=== PATIENT | female | born 1970 | race African-American/Black ===

== ENCOUNTER 2018-12-10 17:32 | Inpatient (IN) | payer BC, OTHER, SELFPAY ==
[2018-12-10] MEDS ORDERED: niCARdipine 20MG In NaCl 20 MG/200 ML BAG ONE ×2 (17:48→19:35)
[2018-12-10] MEDS ORDERED: Ondansetron PF 4 MG/2 ML Vial ONE (17:48)
[2018-12-10] MEDS ORDERED: Tranexamic Acid 1,000 MG/10 ML VIAL ONE (17:48)
[2018-12-10 17:53] LABS: #Basophils 0.1 thou/uL (0.0-0.2); #Eosinphils 0.2 thou/uL (0.0-0.7); #Lymphocytes 3.3 thou/uL (1.20-3.40); #Monocytes 1.1 thou/uL (0.11-0.59); #Neutrophils 5.7 thou/uL (1.40-6.50); %Basophils 0.7 % (0.0-1.0); %Eosinophils 1.5 % (0.0-10.0); %Lymphocytes 31.9 % (21.0-51.0); %Monocytes 10.5 % (0.0-10.0); %Neutrophils 55.4 % (42.0-75.0); Hemoglobin 12.9 g/dL (12.0-16.0); Mean Corpuscular Hemoglobin 28.5 pg (27.0-31.0); Mean Corpuscular Volume 89.1 fL (78.0-98.0); Mean Platelet Volume 9.6 fL (7.4-10.4); Platelet Count 318 thou/uL (130-400); RBC Distribution Width 14.3 % (11.5-14.5); Red Blood Cell (RBC) Count 4.52 mill/uL (4.20-5.40); White Blood Cell (WBC) Count 10.3 thou/uL (4.8-10.8)
[2018-12-10 17:57] LABS: PTT 33.5 SEC (22.9-36.1); Prothrombin Time 13.6 SEC (12.0-14.7)
[2018-12-10 18:28] LABS: ALT (SGPT) 12 U/L (8-55); AST (SGOT) 15 U/L (5-34); Alkaline Phosphatase 88 U/L (40-150); Anion Gap 15 mmol/L (10-20); BUN (Urea Nitrogen) 10 mg/dL (7.0-18.7); Bilirubin, Total 0.2 mg/dL (0.2-1.2); CK (CPK) 130 U/L (29-168); Calc. Creatinine Clearance 0 mL/min (70-130); Calcium 9.3 mg/dL (7.8-10.44); Chloride 106 mmol/L (98-107); Estimated GFR-MDRD 54; Globulin 3.8 g/dL (2.4-3.5); Glucose 95 mg/dL (70-105); Protein, Total 7.8 g/dL (6.0-8.3); Sodium 139 mmol/L (136-145)
[2018-12-10] MEDS ORDERED: Ondansetron PF 4 MG/2 ML Vial IVP PRN (18:28)
[2018-12-10] MEDS ORDERED: niCARdipine HCl 25 MG in Sodium Chloride 0.9% 250 ML 240 ML IVPB PRN (18:28)
[2018-12-10 18:31] LABS: Carbon Dioxide 21 mmol/L (22-29)
[2018-12-10] MEDS ORDERED: Morphine 4 MG/ML VIAL SLOW IVP PRN (18:32)
--- NOTE | 2018-12-10 18:58 | CT ---
CT HEAD NONCONTRAST: History: Fall. Dizziness. Altered mental status. FINDINGS: Centered at the left thalamus and basal ganglia is a large irregular shaped hyperdense fluid collecti on measuring up to 4.0 cm width x 2.0 cm depth. A small amount of hyperdense fluid extends into the s ulci about the left temporal lobe and frontal lobe. Small amount of hyperdense material within the di ffusely effaced lateral ventricles. There is diffuse effacement of the cerebral sulci. Minimal rightw sophia shift of the septum pellucidum. IMPRESSION: 1. Large intraaxial acute hematoma centered at the left thalamus with small amount of intraventricula r extension and small amount of subarachnoid component. 2. Severe cerebral edema. Findings were called to Dr. Walters in the Emergency Department at 1741 hours. Code CR. POS: DACIA
[2018-12-10 19:01] LABS: Bilirubin Negative (Negative); Blood, Urine Negative (Negative); Clarity CLEAR (Clear); Glucose, Urine (Dipstick) Negative (Negative); Leukocyte Negative (Negative); Nitrite Negative (Negative); Protein, Urine (Dipstick) 30 mg/dL (Neg-Trace); Specific Gravity, Urine 1.007 (1.002-1.036); Urobilinogen 0.2 mg/dL (0.2-1.0); pH, Urine 7.5 (5.0-9.0)
[2018-12-10 19:03] LABS: Bacteria/HPF None Seen HPF (None Seen); Hyaline Casts/LPF 0-3 HYALINE CAST LPF (0-3 Hyaline); RBC/HPF None Seen HPF (0-3); Squamous Epithelial 0-3 HPF (0-3); WBC/HPF 0-3 HPF (0-3)
--- NOTE | 2018-12-10 19:51 | RAD ---
RADIOGRAPH CHEST 1 VIEW: Date: 12/10/18 Time: 6:23 p.m. HISTORY: 48-year-old female with altered mental status. COMPARISON: None available. FINDINGS: Diffuse bilateral mixed interstitial-alveolar densities, probably representing pulmonary edema. Cardi omegaly. No pneumothorax identified. IMPRESSION: Cardiomegaly and diffuse infiltrates that probably represent pulmonary edema, suggestive of congestiv e heart failure. ARGENIS [] POS: JIN
[2018-12-10] MEDS ORDERED: Lorazepam 2 MG/ML VIAL ONE (20:59)
[2018-12-10] MEDS ORDERED: Midazolam HCl 2 mg/2 ml Vial ONE (20:59)
[2018-12-10] MEDS ORDERED: Propofol 1,000 MG/100 ML VIAL IV ONE (21:04)
[2018-12-10] MEDS: Sodium Chloride 0.9% 1,000 ML IV SCH (21:10)
[2018-12-10] MEDS ORDERED: CCU Electrolyte Replacement 1 EACH FS ONE (21:33)
[2018-12-10] MEDS ORDERED: Ventilator Sedation Protocol 1 EACH FS ONE (21:33)
[2018-12-10] MEDS ORDERED: Fentanyl BOLUS 250 ML IVPB PRN (21:37)
[2018-12-10] MEDS ORDERED: fentaNYL Citrate/PF 2,000 MCG in Sodium Chloride 0.9% 60 ML IV SCH (21:37)
[2018-12-10] MEDS ORDERED: Potassium Phosphate 12 MMOL in Sodium Chloride 0.9% 250 ML 250 ML IV PRN (21:37)
[2018-12-10] MEDS ORDERED: DISCONTINUE PREVIOUS NARCOTIC PAIN MEDICATIONS AND BENZODIAZEPINES FS SCH (21:37)
[2018-12-10] MEDS ORDERED: Lorazepam 2 MG/ML VIAL SLOW IVP PRN (21:37)
[2018-12-10] MEDS ORDERED: Potassium Phosphate 9 MMOL in Sodium Chloride 0.9% 100 ML IVPB PRN (21:37)
[2018-12-10] MEDS ORDERED: Propofol BOLUS 1,000 MG/100 ML VIAL IV PRN (21:37)
[2018-12-10] MEDS ORDERED: CCU ELECTROLYTE REPLACEMENT PROTOCOL FS PRN (21:37)
[2018-12-10] MEDS ORDERED: Potassium Chloride 40 MEQ in Sodium Chloride 0.9% 250 ML 250 ML IVPB PRN (21:37)
[2018-12-10] MEDS ORDERED: Potassium Chloride 40 MEQ in Premix Bag 1 BAG IVPB PRN (21:37)
[2018-12-10] MEDS ORDERED: Magnesium 2 GM/NS 0.9% 100 ML 2 GM in Premix Bag 1 BAG IVPB PRN (21:37)
[2018-12-10] MEDS ORDERED: Potassium Phosphate 15 MMOL in Sodium Chloride 0.9% 250 ML 250 ML IV PRN (21:37)
[2018-12-10] MEDS ORDERED: Magnesium Oxide 400 MG TAB PO PRN ×2 (21:37)
[2018-12-10] MEDS: niCARdipine HCl 50 MG in Sodium Chloride 0.9% 250 ML 230 ML IVPB PRN (21:39)
[2018-12-10 21:55] LABS: Actual Bicarbonate (HCO3a) 26.6 mEq/L (22-28); Base Excess (BEa) 2.8 mEq/L (-2.0 to +3.0); CO2 Tension 38.3 mmHg (35.0-45.0); Calcium, Ionized 1.12 mmol/L (1.12-1.30); Hemoglobin (Hb) 13.2 g/dL (12.0-16.0); O2 Tension (PaO2) 76.5 mmHg (80.0-100.0); Potassium - ABG Lab 3.01 mmol/L (3.70-5.30); pH, Arterial 7.46 (7.35-7.45)
[2018-12-10] MEDS ORDERED: Potassium Chloride 40 MEQ in Sodium Chloride 0.9% 500 ML IVPB ONE (22:00)
[2018-12-10] MEDS: Labetalol HCl 100 MG/20 ML VIAL SLOW IVP PRN (22:11)
[2018-12-10] MEDS: Famotidine/PF 20 mg/2ml Vial SLOW IVP SCH (22:12)
[2018-12-10 22:40] LABS: ALV-art Gradient 160.825 (0-20); Puncture Site LRA
--- NOTE | 2018-12-10 22:49 | OP ---
DATE OF PROCEDURE: 12/10/2018 PROCEDURE: Fiberoptic bronchoscopy with endotracheal intubation. PREOPERATIVE DIAGNOSIS: Impending respiratory failure after thalamic bleed. POSTOPERATIVE DIAGNOSIS: Successful intubation. ANESTHESIA: Given 2 mg of Versed IV. DESCRIPTION OF PROCEDURE: This was done on an emergent basis because for airway control. Bite block was placed in the patient's mouth. She was given 2 mg of Versed IV for induction. Bronchoscope was placed through the bite block. Vocal cords identified and the scope was passed through the vocal cords. A 7.5 endotracheal tube was passed over the scope into the airway and the endotracheal tube was secured at 22 cm of the lip with the tube approximately 4 cm above the vijay. The patient was then placed on mechanical ventilation. Job ID: [id number]
[2018-12-10 23:06] LABS: Pregnancy Test - Urine (BHCG) Negative (Negative); Pregu Control Background? CLEAR/WHITE (CLR/WHITE); Pregu Control Bar Appear? YES (CONTROL BAR); Specific Gravity 1.009 (1.002-1.036)
--- NOTE | 2018-12-10 23:18 | CON ---
DATE OF CONSULTATION: 12/10/2018 PULMONARY CRITICAL CARE CONSULTATION CONSULTING PROVIDER: Francine Emanuel PA-C from the Neurosurgical Service. The following encompassed 45 minutes of critical care time and is not inclusive of the time spent performing bronchoscopic endotracheal intubation. HISTORY OF PRESENT ILLNESS: At the time of this dictation, history and physical was not on the chart, so I am relying on what is written in the emergency room report. She is a 48-year-old black female, who was brought to the ER by her after they were shopping and she was complaining of dizziness and right lower extremity weakness. Apparently, she became obtunded in the ER. GCS was listed as 8. I was called by the nursing staff in the ICU, because of concern of the patient's airway. I have not heard about the patient prior to her arrival in the CCU. Upon my arrival, the patient was clearly in respiratory distress. Unable to handle her secretions and necessitated emergent endotracheal intubation. PAST MEDICAL HISTORY: 1. Hypertension. 2. Hyperlipidemia. PAST SURGICAL HISTORY: Cholecystectomy. PSYCHIATRIC HISTORY: Not known. SOCIAL HISTORY: Apparently does not smoke. Does not use drugs. Does not consume alcohol. ALLERGIES: NONE. MEDICATIONS: Prior to admission, aspirin 81 mg daily is listed. REVIEW OF SYSTEMS: Unobtainable. FAMILY MEDICAL HISTORY: Unknown. PHYSICAL EXAMINATION: VITAL SIGNS: Heart rate 97, blood pressure 177/92, O2 saturation 94%, respiratory rate 21. GENERAL: This is a middle-aged female, who is obtunded before intubated. HEENT: She would further open her eyelids, but she had dysconjugate gaze. She was unable to move her right arm or right leg. She did spontaneously move her left arm and had slight movement of her left leg. HEENT examination is remarkable for enlarged tongue. NECK: No adenopathy or JVD. LUNGS: Clear without wheezing or rhonchi. CARDIOVASCULAR: S1 and S2 regular. ABDOMEN: Soft, obese, nontender. EXTREMITIES: No clubbing, cyanosis, or edema. LABORATORY DATA: Sodium 139, potassium 3, chloride 106, CO2 of 21, BUN 10, creatinine 1.0, glucose 95, albumin 4.0. Urinalysis shows some proteinuria. INR 1.0, PTT 33.5, white blood cell count 10.3, hematocrit 40.3, and platelet count 318. Her CT of the brain shows a left thalamic area bleed with small amount of intraventricular extension and small subarachnoid component. She had severe cerebral edema present. Her chest x-ray shows cardiomegaly, no effusion or infiltrate that is obvious. ASSESSMENT: 1. Large thalamic bleed. 2. Cerebral edema. 3. Impending respiratory failure, secondary to airway compromise. 4. Hypokalemia. PLAN: 1. The patient needed emergent endotracheal intubation. See separate operative report. Intubation was obtained on the first try bronchoscopically with 7.5 endotracheal tube and position was confirmed by the bronchoscope. 2. Hypertension, controlled with Cardene. 3. Need to touch base with Neurosurgery concerning management of cerebral edema. 4. Mechanical ventilatory support. 5. Replace potassium. Job ID: [id number]
--- NOTE | 2018-12-10 23:28 | CT ---
CT HEAD NONCONTRAST: 12/10/18 HISTORY: Intracranial hemorrhage. Worsening mental state. COMPARISON: Earlier exam on the same date. FINDINGS: Large left basal ganglia hematoma has increased in size up to 5.1 x 2.1 cm diameters on the axial adi ges. There is now continuity with an increasing amount of intraventricular hemorrhage. Temporal horns are slightly dilated. Left temporofrontal subarachnoid hemorrhage has increased slightly. Diffuse ef facement of the cerebral sulci remains. IMPRESSION: Significant worsening of intraparenchymal hematoma and subarachnoid hemorrhage with interventricular extension and developing hydrocephalus. Findings were called to Francine Reesndez at 2317 hours. Code CR POS: [email or web address]
[2018-12-10] MEDS ORDERED: manNITOL 20% 500 ML IVPB SCH (23:45)
[2018-12-10] MEDS: hydrALAZINE 20 MG/ML VIAL SLOW IVP PRN (23:59)
[2018-12-11] MEDS ORDERED: Dextrose 5% in Water 1,000 ML IV PRN ×2 (00:38→08:39)
[2018-12-11] MEDS ORDERED: Dextrose 50% Abboject 50 ML SYRINGE SLOW IVP PRN ×2 (00:38→08:39)
[2018-12-11] MEDS ORDERED: HumaLOG 300 UNITS/3 ML VIAL SC PRN ×2 (00:38)
--- NOTE | 2018-12-11 00:42 | PDOC.PN ---
- Subjective Encounter Start Date: 12/11/18 Encounter Start Time: 00:40 Subjective: Pt seen & examined in CCU.Chart reviewed in detail.discussed w RN -: admitted to NS for ICH.R sided weakness BASTING MARKER. -: Ct shows Left sided ICH w intraventricular extension & edema Repeat CT shows worsening edema and extension of hemorrhage IM team consulted for medical management and BP management Pt was intubated earlier for airway protection.Currently sedated. - Objective MAR Reviewed: Yes Vital Signs & Weight: Vital Signs (12 hours) Pulse Resp Pulse Ox 12/10/18 23:59 93 12/10/18 23:34 93 19 99 12/10/18 22:11 96 Weight Weight 245 lb 9.519 oz Most Recent Monitor Data Heart Rate from ECG 92 NIBP 177/92 NIBP BP-Mean 120 Respiration from ECG 17 SpO2 100 Result Diagrams: 12/10/18 17:40 12/10/18 18:00 Additional Labs: Accuchecks 12/10/18 17:38 POC Glucose 108 Laboratory Tests 12/10/18 12/10/18 17:40 22:34 Troponin I Less than 0.010 Urine Test Negative Phys Exam - Physical Examination Constitutional: NAD sedated.R side w some twitching ,o/w immobile HEENT: moist MMs, sclera anicteric, oral pharynx no lesions ETT.Pinpoint pupils w/o reaction to light Neck: no nodes, no JVD, supple, full ROM Respiratory: no wheezing, no rales, no rhonchi, clear to auscultation bilateral Cardiovascular: RRR, no significant murmur Gastrointestinal: soft, non-tender, no distention, positive bowel sounds Musculoskeletal: no edema, pulses present limited d/t sedation.pupils non reactive.R hemiparesis Deviation from normal: sedated Skin: no rash Dx/Plan (1) ICH (intracerebral hemorrhage) Code(s): I61.9 - NONTRAUMATIC INTRACEREBRAL HEMORRHAGE, UNSPECIFIED Status: Acute Qualifiers: Intracerebral hemorrhage etiology: nontraumatic Laterality: left Comment: elainaley hypertensive (2) Hypertensive emergency Code(s): I16.1 - HYPERTENSIVE EMERGENCY Status: Acute (3) Hyperglycemia Code(s): R73.9 - HYPERGLYCEMIA, UNSPECIFIED Status: Acute (4) Hypokalemia Code(s): E87.6 - HYPOKALEMIA Status: Acute - Plan DVT proph w/SCDs Cont Nicardipine drip. add PRN labetalol & Prn hydralazine -: Started on Mannitol per NS w frequent Osmolality check -: may need Antiepileptics for seizure prophylaxis -: replace and recheck Potassium.CCU electrolyte protocol. -: Target SBP<140. * .Vent support. * am labs * IM team will follow. * Poor prognosis given the severity and now extension of hemorrhage on repeat CT. * family notified by PCCM team. not here anymore per NS[facility] staff Review of Systems - Review of Systems Other: can not be obtained due to intubated and sedated state - Medications/Allergies Allergies/Adverse Reactions: Allergies Allergy/AdvReac Type Severity Reaction Status Date / Time No Known Drug Allergies Allergy Verified 12/10/18 22:13 Medications: Current Medications Albuterol/Ipratropium (Duoneb) 3 ml NEB [id number] SASCHA Last Admin: 12/10/18 23:34 Dose: 3 ml Dextrose/Water (Dextrose 50%) 25 gm SLOW IVP PRN PRN PRN Reason: Hypoglycemia Famotidine (Pepcid) 20 mg SLOW IVP Q12HR SASCHA Last Admin: 12/10/18 22:12 Dose: 20 mg Glucagon (Glucagon) 1 mg IM PRN PRN PRN Reason: Hypoglycemia Hydralazine HCl (Apresoline) 10 mg SLOW IVP Q4H PRN PRN Reason: SBP>160 Last Admin: 12/10/18 23:59 Dose: 10 mg Acetaminophen 650 mg/ Device 65 mls @ 260 mls/hr IVPB Q6H PRN PRN Reason: Pain Stop: 12/11/18 18:33 Sodium Chloride (Normal Saline 0.9%) 1,000 mls @ 80 mls/hr IV .[id number] SASCHA Last Admin: 12/10/18 21:10 Dose: 1,000 mls Nicardipine HCl 50 mg/ Sodium (Chloride) 250 mls @ 0 mls/hr IVPB INF PRN; Protocol PRN Reason: SBP > 150 or DBP > 90 Last Admin: 12/10/18 21:39 Dose: 250 mls Fentanyl Citrate 2,000 mcg/ (Sodium Chloride) 100 mls @ 0 mls/hr IV INF SASCHA; Protocol Stop: 01/09/19 21:37 Fentanyl Citrate (Fentanyl Bolus) 250 mls @ 0 mls/hr IVPB PRN PRN PRN Reason: Breakthrough pain/agitation Stop: 01/09/19 21:37 Potassium Chloride 40 meq/ (Sodium Chloride) 270 mls @ 135 mls/hr IVPB ASDIR PRN PRN Reason: FOR SERUM K+ 2.5 - 3.5 Potassium Chloride 40 meq/ (Device) 100 mls @ 50 mls/hr IVPB ASDIR PRN PRN Reason: FOR SERUM K+ 2.5 - 3.5 Magnesium Sulfate 1 gm/ Sodium (Chloride) 102 mls @ 102 mls/hr IV PRN PRN PRN Reason: MAG LEVEL 1.4 - 2.0 Magnesium Sulfate 2 gm/ Device 100 mls @ 100 mls/hr IVPB ASDIR PRN PRN Reason: MAGNESIUM < 1.4 Potassium Phosphate 9 mmol/ (Sodium Chloride) 103 mls @ 25.75 mls/hr IVPB ASDIR PRN PRN Reason: Phosphate 1.0-1.8 Potassium Phosphate 12 mmol/ (Sodium Chloride) 254 mls @ 63.5 mls/hr IV ASDIR PRN PRN Reason: Serum phosphate 0.5-0.9 Potassium Phosphate 15 mmol/ (Sodium Chloride) 255 mls @ 63.75 mls/hr IV ASDIR PRN PRN Reason: Serum Phos < 0.5 Potassium Chloride 40 meq/ (Sodium Chloride) 520 mls @ 130 mls/hr IVPB NOW ONE Stop: 12/11/18 01:59 Last Admin: 12/10/18 22:07 Dose: 520 mls Mannitol (Mannitol 20%) 500 mls @ 500 mls/hr IVPB NOW SASCHA Stop: 12/11/18 01:45 Last Admin: 12/11/18 00:13 Dose: 500 mls Dextrose/Water (D5w) 1,000 mls @ 0 mls/hr IV .Q0M PRN PRN Reason: Hypoglycemia Insulin Human Lispro (Humalog) 0 units SC .MODERATE SLIDING SC PRN PRN Reason: Moderate Correctional Scale Insulin Human Lispro (Humalog) 0 units SC .BEDTIME SLIDING SC PRN PRN Reason: Bedtime Correctional Scale Labetalol HCl (Normodyne) 10 mg SLOW IVP Q4H PRN PRN Reason: SBP Greater Than 180 Last Admin: 12/10/18 22:11 Dose: 10 mg Lorazepam (Ativan) 2 mg SLOW IVP Q1H PRN PRN Reason: Breakthrough agitation Stop: 01/09/19 21:37 Magnesium Oxide (Magnesium Oxide) 400 mg PO BIDPRN PRN PRN Reason: FOR SERUM MAG 1.4 - 2.0 Magnesium Oxide (Magnesium Oxide) 800 mg PO PRN PRN PRN Reason: FOR SERUM MAG < 1.4 Mannitol (Mannitol) 25 gm IV Q6HR SASCHA Miscellaneous Medication (Phos-Nak) 1 pkt PO TIDPRN PRN PRN Reason: FOR PHOS LEVEL 1.0 - 1.8 Miscellaneous Medication (Phos-Nak) 2 pkt PO TIDPRN PRN PRN Reason: FOR PHOS LEVEL 0.5 - 1.0 Morphine Sulfate (Morphine) 2 mg SLOW IVP Q1H PRN PRN Reason: BREAKTHROUGH PAIN/Agitation Stop: 01/09/19 21:37 Discontinue Previous Narcotic Pain Medications And Benzodiazepines 1 each FS .ONE SASCHA Stop: 01/09/19 21:37 Ccu Electrolyte (Replacement Protocol) 0 each FS PRN PRN PRN Reason: FOR ELECTROLYTE REPLACEMENT Ondansetron HCl (Zofran) 4 mg IVP BIDPRN PRN PRN Reason: Nausea/Vomiting Potassium Chloride (K-Dur) 40 meq PO ASDIR PRN PRN Reason: FOR SERUM K+ 2.5 - 3.5 Potassium Chloride (Klor-Con) 40 meq PER TUBE ASDIR PRN PRN Reason: FOR SERUM K+ 2.5-3.5 Propofol (Diprivan) 1,000 mg IV INF PRN; Protocol PRN Reason: TO ACHIEVE GOAL RASS Stop: 01/09/19 21:37 Propofol (Diprivan Bolus) 20 mg IV Q5MIN PRN PRN Reason: BREAKTHROUGH AGITATION Stop: 01/09/19 21:37 Sodium Chloride (Flush - Normal Saline) 10 ml IVF PRN PRN PRN Reason: Saline Flush
--- NOTE | 2018-12-11 01:00 | HP ---
ATTENDING PHYSICIAN: Juan M Mcguire MD HISTORY OF PRESENT ILLNESS: The patient is a 48-year-old female with a past medical history of hypertension, noncompliant on her medication per her , who presented to the emergency department per POV following sudden onset of dizziness and right-sided weakness while shopping at the grocery store. This began around 1700. She had worsens by the time she arrived to the emergency department and was only following some commands with significant right-sided weakness, altered mental status, and moaning. CT head was done on arrival, which was notable for a large left basal ganglia and thalamic intracranial hemorrhage with some intraventricular extension. The patient was also significantly hypertensive on arrival. Blood pressure on arrival was 263/131. Cardene drip was started shortly after that time. Neurosurgery was consulted for further management of acute intracranial hemorrhage. I presented to the emergency department to evaluate the patient. She has a GCS of 12. Her eyes are open spontaneously. She is moaning and she will follow some commands with the left upper extremity. Her blood pressure was beginning to improve with most recent of 204/127. Unfortunately, the history is limited because of the patient's current condition and the is a very poor historian. PAST MEDICAL HISTORY: He reports the patient is hypertensive, but he is unsure if she is taking her medication. He believes she is likely noncompliant. He does report she has been known to take an 81 mg aspirin occasionally. PAST SURGICAL HISTORY: Cholecystectomy. SOCIAL HISTORY: She is , lives at home with her . She does not smoke, drink, or use any drugs. REVIEW OF SYSTEMS: Unobtainable. ALLERGIES: SHE HAS NO KNOWN DRUG ALLERGIES. PHYSICAL EXAMINATION: VITAL SIGNS: BP is 204/127, respiration rate is 32, the patient is 96% on 2 L nasal cannula. Her heart rate is 88 and her temperature is 91.1. CONSTITUTIONAL: The patient has a GCS of 12. She does open her eyes spontaneously. She is moaning. She is following commands with the left upper extremity. HEENT: Head is normocephalic and atraumatic. Eyes, PERRLA. Extraocular movements intact. ENT; oral mucosa is pink and moist. NECK: No evidence of tenderness to palpation. RESPIRATORY: She has symmetric chest expansion. She is breathing comfortably. No evidence of dyspnea or difficulty with her airway at this time. CARDIOVASCULAR: Regular rate and rhythm. EXTREMITIES: Cushing and warm with symmetric pulses. She has right-sided paresis and neglect. NEUROLOGIC: GCS of 12. Opens eyes spontaneously. She is moaning. She is following commands with the left upper extremity. She has right-sided neglect, but does have brisk withdrawal throughout. ASSESSMENT: Acute intracranial hemorrhage of the left basal ganglia and thalamic region which is likely hypertensive in origin, hypertensive crisis. PLAN: This is an unfortunate female who is noncompliant on her hypertensive medications, who suffered acute onset right-sided weakness with a CT head which shows intracranial hemorrhage of the left basal ganglia and thalamic region. This appears to be likely hypertensive in origin. A Cardene drip has been initiated in the emergency department and we will continue with a systolic blood pressure goal of 140. All anticoagulants will be held at this time. Her lab work is notable for normal platelets and coags. She will be admitted to the CCU where she can be monitored closely with q.1 neuro checks. Head of bed should be elevated to 30 degrees. We will consult Critical Care considering her guarded airway status. We will also ask Medicine Service to assist with medical management. I have ordered repeat a.m. CT head for further evaluation. I have discussed this plan with Dr. Mcguire who is in agreement. Job ID: [id number] MTDD
[2018-12-11] MEDS: Propofol 1,000 MG/100 ML VIAL IV PRN ×3 (03:45→23:19)
[2018-12-11] MEDS: niCARdipine HCl 50 MG in Sodium Chloride 0.9% 250 ML 230 ML IVPB PRN ×5 (04:14→23:38)
[2018-12-11 06:05] LABS: #Monocytes 1.4 thou/uL (0.11-0.59); #Neutrophils 15.7 thou/uL (1.40-6.50); %Basophils 0.1 % (0.0-1.0); %Eosinophils 0.2 % (0.0-10.0); %Lymphocytes 5.6 % (21.0-51.0); %Monocytes 7.5 % (0.0-10.0); %Neutrophils 86.5 % (42.0-75.0); Hemoglobin 12.6 g/dL (12.0-16.0); Mean Corpuscular HGB CONC 31.6 g/dL (32.0-36.0); Mean Corpuscular Hemoglobin 28.3 pg (27.0-31.0); Mean Corpuscular Volume 89.7 fL (78.0-98.0); Mean Platelet Volume 9.5 fL (7.4-10.4); Platelet Count 340 thou/uL (130-400); RBC Distribution Width 14.3 % (11.5-14.5); Red Blood Cell (RBC) Count 4.44 mill/uL (4.20-5.40); White Blood Cell (WBC) Count 18.1 thou/uL (4.8-10.8)
[2018-12-11 06:24] LABS: Anion Gap 13 mmol/L (10-20); BUN (Urea Nitrogen) 10 mg/dL (7.0-18.7); Calc. Creatinine Clearance 104 mL/min (70-130); Calcium 8.4 mg/dL (7.8-10.44); Carbon Dioxide 19 mmol/L (22-29); Chloride 110 mmol/L (98-107); Estimated GFR-MDRD 59; Glucose 166 mg/dL (70-105); Potassium 3.5 mmol/L (3.5-5.1); Sodium 138 mmol/L (136-145)
[2018-12-11 06:25] LABS: Magnesium 1.8 mg/dL (1.6-2.6)
[2018-12-11] MEDS: Mannitol 12.5 GM/50 ML IV SCH ×3 (06:25→19:28)
[2018-12-11 06:27] LABS: Phosphorus Less than 1.0 mg/dL (2.3-4.7)
[2018-12-11 07:01] LABS: Actual Bicarbonate (HCO3a) 17.1 mEq/L (22-28); Base Excess (BEa) -5.8 mEq/L (-2.0 to +3.0); CO2 Tension 26.3 mmHg (35.0-45.0); Calcium, Ionized 1.16 mmol/L (1.12-1.30); Carboxyhemoglobin (COHb) 0.9 gm% (0.0-3.0); Hemoglobin (Hb) 11.7 g/dL (12.0-16.0); O2 Tension (PaO2) 96.2 mmHg (80.0-100.0); Potassium - ABG Lab 3.62 mmol/L (3.70-5.30); pH, Arterial 7.43 (7.35-7.45)
[2018-12-11 07:02] LABS: Puncture Site RRA
[2018-12-11 07:03] LABS: ALV-art Gradient 120.475 (0-20)
[2018-12-11] MEDS ORDERED: Potassium Chloride 40 MEQ in Sodium Chloride 0.9% 250 ML 250 ML IVPB SCH (07:15)
--- NOTE | 2018-12-11 08:08 | CT ---
CT OF THE BRAIN WITHOUT CONTRAST: INDICATION: Followup intraparenchymal hematoma. COMPARISON: Prior exam dated 12/10/2018 at 11:14 p.m. and 12/10/2018 at 5:40 p.m. FINDINGS: The intraparenchymal hemorrhage centered within the left basal ganglia is slightly increased in size measuring 4.9 x 2.5 cm where it previously measured 5.1 x 2.1 cm. This is slightly larger than on th e prior exam. Subarachnoid hemorrhage extending into the left temporal frontal region appears largel y stable. There is stable effacement of portions of the cerebral cortex of the left frontal parietal region as well as the left temporal region. The extent of the intraventricular hemorrhage is stable . Dilatation of the lateral ventricles is stable with the anterior horn measuring up to 5.7 mm where it previously measured 5.8 mm. No midline shift is evident. Basal cisterns remain patent. Mastoid air cells are clear. The skull and extracranial soft tissues are unremarkable. IMPRESSION: 1. Slight interval enlargement of the intraparenchymal hematoma centered within the left basal gangl ia with mild surrounding vasogenic edema. The extent of the adjacent subarachnoid hemorrhage in the left frontotemporal region and intraventricular hemorrhage is stable. Diffuse sulcal effacement of t he left cerebral cortex is stable. 2. No midline shift is evident. POS: JAZLYN
[2018-12-11] MEDS: Labetalol HCl 100 MG/20 ML VIAL SLOW IVP PRN ×3 (08:31→18:26)
[2018-12-11] MEDS: Famotidine/PF 20 mg/2ml Vial SLOW IVP SCH ×2 (09:16→20:06)
[2018-12-11] MEDS: Acetaminophen 650 MG in Premix Bag 1 BAG IVPB PRN ×2 (09:17→14:47)
[2018-12-11] MEDS: Sodium Chloride 0.9% 1,000 ML IV SCH ×2 (09:17→22:10)
--- NOTE | 2018-12-11 09:26 | PRG ---
DATE OF SERVICE: 12/11/2018 SUBJECTIVE: The patient was seen and examined. I agree with Francine Emanuel's evaluation on 12/10/2018. The patient is a 48-year-old woman with known poorly managed hypertension, who suddenly became poorly responsive and dizzy yesterday while shopping in a supermarket. She was brought to the emergency room and found to be in hypertensive crisis with a systolic blood pressure of 260. She had gradual deterioration in the ER with some diminished level of consciousness. She was admitted to the hospital and then deteriorated further upon arrival to the ICU with continued deteriorating level of consciousness to the point that she was intubated due to poor airway secretion management. She is currently off Diprivan for the past 10 minutes and to stimulus, does open her eyes, turn her head appropriately and is purposeful briskly with the left arm and left side. She has a dense right hemiparesis. Her head CT shows a left posterior thalamic hemorrhage with some extension into the brainstem and some extension into the ventricular system as well as the left hemisphere. There is modest mass effect. This worsened on the initial followup scan but was stable this morning. There is a subtle amount of hydrocephalus. IMPRESSION AND PLAN: The patient had a very serious thalamic hemorrhage which is undoubtedly hypertensive in origin. There is no direct surgical option for the intracranial hemorrhage. She had developed very mild hydrocephalus and mild mass effect, so we have been treating this with mannitol and she has been both clinically and radiographically stable. Currently, she is at high risk from this life-threatening hemorrhage and I would estimate high risk of continued deterioration. If she can survive the acute phase, she does have some prospects for meaningful recovery over time. I updated her and daughter. Job ID: [id number]
--- NOTE | 2018-12-11 10:04 | PRG ---
DATE OF SERVICE: 12/11/2018 TIME SPENT: This is 35 minutes of critical care time. SUBJECTIVE: The patient remains intubated on mechanical ventilation. There have been no acute changes in her neuro status overnight. She did receive some mannitol last night and this morning and repeat CT of the head showing increased bleeding in the thalamic region now extending into the ventricles. OBJECTIVE: VITAL SIGNS: Currently, her temperature is 98.8, pulse 105, blood pressure 151/66, O2 saturation 100%. A 24-hour intake was 1990, output 1929. HEENT: Her eyes are deviated downwardly and to the left. Pupils are 3 mm, it is same, but I cannot get a brisk pupillary reflex. NECK: No adenopathy. No JVD. LUNGS: Clear anteriorly. CARDIOVASCULAR: S1 and S2, regular. ABDOMEN: Soft, nontender. EXTREMITIES: No clubbing, cyanosis, or edema. NEUROLOGIC: She will withdraw with both her feet and her left arm, will not withdraw with her right arm, but does not grimace when pain is applied to the right arm. LABORATORY DATA: White blood cell count 18.1, hemoglobin 12.6, hematocrit 39.9, and platelet count 340. PH 7.43, pCO2 of 26, pO2 96 on SIMV rate 12, tidal volume 500, PEEP 5, pressure support 10, FiO2 of 35%. Sodium 138, potassium 3.5, chloride 110, CO2 of 19, BUN 10, creatinine 1.2, and glucose 166. ASSESSMENT: 1. Acute respiratory failure, requiring mechanical ventilation. The reason for the respiratory failure is airway compromise secondary to her thalamic bleed. 2. Status post hypertensive thalamic bleed. 3. Severe hypertension. 4. Hyperglycemia that is probably reactive. PLAN: 1. Insert OG tube. 2. Start tube feeds. 3. Adjust mechanical ventilation settings. 4. Further care per Neurosurgical Team. 5. Closely monitor the patient's electrolytes. Job ID: [id number]
[2018-12-11 10:08] LABS: Acetaminophen Less than 6.0 mcg/mL (10.0-30.0); Alcohol Less than 10 mg/dL (Less than 10); Salicylate Less than 8.0 mg/dL (15.0-30.0)
[2018-12-11] MEDS ORDERED: Metoprolol Tartrate 25 MG TAB PER TUBE SCH (11:15)
--- NOTE | 2018-12-11 13:34 | RAD ---
RADIOGRAPH CHEST 1 VIEW: Date: 12/11/2018. Time: 4:50 a.m. HISTORY: A 48-year-old female in respiratory failure. COMPARISON: 12/10/2018, 6:23 p.m. FINDINGS: Endotracheal tube has been placed into the mid thoracic trachea. Cardiomegaly. Alveolar infiltrates in the perihilar region of right mid lung zone, and at the bilateral lung bases. No pneumothorax. IMPRESSION: 1. Status post intubation. 2. No other significant interval change. 3. No significant interval change in the bilateral infiltrates and cardiomegaly. ARGENIS [] POS: STELLA
--- NOTE | 2018-12-11 15:33 | PDOC.PN ---
- Subjective Encounter Start Date: 12/11/18 Encounter Start Time: 12:15 Subjective: on vent, mild sedation -: daughter at bedside -: was moving all her extremities except right Upper per staff - Objective MAR Reviewed: Yes Vital Signs & Weight: Vital Signs (12 hours) Temp Pulse Resp BP Pulse Ox 12/11/18 14:21 88 135/70 12/11/18 13:13 85 143/75 H 12/11/18 13:12 85 18 99 12/11/18 12:00 16 12/11/18 11:16 111 H 193/85 H 12/11/18 10:14 103 H 168/77 H 12/11/18 10:00 20 12/11/18 08:31 109 H 171/69 H 12/11/18 08:00 24 H 12/11/18 07:00 100.8 F H 12/11/18 06:13 121 H 151/66 H 12/11/18 06:11 108 H 24 H 99 12/11/18 06:00 29 H 12/11/18 04:00 98.8 F 27 H Weight Weight 246 lb 11.156 oz Most Recent Monitor Data Heart Rate from ECG 87 NIBP 155/82 NIBP BP-Mean 106 Respiration from ECG 5 SpO2 100 I&O: 12/10/18 12/11/18 12/12/18 06:59 06:59 06:59 Intake Total 1991.2 718 Output Total 1930 1610 Balance 61.2 -892 Result Diagrams: 12/11/18 05:25 12/11/18 05:53 Additional Labs: Accuchecks 12/11/18 12/10/18 09:12 17:38 POC Glucose 124 H 108 Phys Exam - Physical Examination HEENT: PERRLA, sclera anicteric Neck: no JVD, supple Respiratory: no wheezing, no rales Cardiovascular: RRR, no significant murmur Gastrointestinal: soft, no distention, positive bowel sounds Musculoskeletal: no edema, pulses present right hemiparesis Dx/Plan (1) ICH (intracerebral hemorrhage) Code(s): I61.9 - NONTRAUMATIC INTRACEREBRAL HEMORRHAGE, UNSPECIFIED Status: Acute Qualifiers: Intracerebral hemorrhage etiology: nontraumatic Laterality: left Comment: left thalamic with extension (2) Hypertensive emergency Code(s): I16.1 - HYPERTENSIVE EMERGENCY Status: Acute (3) Obesity Code(s): E66.9 - OBESITY, UNSPECIFIED Status: Chronic Qualifiers: Obesity classification: adult class 3 (BMI >= 40) Body mass index: BMI 40.0 -44.9 (4) Hyperglycemia Code(s): R73.9 - HYPERGLYCEMIA, UNSPECIFIED Status: Acute - Plan on cardene drip -: mannitor for cerebral edema, watch for overdiuresis -: weaning when encephalopathy clears -: nebs, ng feeding has been initiated -: will f/u * . Review of Systems - Medications/Allergies Allergies/Adverse Reactions: Allergies Allergy/AdvReac Type Severity Reaction Status Date / Time No Known Drug Allergies Allergy Verified 12/10/18 22:13 Medications: Current Medications Albuterol/Ipratropium (Duoneb) 3 ml NEB [id number] [facility] Last Admin: 12/11/18 13:12 Dose: 3 ml Dextrose/Water (Dextrose 50%) 25 gm SLOW IVP PRN PRN PRN Reason: Hypoglycemia Famotidine (Pepcid) 20 mg SLOW IVP Q12HR [facility] Last Admin: 12/11/18 09:16 Dose: 20 mg Glucagon (Glucagon) 1 mg IM PRN PRN PRN Reason: Hypoglycemia Hydralazine HCl (Apresoline) 10 mg SLOW IVP Q4H PRN PRN Reason: SBP>160 Last Admin: 12/10/18 23:59 Dose: 10 mg Acetaminophen 650 mg/ Device 65 mls @ 260 mls/hr IVPB Q6H PRN PRN Reason: Pain Stop: 12/11/18 18:33 Last Admin: 12/11/18 14:47 Dose: 65 mls Sodium Chloride (Normal Saline 0.9%) 1,000 mls @ 80 mls/hr IV .[id number] [facility] Last Admin: 12/11/18 09:17 Dose: 1,000 mls Nicardipine HCl 50 mg/ Sodium (Chloride) 250 mls @ 0 mls/hr IVPB INF PRN; Protocol PRN Reason: SBP > 150 or DBP > 90 Last Admin: 12/11/18 11:14 Dose: 250 mls Fentanyl Citrate 2,000 mcg/ (Sodium Chloride) 100 mls @ 0 mls/hr IV INF [facility]; Protocol Stop: 01/09/19 21:37 Fentanyl Citrate (Fentanyl Bolus) 250 mls @ 0 mls/hr IVPB PRN PRN PRN Reason: Breakthrough pain/agitation Stop: 01/09/19 21:37 Potassium Chloride 40 meq/ (Sodium Chloride) 270 mls @ 135 mls/hr IVPB ASDIR PRN PRN Reason: FOR SERUM K+ 2.5 - 3.5 Potassium Chloride 40 meq/ (Device) 100 mls @ 50 mls/hr IVPB ASDIR PRN PRN Reason: FOR SERUM K+ 2.5 - 3.5 Magnesium Sulfate 1 gm/ Sodium (Chloride) 102 mls @ 102 mls/hr IV PRN PRN PRN Reason: MAG LEVEL 1.4 - 2.0 Magnesium Sulfate 2 gm/ Device 100 mls @ 100 mls/hr IVPB ASDIR PRN PRN Reason: MAGNESIUM < 1.4 Potassium Phosphate 9 mmol/ (Sodium Chloride) 103 mls @ 25.75 mls/hr IVPB ASDIR PRN PRN Reason: Phosphate 1.0-1.8 Potassium Phosphate 12 mmol/ (Sodium Chloride) 254 mls @ 63.5 mls/hr IV ASDIR PRN PRN Reason: Serum phosphate 0.5-0.9 Potassium Phosphate 15 mmol/ (Sodium Chloride) 255 mls @ 63.75 mls/hr IV ASDIR PRN PRN Reason: Serum Phos < 0.5 Levetiracetam 500 mg/ Device 100 mls @ 200 mls/hr IVPB BID [facility] Last Admin: 12/11/18 01:08 Dose: 100 mls Dextrose/Water (D5w) 1,000 mls @ 0 mls/hr IV .Q0M PRN PRN Reason: Hypoglycemia Insulin Human Lispro (Humalog) 0 units SC .MODERATE SLIDING SC PRN PRN Reason: Moderate Correctional Scale Insulin Human Lispro (Humalog) 0 units SC .BEDTIME SLIDING SC PRN PRN Reason: Bedtime Correctional Scale Labetalol HCl (Normodyne) 10 mg SLOW IVP Q4H PRN PRN Reason: SBP Greater Than 180 Last Admin: 12/11/18 11:16 Dose: 10 mg Lorazepam (Ativan) 2 mg SLOW IVP Q1H PRN PRN Reason: Breakthrough agitation Stop: 01/09/19 21:37 Magnesium Oxide (Magnesium Oxide) 400 mg PO BIDPRN PRN PRN Reason: FOR SERUM MAG 1.4 - 2.0 Magnesium Oxide (Magnesium Oxide) 800 mg PO PRN PRN PRN Reason: FOR SERUM MAG < 1.4 Mannitol (Mannitol) 25 gm IV Q6HR [facility] Last Admin: 12/11/18 12:57 Dose: 25 gm Metoprolol Tartrate (Lopressor) 25 mg PER TUBE BID [facility] Miscellaneous Medication (Phos-Nak) 1 pkt PO TIDPRN PRN PRN Reason: FOR PHOS LEVEL 1.0 - 1.8 Miscellaneous Medication (Phos-Nak) 2 pkt PO TIDPRN PRN PRN Reason: FOR PHOS LEVEL 0.5 - 1.0 Last Admin: 12/11/18 13:54 Dose: 2 pkt Morphine Sulfate (Morphine) 2 mg SLOW IVP Q1H PRN PRN Reason: BREAKTHROUGH PAIN/Agitation Stop: 01/09/19 21:37 Discontinue Previous Narcotic Pain Medications And Benzodiazepines 1 each FS .ONE [facility] Stop: 01/09/19 21:37 Ccu Electrolyte (Replacement Protocol) 0 each FS PRN PRN PRN Reason: FOR ELECTROLYTE REPLACEMENT Ondansetron HCl (Zofran) 4 mg IVP BIDPRN PRN PRN Reason: Nausea/Vomiting Potassium Chloride (K-Dur) 40 meq PO ASDIR PRN PRN Reason: FOR SERUM K+ 2.5 - 3.5 Potassium Chloride (Klor-Con) 40 meq PER TUBE ASDIR PRN PRN Reason: FOR SERUM K+ 2.5-3.5 Propofol (Diprivan) 1,000 mg IV INF PRN; Protocol PRN Reason: TO ACHIEVE GOAL RASS Stop: 01/09/19 21:37 Last Admin: 12/11/18 13:48 Dose: 1,000 mg Propofol (Diprivan Bolus) 20 mg IV Q5MIN PRN PRN Reason: BREAKTHROUGH AGITATION Stop: 01/09/19 21:37 Sodium Chloride (Flush - Normal Saline) 10 ml IVF PRN PRN PRN Reason: Saline Flush
[2018-12-11 17:42] LABS: Potassium 3.3 mmol/L (3.5-5.1)
[2018-12-11 18:03] LABS: Amphetamine Not Detected (NotDetected); Barbiturates Screen Not Detected (NotDetected); Benzodiazepine Screen Not Detected (NotDetected); Cocaine Metabolite Screen Not Detected (NotDetected); Medtox Control Line Valid? VALID (VALID); Medtox Reader # READER 1; Methadone Not Detected (NotDetected); Methamphetamine Not Detected (NotDetected); Opiate Screen Not Detected (NotDetected); Oxycodone Screen Not Detected (NotDetected); Phencyclidine (PCP) Not Detected (NotDetected); THC/Cannabinoid Screen Not Detected (NotDetected); Tricyclic Screen Not Detected (NotDetected)
[2018-12-11] MEDS: Metoprolol Tartrate 25 MG TAB PER TUBE SCH (20:06)
[2018-12-12] MEDS: Mannitol 12.5 GM/50 ML IV SCH ×4 (00:13→20:07)
[2018-12-12] MEDS: Acetaminophen 1,000 MG in Premix Bag 1 BAG IVPB PRN ×4 (01:18→21:56)
[2018-12-12] MEDS: Labetalol HCl 100 MG/20 ML VIAL SLOW IVP PRN ×2 (01:35→12:51)
[2018-12-12] MEDS: niCARdipine HCl 50 MG in Sodium Chloride 0.9% 250 ML 230 ML IVPB PRN ×5 (03:45→19:38)
[2018-12-12 04:53] LABS: Anion Gap 15 mmol/L (10-20); BUN (Urea Nitrogen) 7 mg/dL (7.0-18.7); Calc. Creatinine Clearance 121 mL/min (70-130); Calcium 8.7 mg/dL (7.8-10.44); Carbon Dioxide 17 mmol/L (22-29); Chloride 114 mmol/L (98-107); Estimated GFR-MDRD 70; Glucose 159 mg/dL (70-105); Phosphorus 1.5 mg/dL (2.3-4.7); Potassium 3.4 mmol/L (3.5-5.1); Sodium 143 mmol/L (136-145)
[2018-12-12] MEDS: Propofol 1,000 MG/100 ML VIAL IV PRN (05:03)
[2018-12-12 05:10] LABS: Band 9 % (5-11); Hemoglobin 12.3 g/dL (12.0-16.0); Lymphocytes 4 % (21-51); MDiff Complete? YES; Mean Corpuscular HGB CONC 31.7 g/dL (32.0-36.0); Mean Corpuscular Hemoglobin 27.8 pg (27.0-31.0); Mean Corpuscular Volume 87.8 fL (78.0-98.0); Mean Platelet Volume 9.3 fL (7.4-10.4); Monocytes 3 % (0-10); Neutrophil 84 % (42-75); Platelet Count 363 thou/uL (130-400); Platelet Morphology Comment Appears Adequate; RBC Distribution Width 14.3 % (11.5-14.5); RBC Morphology Normal; Red Blood Cell (RBC) Count 4.43 mill/uL (4.20-5.40); White Blood Cell (WBC) Count 33.1 thou/uL (4.8-10.8)
[2018-12-12 07:15] LABS: Actual Bicarbonate (HCO3a) 19.9 mEq/L (22-28); Base Excess (BEa) -1.7 mEq/L (-2.0 to +3.0); Calcium, Ionized 1.14 mmol/L (1.12-1.30); Carboxyhemoglobin (COHb) 1.4 gm% (0.0-3.0); Hemoglobin (Hb) 12.8 g/dL (12.0-16.0); O2 Tension (PaO2) 63.9 mmHg (80.0-100.0); Potassium - ABG Lab 4.02 mmol/L (3.70-5.30); pH, Arterial 7.51 (7.35-7.45)
[2018-12-12 07:16] LABS: CO2 Tension 25.6 mmHg (35.0-45.0)
[2018-12-12 07:17] LABS: Puncture Site LRA
[2018-12-12] MEDS: Metoprolol Tartrate 25 MG TAB PER TUBE SCH ×2 (09:24→21:17)
[2018-12-12] MEDS: Famotidine/PF 20 mg/2ml Vial SLOW IVP SCH ×2 (09:24→21:17)
[2018-12-12] MEDS: Sodium Chloride 0.9% 1,000 ML IV SCH ×2 (09:25→21:14)
--- NOTE | 2018-12-12 09:54 | PRG ---
DATE OF SERVICE: 12/11/2018 PULMONARY CRITICAL CARE PROGRESS NOTE This is a 45 minutes of critical care time. SUBJECTIVE: The patient remains intubated on mechanical ventilation. OBJECTIVE: VITAL SIGNS: Her temperature is 100.2 with a T-max of 101.1, pulse 120, blood pressure 150/83. A 24-hour intake 6082, output 5475. HEENT: Pupils 2 mm, sluggishly reactive. Sclerae are anicteric. Oropharynx, ET tube placed. NECK: No JVD. LUNGS: Clear anteriorly. CARDIAC: S1 and S2. Slightly tachycardic. ABDOMEN: Soft and nontender. EXTREMITIES: She withdrawals with everything except her right arm. LABORATORY DATA: White blood cell count is gone up to 33.3 from 18.1, hematocrit 38.8, platelet count 363. A pH 7.51, pCO2 of 25, pO2 of 63, that is on SIMV rate 10, tidal volume 500, PEEP 5, pressure support 12, FiO2 of 26%. Sodium 143, potassium 3.4, chloride 114, CO2 of 17, BUN 7, creatinine 1.0, glucose 159. Osmolality 312. Chest x-ray hinted the possible right infiltrate. Echocardiogram showed a hyperdynamic ejection fraction with concentric left ventricular hypertrophy. ASSESSMENT: 1. 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 2. 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 3. Severe hypertension. 4. Hyperglycemia. PLAN: 1. The patient is not weanable at this time. 2. Obtain consent for central line. 3. Convert propofol over to Versed. 4. Culture. 5. Start empiric Zosyn. 6. Add back clonidine and start amlodipine, hope to wean off the nicardipine drip soon. 7. The patient likely facing the prospect of tracheostomy and feeding tube placement as her prognosis for recovery seems quite poor. Job ID: [id number]
--- NOTE | 2018-12-12 10:00 | RAD ---
RADIOGRAPH CHEST 1 VIEW: Date: 12/12/2018. Time: 4:40 a.m. HISTORY: A 48-year-old female in respiratory failure, on mechanical ventilation. COMPARISON: 12/11/2018, 4:50 a.m. FINDINGS: Endotracheal tube remains. Cardiomegaly is unchanged. Interval worsening of opacification, now with dense consolidation, throughout the right mid and lower lung zones. Relative sparing at the right a pex. Mild pulmonary densities at left base have slightly improved. Diffuse pulmonary venous engorge ment. No pneumothorax identified. IMPRESSION: 1. Interval worsening of aeration of the right lung, now with extensive airspace densities throughou t most of the right lung. 2. Cardiomegaly. 3. Interval improvement in aeration at the left base. ARGENIS [] POS: STELLA
[2018-12-12] MEDS ORDERED: Propofol 1,000 MG/100 ML VIAL IV ONE ×3 (10:12→20:56)
--- NOTE | 2018-12-12 10:43 | PRG ---
DATE OF SERVICE: 12/12/2018 The patient is seen and examined. I agree with Francine Emanuel's evaluation. The patient is generally clinically unchanged with respect to her neurologic exam within the confines of the sedation that she is receiving. She continues to receive scheduled mannitol and her most recent measured serum osmolality is 312. We will continue with the current course of action and recheck a CT scan tomorrow. If things are stable, I anticipate we will continue with the current plan of care for several days in the hopes of some improvement in mental status. If there is no improvement as the week progresses, we will need to consider timing of progression to tracheostomy and PEG. Job ID: [id number]
[2018-12-12] MEDS: Piperacillin/Tazobactam 3.375 GM in Sodium Chloride 0.9% 100 ML IVPB SCH ×2 (11:19→19:21)
--- NOTE | 2018-12-12 13:12 | PDOC.PN ---
- Subjective Encounter Start Date: 12/12/18 Encounter Start Time: 08:20 Subjective: is on vent, sedated -: she moved all extr except right UE per staff when she was off sedation this -: -am. - Objective MAR Reviewed: Yes Vital Signs & Weight: Vital Signs (12 hours) Pulse Resp BP Pulse Ox 12/12/18 12:00 41 H 12/12/18 11:00 112 H 155/90 H 12/12/18 10:00 36 H 12/12/18 08:00 35 H 99 12/12/18 06:34 134 H 164/83 H 12/12/18 06:32 123 H 36 H 97 12/12/18 06:00 35 H 12/12/18 04:00 33 H 12/12/18 02:00 34 H 12/12/18 01:35 118 H 166/91 H Weight Admit Weight 246 lb 11.156 oz Weight 249 lb 1.957 oz Most Recent Monitor Data Heart Rate from ECG 111 NIBP 166/70 NIBP BP-Mean 102 Respiration from ECG 15 SpO2 97 I&O: 12/11/18 12/12/18 12/13/18 06:59 06:59 06:59 Intake Total 1991.2 6082 210 Output Total 1930 5475 800 Balance 61.2 607 -590 Result Diagrams: 12/12/18 04:30 12/12/18 04:30 Additional Labs: Accuchecks 12/12/18 12/12/18 12/11/18 10:41 04:32 22:16 POC Glucose 163 H 141 H 139 H 12/11/18 17:27 POC Glucose 120 H Phys Exam - Physical Examination HEENT: PERRLA, sclera anicteric Neck: no JVD, supple Respiratory: no wheezing rhonchi+ Cardiovascular: RRR, no significant murmur Gastrointestinal: soft, non-tender, positive bowel sounds Musculoskeletal: pulses present, edema present right hemiparesis upper > lower Dx/Plan (1) ICH (intracerebral hemorrhage) Code(s): I61.9 - NONTRAUMATIC INTRACEREBRAL HEMORRHAGE, UNSPECIFIED Status: Acute Qualifiers: Intracerebral hemorrhage etiology: nontraumatic Laterality: left Comment: left thalamic with extension (2) Hypertensive emergency Code(s): I16.1 - HYPERTENSIVE EMERGENCY Status: Resolved (3) Obesity Code(s): E66.9 - OBESITY, UNSPECIFIED Status: Chronic Qualifiers: Obesity classification: adult class 3 (BMI >= 40) Body mass index: BMI 40.0 -44.9 (4) Hyperglycemia Code(s): R73.9 - HYPERGLYCEMIA, UNSPECIFIED Status: Acute - Plan urine and blood cs are obtained, zosyn -: repeat cbc in am, tmax of 100 last 24hrs -: is on mannitor under nsx guidance -: on clonidine, norvasc, lopressor -: is on cardene taper, prognosis guarded * . Review of Systems - Medications/Allergies Allergies/Adverse Reactions: Allergies Allergy/AdvReac Type Severity Reaction Status Date / Time No Known Drug Allergies Allergy Verified 12/10/18 22:13 Medications: Current Medications Albuterol/Ipratropium (Duoneb) 3 ml NEB [id number] [facility] Last Admin: 12/12/18 06:32 Dose: 3 ml Amlodipine Besylate (Norvasc) 10 mg PER TUBE DAILY [facility] Clonidine (Catapres) 0.2 mg PER TUBE TID [facility] Dextrose/Water (Dextrose 50%) 25 gm SLOW IVP PRN PRN PRN Reason: Hypoglycemia Famotidine (Pepcid) 20 mg SLOW IVP Q12HR [facility] Last Admin: 12/12/18 09:24 Dose: 20 mg Glucagon (Glucagon) 1 mg IM PRN PRN PRN Reason: Hypoglycemia Hydralazine HCl (Apresoline) 10 mg SLOW IVP Q4H PRN PRN Reason: SBP>160 Last Admin: 12/10/18 23:59 Dose: 10 mg Sodium Chloride (Normal Saline 0.9%) 1,000 mls @ 80 mls/hr IV .[id number] [facility] Last Admin: 12/12/18 09:25 Dose: 1,000 mls Nicardipine HCl 50 mg/ Sodium (Chloride) 250 mls @ 0 mls/hr IVPB INF PRN; Protocol PRN Reason: SBP > 150 or DBP > 90 Last Admin: 12/12/18 11:39 Dose: 250 mls Fentanyl Citrate 2,000 mcg/ (Sodium Chloride) 100 mls @ 0 mls/hr IV INF [facility]; Protocol Stop: 01/09/19 21:37 Fentanyl Citrate (Fentanyl Bolus) 250 mls @ 0 mls/hr IVPB PRN PRN PRN Reason: Breakthrough pain/agitation Stop: 01/09/19 21:37 Potassium Chloride 40 meq/ (Sodium Chloride) 270 mls @ 135 mls/hr IVPB ASDIR PRN PRN Reason: FOR SERUM K+ 2.5 - 3.5 Potassium Chloride 40 meq/ (Device) 100 mls @ 50 mls/hr IVPB ASDIR PRN PRN Reason: FOR SERUM K+ 2.5 - 3.5 Last Admin: 12/11/18 20:03 Dose: 100 mls Magnesium Sulfate 1 gm/ Sodium (Chloride) 102 mls @ 102 mls/hr IV PRN PRN PRN Reason: MAG LEVEL 1.4 - 2.0 Magnesium Sulfate 2 gm/ Device 100 mls @ 100 mls/hr IVPB ASDIR PRN PRN Reason: MAGNESIUM < 1.4 Potassium Phosphate 9 mmol/ (Sodium Chloride) 103 mls @ 25.75 mls/hr IVPB ASDIR PRN PRN Reason: Phosphate 1.0-1.8 Potassium Phosphate 12 mmol/ (Sodium Chloride) 254 mls @ 63.5 mls/hr IV ASDIR PRN PRN Reason: Serum phosphate 0.5-0.9 Potassium Phosphate 15 mmol/ (Sodium Chloride) 255 mls @ 63.75 mls/hr IV ASDIR PRN PRN Reason: Serum Phos < 0.5 Levetiracetam 500 mg/ Device 100 mls @ 200 mls/hr IVPB BID [facility] Last Admin: 12/12/18 09:25 Dose: 100 mls Dextrose/Water (D5w) 1,000 mls @ 0 mls/hr IV .Q0M PRN PRN Reason: Hypoglycemia Acetaminophen 1,000 mg/ Device 100 mls @ 400 mls/hr IVPB Q6HR PRN PRN Reason: Fever > 101 Stop: 12/13/18 00:41 Last Admin: 12/12/18 12:51 Dose: 100 mls Midazolam HCl (Versed) 100 mls @ 0 mls/hr IVPB INF [facility]; Protocol Last Admin: 12/12/18 11:34 Dose: 100 mls Piperacillin Sod/Tazobactam (Sod 3.375 gm/ Sodium Chloride) 100 mls @ 200 mls/ hr IVPB Q6HR [facility] Last Admin: 12/12/18 11:19 Dose: 100 mls Insulin Human Lispro (Humalog) 0 units SC .MODERATE SLIDING SC PRN PRN Reason: Moderate Correctional Scale Insulin Human Lispro (Humalog) 0 units SC .BEDTIME SLIDING SC PRN PRN Reason: Bedtime Correctional Scale Labetalol HCl (Normodyne) 10 mg SLOW IVP Q4H PRN PRN Reason: SBP Greater Than 180 Last Admin: 12/12/18 12:51 Dose: 10 mg Lorazepam (Ativan) 2 mg SLOW IVP Q1H PRN PRN Reason: Breakthrough agitation Stop: 01/09/19 21:37 Magnesium Oxide (Magnesium Oxide) 400 mg PO BIDPRN PRN PRN Reason: FOR SERUM MAG 1.4 - 2.0 Magnesium Oxide (Magnesium Oxide) 800 mg PO PRN PRN PRN Reason: FOR SERUM MAG < 1.4 Mannitol (Mannitol) 25 gm IV Q6HR [facility] Last Admin: 12/12/18 12:58 Dose: 25 gm Metoprolol Tartrate (Lopressor) 25 mg PER TUBE BID [facility] Last Admin: 12/12/18 09:24 Dose: 25 mg Miscellaneous Medication (Phos-Nak) 1 pkt PO TIDPRN PRN PRN Reason: FOR PHOS LEVEL 1.0 - 1.8 Last Admin: 12/12/18 05:03 Dose: 1 pkt Miscellaneous Medication (Phos-Nak) 2 pkt PO TIDPRN PRN PRN Reason: FOR PHOS LEVEL 0.5 - 1.0 Last Admin: 12/12/18 11:20 Dose: 2 pkt Morphine Sulfate (Morphine) 2 mg SLOW IVP Q1H PRN PRN Reason: BREAKTHROUGH PAIN/Agitation Stop: 01/09/19 21:37 Discontinue Previous Narcotic Pain Medications And Benzodiazepines 1 each FS .ONE [facility] Stop: 01/09/19 21:37 Ccu Electrolyte (Replacement Protocol) 0 each FS PRN PRN PRN Reason: FOR ELECTROLYTE REPLACEMENT Ondansetron HCl (Zofran) 4 mg IVP BIDPRN PRN PRN Reason: Nausea/Vomiting Potassium Chloride (K-Dur) 40 meq PO ASDIR PRN PRN Reason: FOR SERUM K+ 2.5 - 3.5 Potassium Chloride (Klor-Con) 40 meq PER TUBE ASDIR PRN PRN Reason: FOR SERUM K+ 2.5-3.5 Last Admin: 12/12/18 05:27 Dose: 40 meq Sodium Chloride (Flush - Normal Saline) 10 ml IVF PRN PRN PRN Reason: Saline Flush
[2018-12-12] MEDS: cloNIDine 0.2 MG TAB PER TUBE SCH ×2 (14:03→21:17)
[2018-12-12] MEDS ORDERED: Amlodipine 10 MG TAB PER TUBE SCH (15:15)
[2018-12-12] MEDS: Morphine 2 MG/ML SYRINGE SLOW IVP PRN (17:09)
[2018-12-12] MEDS ORDERED: Fentanyl 100 MCG/2 ML VIAL ONE (17:25)
[2018-12-12] MEDS ORDERED: Lidocaine 1% w/Epinephrine 1:100K 20 ML VIAL ONE (17:42)
--- NOTE | 2018-12-12 19:35 | CT ---
CT BRAIN NONCONTRAST: DATE: 12-12-18 TIME: 4:50 P.M. HISTORY: 48-year-old female for follow up of intracranial hemorrhage. COMPARISON: 12-11-18 at 4:34 a.m. FINDINGS: Large intraaxial hematoma centered in the left basal ganglia, extending superiorly to the left connolly radiata and centrum semiovale, and extending medially to involve the left thalamus, has not signific antly changed in size. The degree of left to right midline shift appears similar. Again noted are the intraventricular hematomas within the lateral ventricles and third ventricle. There is mild dilation of the temporal horns, frontal horns, and anterior portion of the third ventricle. There is mass effect and vasogenic edema caused by the intraparenchymal hematoma. The degree of vasog enic edema has increased slightly since the previous CT. The degree of effacement of the ambient cist angela and effacement of cerebral peduncles, appear somewhat worse. The amount of subarachnoid hemorrhag e in the left Sylvian fissure and adjacent sulci, is no worse. IMPRESSION: 1. Large acute intraaxial hematoma centered in the left basal ganglia. 2. The vasogenic edema is slightly worse and the mass effect upon the midbrain is slightly worse. 3. Intraventricular extension of the hemorrhage, mild to moderate obstructive hydrocephalus, and left sided subarachnoid spillage of the blood, have not greatly changed. ARGENIS Ferrell POS: PAYAM
[2018-12-12] MEDS ORDERED: CEFAZOLIN 1 GM VIAL SLOW IVP SCH (22:00)
--- NOTE | 2018-12-13 00:37 | OP ---
DATE OF PROCEDURE: 12/12/2018 ATTENDING PHYSICIAN: Juan M Mcguire MD PRE-PROCEDURE DIAGNOSIS: Intracranial hemorrhage, hydrocephalus. PROCEDURE PERFORMED: Right-sided EVD placement. DESCRIPTION OF PROCEDURE: Scottie's point was identified to the right frontal scalp. It was marked, prepped with ChloraPrep and draped in sterile fashion. At this point, a 15 blade knife was used to incise the scalp down to the periosteum, making a roughly 1 cm incision. A cranial twist drill was then used to create a elisabeth hole at Scottie's point in the frontal bone. The dura was cleared using blunt dissection and then an interventricular catheter was placed at the depth of 7 cm with slow egress of serosanguineous fluid from the catheter. This was then hooked up to the buckle drain. The incision was closed using an Ethilon suture. The drain was adhered to the scalp using a 2-0 silk suture. The drain setting was set at 10 cm of water. The patient tolerated the procedure well. We will initiate her on IV Ancef at 1 g q.8h. I met and discussed with the family postprocedure. Job ID: [id number]
[2018-12-13] MEDS: Mannitol 12.5 GM/50 ML IV SCH ×4 (00:45→18:45)
[2018-12-13] MEDS: Piperacillin/Tazobactam 3.375 GM in Sodium Chloride 0.9% 100 ML IVPB SCH ×4 (01:04→18:14)
[2018-12-13 05:27] LABS: Anion Gap 13 mmol/L (10-20); BUN (Urea Nitrogen) 11 mg/dL (7.0-18.7); Calc. Creatinine Clearance 115 mL/min (70-130); Calcium 8.6 mg/dL (7.8-10.44); Carbon Dioxide 19 mmol/L (22-29); Chloride 116 mmol/L (98-107); Estimated GFR-MDRD 65; Glucose 147 mg/dL (70-105); Potassium 3.4 mmol/L (3.5-5.1); Sodium 145 mmol/L (136-145)
[2018-12-13 05:28] LABS: Band 11 % (5-11); Eosinophils 1 % (0-10); Hemoglobin 11.4 g/dL (12.0-16.0); Lymphocytes 2 % (21-51); MDiff Complete? YES; Mean Corpuscular HGB CONC 32.4 g/dL (32.0-36.0); Mean Corpuscular Hemoglobin 28.8 pg (27.0-31.0); Mean Corpuscular Volume 88.9 fL (78.0-98.0); Mean Platelet Volume 9.4 fL (7.4-10.4); Monocytes 4 % (0-10); Neutrophil 82 % (42-75); Platelet Count 312 thou/uL (130-400); Platelet Morphology Comment Appears Adequate; RBC Distribution Width 14.4 % (11.5-14.5); Red Blood Cell (RBC) Count 3.95 mill/uL (4.20-5.40); White Blood Cell (WBC) Count 32.9 thou/uL (4.8-10.8)
[2018-12-13 05:29] LABS: Phosphorus 1.6 mg/dL (2.3-4.7)
[2018-12-13] MEDS: Labetalol HCl 100 MG/20 ML VIAL SLOW IVP PRN (05:40)
[2018-12-13 07:02] LABS: Actual Bicarbonate (HCO3a) 20.3 mEq/L (22-28); Base Excess (BEa) -1.5 mEq/L (-2.0 to +3.0); CO2 Tension 26.2 mmHg (35.0-45.0); Calcium, Ionized 1.17 mmol/L (1.12-1.30); Carboxyhemoglobin (COHb) 1.2 gm% (0.0-3.0); Hemoglobin (Hb) 12.3 g/dL (12.0-16.0); Potassium - ABG Lab 3.47 mmol/L (3.70-5.30); pH, Arterial 7.51 (7.35-7.45)
[2018-12-13 07:05] LABS: O2 Tension (PaO2) 55.8 mmHg (80.0-100.0)
[2018-12-13 07:06] LABS: Puncture Site RR
--- NOTE | 2018-12-13 08:20 | RAD ---
CHEST 1 VIEW: INDICATION: Intubation. COMPARISON: Prior exam dated 12/12/2018. FINDINGS: ET tube and gastric catheter are unchanged. Cardiomegaly and pulmonary vascular congestion persist. No pleural effusion or pneumothorax evident. IMPRESSION: Stable exam. POS: BH
[2018-12-13] MEDS ORDERED: Vecuronium 10 MG VIAL IVP PRN (08:41)
[2018-12-13] MEDS: niCARdipine HCl 50 MG in Sodium Chloride 0.9% 250 ML 230 ML IVPB PRN (08:49)
--- NOTE | 2018-12-13 08:58 | PRG ---
DATE OF SERVICE: 12/13/2018 TIME SPENT: 45 minutes critical care time. SUBJECTIVE: The patient remains intubated on mechanical ventilation. She did have a ventriculostomy placed last night by the neurosurgical team. OBJECTIVE: VITAL SIGNS: Temperature 102.4, pulse 122, blood pressure 164/106. A 24-hour intake 5595, output 3590. HEENT: Pupils 2 mm, not reactive. Sclerae anicteric. Oropharynx, ET tube in place. NECK: No JVD. LUNGS: Coarse breath sounds. CARDIAC: S1, S2. Tachycardic. ABDOMEN: Soft, nontender. EXTREMITIES: No edema. NEUROLOGICAL: She will withdraw her left arm, I cannot get it to withdraw anywhere else. She does have spontaneous respirations. LABORATORY DATA: White blood cell count 32.9, hematocrit 35.1, and platelet count 312. PH of 7.51, pCO2 of 26, pO2 of 55, this is on SIMV rate 10, tidal volume 500, PEEP 5, pressure support 10, FiO2 of 35%. Sodium 145, potassium 3.4, chloride 116, CO2 of 19, BUN 11, creatinine 1.1, glucose 147, phosphorous 1.6. Micro data shows no growth to date. ASSESSMENT: 1. Status post large thalamic bleed. 2. Respiratory failure, requiring mechanical ventilation. 3. Status post ventriculostomy placement. 4. 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 5. Malignant hypertension, currently requiring nicardipine. 6. Question of seizure, now on Keppra. PLAN: 1. Central line was placed in left IJ for IV access. 2. Electrolytes will be replaced. 3. Continue enteral tube feeds. 4. Deeper sedation. 5. The patient may require intermittent paralysis to facilitate compliance. Job ID: [id number]
--- NOTE | 2018-12-13 09:10 | OP ---
DATE OF PROCEDURE: 12/13/2018 PROCEDURE PERFORMED: Central line placement. PREOPERATIVE DIAGNOSIS: Poor IV access. POSTOPERATIVE DIAGNOSIS: Successful left internal jugular central line placement. ANESTHESIA: 1% lidocaine without epinephrine. DESCRIPTION OF PROCEDURE: Informed consent was obtained from the patient's daughter. She understood the risks involved including bleeding, infection next to lung puncture, and was agreeable to proceed. The patient was placed in the Trendelenburg position. The left IJ area was first visualized with ultrasound to confirm insertion site. The area was cleansed with chlorhexidine and draped sterilely. Using modified Seldinger technique, a triple-lumen catheter was placed in the left IJ vein. Reports flushed of venous blood. Postoperative x-ray is pending. Job ID: [id number]
[2018-12-13] MEDS ORDERED: Propofol 1,000 MG/100 ML VIAL IV ONE (09:18)
[2018-12-13] MEDS: Famotidine/PF 20 mg/2ml Vial SLOW IVP SCH ×2 (09:41→21:44)
[2018-12-13] MEDS: Amlodipine 10 MG TAB PER TUBE SCH (09:43)
[2018-12-13] MEDS: cloNIDine 0.2 MG TAB PER TUBE SCH ×3 (09:43→21:44)
[2018-12-13] MEDS: Metoprolol Tartrate 25 MG TAB PER TUBE SCH ×2 (09:44→21:44)
[2018-12-13] MEDS: Sodium Chloride 0.9% 1,000 ML IV SCH (09:44)
--- NOTE | 2018-12-13 10:22 | PRG ---
DATE OF SERVICE: 12/13/2018 SUBJECTIVE: Ms. Villarreal is stable overall. She has been tachypneic and agitated when off sedation and therefore significant sedation has been required. This obliviously limits her neuro exam. Yesterday, in response to some increase in tachypnea and some decreased responsiveness as well as what I perceived to be slightly increased ventricular size on followup CT scan, we placed a right frontal ventriculostomy. This is functional and draining CSF. An ICP has been measured in the range of 12. We will plan to continue the present care. Discussed with family. Prognosis remains guarded and her condition is critical. Job ID: [id number]
--- NOTE | 2018-12-13 10:25 | PRG ---
DATE OF SERVICE: 12/13/2018 SUBJECTIVE: This is a 48-year-old female, who on 12/10/2018 suffered acute hypertensive left thalamic intracranial hemorrhage with intraventricular extension. Yesterday evening, she developed increased tachypnea and was less responsive on her neurological exam. Repeat CT head was done, which was notable for slight increase in ventricular size consistent with hydrocephalus. Therefore, a right-sided EVD was placed at the bedside. Since placement of the EVD, her ICP has been around 10 to 12. She is having approximately 10 mL of serosanguineous CSF drainage per hour. She continues to have issues with elevated temperature, tachypnea, tachycardia, and elevated blood pressure. We are being assisted by the Pulmonary and medical team with the management of this. She is receiving antipyretics, sedation, as well as on a Cardene drip. Her most recent serum osmol was 310 and she continues to receive 25 g of mannitol q.6h. On her exam this morning, she is not opening her eyes. She is not following any commands, but she does withdrawal to noxious stimulation on the left. Pupils are equal, sluggish with deviation downward. We will continue appropriate supportive care. Continue mannitol at the current rate. Continue EVD settings at 10 cm of water. She continues to be at high risk for deterioration, we will consider to monitor her closely. Job ID: [id number]
--- NOTE | 2018-12-13 10:44 | RAD ---
RADIOGRAPH CHEST 1 VIEW: Date: 12-13-18 Time: 8:35 a.m. HISTORY: 48-year-old female status post central line placement. COMPARISON: 12-13-18 at 4:52 a.m. FINDINGS: There is a new central vascular catheter descending from the left neck, presumably in the internal ju gular vein, which crosses the upper mediastinum to the right side, distal tip overlying the right atr ium. Endotracheal tube and nasogastric tube remain. Left parahilar and left lower lobe dense airspace densities, and airspace densities throughout the right lung, remain unchanged. No pneumothorax is id entified. IMPRESSION: 1. Interval placement of left internal jugular central venous catheter into the right atrium. 2. No pneumothorax. 3. No change in the bilateral infiltrates, right side more extensive than left. ARGENIS POS: STELLA
[2018-12-13] MEDS: Acetaminophen 1,000 MG in Premix Bag 1 BAG IVPB PRN ×2 (12:28→18:13)
--- NOTE | 2018-12-13 12:56 | PDOC.PN ---
- Subjective Encounter Start Date: 12/13/18 Encounter Start Time: 10:25 Subjective: on vent, sedated -: had evd placed yesterday - Objective MAR Reviewed: Yes Vital Signs & Weight: Vital Signs (12 hours) Pulse Resp BP BP BP 12/13/18 10:04 129 H 160/83 H 12/13/18 09:43 128 H 153/84 H 12/13/18 09:08 139/77 139/78 12/13/18 07:15 125 H 172/103 H 12/13/18 06:00 47 H 12/13/18 05:40 125 H 166/97 H 12/13/18 04:00 50 H 12/13/18 02:04 115 H 12/13/18 02:00 40 H Weight Admit Weight 246 lb 11.156 oz Weight 249 lb 1.957 oz Most Recent Monitor Data Heart Rate from ECG 122 NIBP 164/106 NIBP BP-Mean 125 Respiration from ECG 49 SpO2 100 I&O: 12/12/18 12/13/18 12/14/18 06:59 06:59 06:59 Intake Total 6082 5595.6 Output Total 5475 3590 Balance 607 2005.6 Result Diagrams: 12/13/18 05:02 12/13/18 05:02 Additional Labs: Accuchecks 12/13/18 12/13/18 12/12/18 10:42 04:56 19:27 POC Glucose 103 133 H 110 12/12/18 15:37 POC Glucose 134 H Phys Exam - Physical Examination HEENT: PERRLA, sclera anicteric Neck: no JVD, supple Respiratory: no wheezing, no rales Cardiovascular: RRR, no significant murmur Gastrointestinal: soft, no distention, positive bowel sounds Musculoskeletal: pulses present, edema present right hemiparesis, upper > lower Dx/Plan (1) ICH (intracerebral hemorrhage) Code(s): I61.9 - NONTRAUMATIC INTRACEREBRAL HEMORRHAGE, UNSPECIFIED Status: Acute Qualifiers: Intracerebral hemorrhage etiology: nontraumatic Laterality: left Comment: left thalamic with extension (2) Hypertensive emergency Code(s): I16.1 - HYPERTENSIVE EMERGENCY Status: Acute (3) Obesity Code(s): E66.9 - OBESITY, UNSPECIFIED Status: Chronic Qualifiers: Obesity classification: adult class 3 (BMI >= 40) Body mass index: BMI 40.0 -44.9 (4) Hyperglycemia Code(s): R73.9 - HYPERGLYCEMIA, UNSPECIFIED Status: Acute (5) Acute encephalopathy Code(s): G93.40 - ENCEPHALOPATHY, UNSPECIFIED Status: Acute - Plan is on zosyn, iv hydration, also getting mannitol based on osm -: cardene drip, norvasc, clonidine, lopressor -: gets agitated when attempts at weaning or decreasing sedation -: echo shows ef of 70%, mild lvh -: prognosis guarded * . Review of Systems - Medications/Allergies Allergies/Adverse Reactions: Allergies Allergy/AdvReac Type Severity Reaction Status Date / Time No Known Drug Allergies Allergy Verified 12/10/18 22:13 Medications: Current Medications Albuterol/Ipratropium (Duoneb) 3 ml NEB [id number] [facility] Last Admin: 12/13/18 07:14 Dose: 3 ml Amlodipine Besylate (Norvasc) 10 mg PER TUBE DAILY [facility] Last Admin: 12/13/18 09:43 Dose: 10 mg Clonidine (Catapres) 0.2 mg PER TUBE TID [facility] Last Admin: 12/13/18 09:43 Dose: 0.2 mg Dextrose/Water (Dextrose 50%) 25 gm SLOW IVP PRN PRN PRN Reason: Hypoglycemia Famotidine (Pepcid) 20 mg SLOW IVP Q12HR [facility] Last Admin: 12/13/18 09:41 Dose: 20 mg Glucagon (Glucagon) 1 mg IM PRN PRN PRN Reason: Hypoglycemia Hydralazine HCl (Apresoline) 10 mg SLOW IVP Q4H PRN PRN Reason: SBP>160 Last Admin: 12/10/18 23:59 Dose: 10 mg Sodium Chloride (Normal Saline 0.9%) 1,000 mls @ 80 mls/hr IV .[id number] [facility] Last Admin: 12/13/18 09:44 Dose: 1,000 mls Nicardipine HCl 50 mg/ Sodium (Chloride) 250 mls @ 0 mls/hr IVPB INF PRN; Protocol PRN Reason: SBP > 150 or DBP > 90 Last Admin: 12/13/18 08:49 Dose: 250 mls Fentanyl Citrate 2,000 mcg/ (Sodium Chloride) 100 mls @ 0 mls/hr IV INF SASCHA; Protocol Stop: 01/09/19 21:37 Fentanyl Citrate (Fentanyl Bolus) 250 mls @ 0 mls/hr IVPB PRN PRN PRN Reason: Breakthrough pain/agitation Stop: 01/09/19 21:37 Potassium Chloride 40 meq/ (Sodium Chloride) 270 mls @ 135 mls/hr IVPB ASDIR PRN PRN Reason: FOR SERUM K+ 2.5 - 3.5 Potassium Chloride 40 meq/ (Device) 100 mls @ 50 mls/hr IVPB ASDIR PRN PRN Reason: FOR SERUM K+ 2.5 - 3.5 Last Admin: 12/11/18 20:03 Dose: 100 mls Magnesium Sulfate 1 gm/ Sodium (Chloride) 102 mls @ 102 mls/hr IV PRN PRN PRN Reason: MAG LEVEL 1.4 - 2.0 Magnesium Sulfate 2 gm/ Device 100 mls @ 100 mls/hr IVPB ASDIR PRN PRN Reason: MAGNESIUM < 1.4 Potassium Phosphate 9 mmol/ (Sodium Chloride) 103 mls @ 25.75 mls/hr IVPB ASDIR PRN PRN Reason: Phosphate 1.0-1.8 Potassium Phosphate 12 mmol/ (Sodium Chloride) 254 mls @ 63.5 mls/hr IV ASDIR PRN PRN Reason: Serum phosphate 0.5-0.9 Potassium Phosphate 15 mmol/ (Sodium Chloride) 255 mls @ 63.75 mls/hr IV ASDIR PRN PRN Reason: Serum Phos < 0.5 Levetiracetam 500 mg/ Device 100 mls @ 200 mls/hr IVPB BID [facility] Last Admin: 12/13/18 10:42 Dose: 100 mls Dextrose/Water (D5w) 1,000 mls @ 0 mls/hr IV .Q0M PRN PRN Reason: Hypoglycemia Midazolam HCl (Versed) 100 mls @ 0 mls/hr IVPB INF SASCHA; Protocol Last Admin: 12/12/18 11:34 Dose: 100 mls Piperacillin Sod/Tazobactam (Sod 3.375 gm/ Sodium Chloride) 100 mls @ 200 mls/ hr IVPB Q6HR [facility] Last Admin: 12/13/18 12:29 Dose: 100 mls Cefazolin Sodium/Dextrose (Ancef) 50 mls @ 100 mls/hr IVPB Q8HR [facility] Last Admin: 12/13/18 05:36 Dose: 50 mls Acetaminophen 1,000 mg/ Device 100 mls @ 400 mls/hr IVPB Q6H PRN PRN Reason: Fever/Mild Pain Stop: 12/14/18 12:09 Last Admin: 12/13/18 12:28 Dose: 100 mls Insulin Human Lispro (Humalog) 0 units SC .MODERATE SLIDING SC PRN PRN Reason: Moderate Correctional Scale Insulin Human Lispro (Humalog) 0 units SC .BEDTIME SLIDING SC PRN PRN Reason: Bedtime Correctional Scale Labetalol HCl (Normodyne) 10 mg SLOW IVP Q4H PRN PRN Reason: SBP Greater Than 180 Last Admin: 12/13/18 05:40 Dose: 10 mg Lorazepam (Ativan) 2 mg SLOW IVP Q1H PRN PRN Reason: Breakthrough agitation Stop: 01/09/19 21:37 Magnesium Oxide (Magnesium Oxide) 400 mg PO BIDPRN PRN PRN Reason: FOR SERUM MAG 1.4 - 2.0 Magnesium Oxide (Magnesium Oxide) 800 mg PO PRN PRN PRN Reason: FOR SERUM MAG < 1.4 Mannitol (Mannitol) 25 gm IV Q6HR [facility] Last Admin: 12/13/18 08:50 Dose: 25 gm Metoprolol Tartrate (Lopressor) 25 mg PER TUBE BID [facility] Last Admin: 12/13/18 09:44 Dose: 25 mg Miscellaneous Medication (Phos-Nak) 1 pkt PO TIDPRN PRN PRN Reason: FOR PHOS LEVEL 1.0 - 1.8 Last Admin: 12/13/18 05:41 Dose: 1 pkt Miscellaneous Medication (Phos-Nak) 2 pkt PO TIDPRN PRN PRN Reason: FOR PHOS LEVEL 0.5 - 1.0 Last Admin: 12/12/18 11:20 Dose: 2 pkt Morphine Sulfate (Morphine) 2 mg SLOW IVP Q1H PRN PRN Reason: BREAKTHROUGH PAIN/Agitation Stop: 01/09/19 21:37 Last Admin: 12/12/18 17:09 Dose: 2 mg Discontinue Previous Narcotic Pain Medications And Benzodiazepines 1 each FS .ONE SASCHA Stop: 01/09/19 21:37 Ccu Electrolyte (Replacement Protocol) 0 each FS PRN PRN PRN Reason: FOR ELECTROLYTE REPLACEMENT Ondansetron HCl (Zofran) 4 mg IVP BIDPRN PRN PRN Reason: Nausea/Vomiting Potassium Chloride (K-Dur) 40 meq PO ASDIR PRN PRN Reason: FOR SERUM K+ 2.5 - 3.5 Potassium Chloride (Klor-Con) 40 meq PER TUBE ASDIR PRN PRN Reason: FOR SERUM K+ 2.5-3.5 Last Admin: 12/13/18 09:44 Dose: 40 meq Sodium Chloride (Flush - Normal Saline) 10 ml IVF PRN PRN PRN Reason: Saline Flush Vecuronium [place] (Norcuron) 10 mg IVP Q30MIN PRN PRN Reason: Agitation
[2018-12-14] MEDS: Piperacillin/Tazobactam 3.375 GM in Sodium Chloride 0.9% 100 ML IVPB SCH ×4 (00:25→18:39)
[2018-12-14] MEDS: Mannitol 12.5 GM/50 ML IV SCH ×5 (00:27→20:02)
[2018-12-14 04:16] LABS: #Eosinphils 0.4 thou/uL (0.0-0.7); #Lymphocytes 1.2 thou/uL (1.20-3.40); #Monocytes 1.5 thou/uL (0.11-0.59); #Neutrophils 18.3 thou/uL (1.40-6.50); %Basophils 0.1 % (0.0-1.0); %Eosinophils 1.7 % (0.0-10.0); %Lymphocytes 5.8 % (21.0-51.0); %Monocytes 7.2 % (0.0-10.0); %Neutrophils 85.2 % (42.0-75.0); Hemoglobin 10.8 g/dL (12.0-16.0); Mean Corpuscular Hemoglobin 27.7 pg (27.0-31.0); Mean Corpuscular Volume 89.4 fL (78.0-98.0); Mean Platelet Volume 9.4 fL (7.4-10.4); Platelet Count 289 thou/uL (130-400); RBC Distribution Width 14.4 % (11.5-14.5); Red Blood Cell (RBC) Count 3.89 mill/uL (4.20-5.40); White Blood Cell (WBC) Count 21.5 thou/uL (4.8-10.8)
[2018-12-14 04:27] LABS: Anion Gap 13 mmol/L (10-20); BUN (Urea Nitrogen) 11 mg/dL (7.0-18.7); Calc. Creatinine Clearance 14 mL/min (70-130); Calcium 8.8 mg/dL (7.8-10.44); Carbon Dioxide 21 mmol/L (22-29); Chloride 116 mmol/L (98-107); Estimated GFR-MDRD 75; Glucose 133 mg/dL (70-105); Potassium 3.5 mmol/L (3.5-5.1); Sodium 146 mmol/L (136-145)
[2018-12-14 04:29] LABS: Phosphorus 2.6 mg/dL (2.3-4.7)
[2018-12-14] MEDS ORDERED: Propofol 1,000 MG/100 ML VIAL IV PRN (05:06)
[2018-12-14] MEDS ORDERED: Propofol BOLUS 1,000 MG/100 ML VIAL IV PRN (05:06)
[2018-12-14] MEDS: Labetalol HCl 100 MG/20 ML VIAL SLOW IVP PRN (05:33)
[2018-12-14] MEDS: Acetaminophen 1,000 MG in Premix Bag 1 BAG IVPB PRN (06:22)
[2018-12-14] MEDS: Sodium Chloride 0.9% 1,000 ML IV SCH (06:23)
[2018-12-14] MEDS: niCARdipine HCl 50 MG in Sodium Chloride 0.9% 250 ML 230 ML IVPB PRN ×3 (06:35→19:25)
[2018-12-14 06:55] LABS: pH, Arterial 7.46 (7.35-7.45)
[2018-12-14 06:56] LABS: ALV-art Gradient 167.725 (0-20); Actual Bicarbonate (HCO3a) 20.5 mEq/L (22-28); Base Excess (BEa) -2.5 mEq/L (-2.0 to +3.0); CO2 Tension 29.5 mmHg (35.0-45.0); Calcium, Ionized 1.16 mmol/L (1.12-1.30); Carboxyhemoglobin (COHb) 0.8 gm% (0.0-3.0); Hemoglobin (Hb) 10.6 g/dL (12.0-16.0); O2 Tension (PaO2) 78.6 mmHg (80.0-100.0); Potassium - ABG Lab 3.54 mmol/L (3.70-5.30); Puncture Site RR
--- NOTE | 2018-12-14 08:09 | PRG ---
DATE OF SERVICE: 12/14/2018 TIME SPENT: 35 minutes of critical care time. SUBJECTIVE: The patient remains intubated on mechanical ventilation. There have been no acute changes overnight. OBJECTIVE: VITAL SIGNS: Temperature 99.4, T-max of 101.5, pulse 103, blood pressure 183/117. Intake for 24 hours 4920, output 4262. Weight 258 pounds, which is approximately 13 pounds over her admission weight. HEENT: Pupils are reactive. She has a gag reflex. NECK: No JVD. LUNGS: Coarse breath sounds bilaterally. CARDIAC: S1 and S2, slightly tachycardic. ABDOMEN: Soft, nontender. EXTREMITIES: Edematous. LABORATORY DATA: PH of 7.46, pCO2 of 29, pO2 of 78, that is on SIMV rate 10, tidal volume of 500, PEEP 8, pressure support 10, and FiO2 of 40%. White blood cell count 21.5, hemoglobin 10.8, hematocrit 34.7, and platelet count 289. Sodium 146, potassium 3.5, chloride 116, CO2 of 21, BUN 11, creatinine 0.8, and glucose 133. ASSESSMENT: 1. Acute respiratory failure, requiring mechanical ventilation. 2. Bilateral infiltrates on chest x-ray either aspiration pneumonia or neurogenic pulmonary edema. 3. Status post large thalamic bleed. 4. Fever. 5. Malignant hypertension. 6. Question of seizure. PLAN: 1. The patient will continue supportive care with tube feeds. We will try to limit her IV fluid intake since she is grossly fluid overloaded. 2. Potassium will be replaced. 3. Continue IV antibiotic therapy with Zosyn and cefazolin. 4. The patient will probably need tracheostomy and PEG tube placement. Job ID: [id number]
--- NOTE | 2018-12-14 08:37 | RAD ---
PORTABLE CHEST: History: Respiratory distress. Comparison: 12-13-18 FINDINGS: Endotracheal and NG tubes are in satisfactory position. Left central line is unchanged. Interstitial alveolar lung changes are stable. IMPRESSION: Stable exam. POS: STELLA
[2018-12-14] MEDS: Potassium Chloride 20 MEQ TAB PO PRN (09:24)
[2018-12-14] MEDS: cloNIDine 0.2 MG TAB PER TUBE SCH ×3 (09:24→20:03)
[2018-12-14] MEDS: Metoprolol Tartrate 25 MG TAB PER TUBE SCH ×2 (09:24→20:03)
[2018-12-14] MEDS: Amlodipine 10 MG TAB PER TUBE SCH (09:25)
[2018-12-14] MEDS: Famotidine/PF 20 mg/2ml Vial SLOW IVP SCH ×2 (09:25→20:03)
--- NOTE | 2018-12-14 10:26 | PRG ---
DATE OF SERVICE: 12/14/2018 SUBJECTIVE: Ms. Villarreal eye opens more briskly today to stimulus. She has a rightward gaze deviation. She does not follow commands or track the examiner with her eyes. She withdraws left arm purposefully and has sluggish withdrawal with the right arm. We will raise the EVD level to 15 cm of water. We will check CT scan tomorrow. Job ID: [id number]
--- NOTE | 2018-12-14 11:48 | PDOC.PN ---
- Subjective Encounter Start Date: 12/14/18 Encounter Start Time: 08:45 Subjective: on vent, sedated -: mother at bedside - Objective MAR Reviewed: Yes Vital Signs & Weight: Vital Signs (12 hours) Temp Pulse Resp BP Pulse Ox 12/14/18 10:00 28 H 12/14/18 09:53 118 H 164/94 H 12/14/18 09:25 112 H 181/105 H 12/14/18 09:24 181/105 H 12/14/18 08:00 36 H 12/14/18 07:00 99.1 F 12/14/18 06:39 98 172/124 H 12/14/18 06:00 34 H 12/14/18 05:33 103 H 183/119 H 12/14/18 04:00 29 H 12/14/18 03:00 99.4 F 12/14/18 02:11 93 30 H 100 12/14/18 02:00 31 H 12/14/18 00:00 28 H 12/13/18 23:55 85 28 H 100 Weight Admit Weight 246 lb 11.156 oz Weight 258 lb 2.581 oz Most Recent Monitor Data Heart Rate from ECG 101 NIBP 157/89 NIBP BP-Mean 111 Respiration from ECG 20 SpO2 100 I&O: 12/13/18 12/14/18 12/15/18 06:59 06:59 06:59 Intake Total 5595.6 4920.7 Output Total 3590 4262 1230 Balance 2005.6 658.7 -1230 Result Diagrams: 12/14/18 04:03 12/14/18 04:03 Additional Labs: Accuchecks 12/13/18 12/13/18 23:22 16:59 POC Glucose 136 H 133 H Phys Exam - Physical Examination HEENT: moist MMs, sclera anicteric Neck: no JVD, supple Respiratory: no wheezing, no rales rhonchi+ Cardiovascular: RRR, no significant murmur Gastrointestinal: soft, non-tender, positive bowel sounds Musculoskeletal: no edema, pulses present right hemiparesis Dx/Plan (1) ICH (intracerebral hemorrhage) Code(s): I61.9 - NONTRAUMATIC INTRACEREBRAL HEMORRHAGE, UNSPECIFIED Status: Acute Qualifiers: Intracerebral hemorrhage etiology: nontraumatic Laterality: left Comment: left thalamic with extension, edema, s/p EVD (2) Hypertensive emergency Code(s): I16.1 - HYPERTENSIVE EMERGENCY Status: Acute (3) Obesity Code(s): E66.9 - OBESITY, UNSPECIFIED Status: Chronic Qualifiers: Obesity classification: adult class 3 (BMI >= 40) Body mass index: BMI 40.0 -44.9 (4) Hyperglycemia Code(s): R73.9 - HYPERGLYCEMIA, UNSPECIFIED Status: Acute (5) Acute encephalopathy Code(s): G93.40 - ENCEPHALOPATHY, UNSPECIFIED Status: Acute - Plan is on zosyn, ancef -: clonidine, norvasx, lopressor and cardene iv -: mannitol per nsx adv -: prognosis guarded -: still encephalopathic off sedation per staff * . Review of Systems - Medications/Allergies Allergies/Adverse Reactions: Allergies Allergy/AdvReac Type Severity Reaction Status Date / Time No Known Drug Allergies Allergy Verified 12/10/18 22:13 Medications: Current Medications Acetaminophen (Tylenol Elixir) 1,000 mg PER TUBE Q6H PRN PRN Reason: Headache/Fever or Pain Albuterol/Ipratropium (Duoneb) 3 ml NEB [id number] [facility] Last Admin: 12/14/18 06:39 Dose: 3 ml Amlodipine Besylate (Norvasc) 10 mg PER TUBE DAILY [facility] Last Admin: 12/14/18 09:25 Dose: 10 mg Clonidine (Catapres) 0.2 mg PER TUBE TID [facility] Last Admin: 12/14/18 09:24 Dose: 0.2 mg Dextrose/Water (Dextrose 50%) 25 gm SLOW IVP PRN PRN PRN Reason: Hypoglycemia Famotidine (Pepcid) 20 mg SLOW IVP Q12HR [facility] Last Admin: 12/14/18 09:25 Dose: 20 mg Glucagon (Glucagon) 1 mg IM PRN PRN PRN Reason: Hypoglycemia Hydralazine HCl (Apresoline) 10 mg SLOW IVP Q4H PRN PRN Reason: SBP>160 Last Admin: 12/10/18 23:59 Dose: 10 mg Nicardipine HCl 50 mg/ Sodium (Chloride) 250 mls @ 0 mls/hr IVPB INF PRN; Protocol PRN Reason: SBP > 150 or DBP > 90 Last Admin: 12/14/18 06:35 Dose: 250 mls Fentanyl Citrate 2,000 mcg/ (Sodium Chloride) 100 mls @ 0 mls/hr IV INF SASCHA; Protocol Stop: 01/09/19 21:37 Fentanyl Citrate (Fentanyl Bolus) 250 mls @ 0 mls/hr IVPB PRN PRN PRN Reason: Breakthrough pain/agitation Stop: 01/09/19 21:37 Potassium Chloride 40 meq/ (Sodium Chloride) 270 mls @ 135 mls/hr IVPB ASDIR PRN PRN Reason: FOR SERUM K+ 2.5 - 3.5 Potassium Chloride 40 meq/ (Device) 100 mls @ 50 mls/hr IVPB ASDIR PRN PRN Reason: FOR SERUM K+ 2.5 - 3.5 Last Admin: 12/11/18 20:03 Dose: 100 mls Magnesium Sulfate 1 gm/ Sodium (Chloride) 102 mls @ 102 mls/hr IV PRN PRN PRN Reason: MAG LEVEL 1.4 - 2.0 Magnesium Sulfate 2 gm/ Device 100 mls @ 100 mls/hr IVPB ASDIR PRN PRN Reason: MAGNESIUM < 1.4 Potassium Phosphate 9 mmol/ (Sodium Chloride) 103 mls @ 25.75 mls/hr IVPB ASDIR PRN PRN Reason: Phosphate 1.0-1.8 Potassium Phosphate 12 mmol/ (Sodium Chloride) 254 mls @ 63.5 mls/hr IV ASDIR PRN PRN Reason: Serum phosphate 0.5-0.9 Potassium Phosphate 15 mmol/ (Sodium Chloride) 255 mls @ 63.75 mls/hr IV ASDIR PRN PRN Reason: Serum Phos < 0.5 Levetiracetam 500 mg/ Device 100 mls @ 200 mls/hr IVPB BID [facility] Last Admin: 12/14/18 09:25 Dose: 100 mls Dextrose/Water (D5w) 1,000 mls @ 0 mls/hr IV .Q0M PRN PRN Reason: Hypoglycemia Midazolam HCl (Versed) 100 mls @ 0 mls/hr IVPB INF SASCHA; Protocol Last Admin: 12/13/18 13:18 Dose: 100 mls Piperacillin Sod/Tazobactam (Sod 3.375 gm/ Sodium Chloride) 100 mls @ 200 mls/ hr IVPB Q6HR [facility] Last Admin: 12/14/18 06:22 Dose: 100 mls Cefazolin Sodium/Dextrose (Ancef) 50 mls @ 100 mls/hr IVPB Q8HR [facility] Last Admin: 12/14/18 06:22 Dose: 50 mls Insulin Human Lispro (Humalog) 0 units SC .MODERATE SLIDING SC PRN PRN Reason: Moderate Correctional Scale Insulin Human Lispro (Humalog) 0 units SC .BEDTIME SLIDING SC PRN PRN Reason: Bedtime Correctional Scale Labetalol HCl (Normodyne) 10 mg SLOW IVP Q4H PRN PRN Reason: SBP Greater Than 180 Last Admin: 12/14/18 05:33 Dose: 10 mg Lorazepam (Ativan) 2 mg SLOW IVP Q1H PRN PRN Reason: Breakthrough agitation Stop: 01/09/19 21:37 Magnesium Oxide (Magnesium Oxide) 400 mg PO BIDPRN PRN PRN Reason: FOR SERUM MAG 1.4 - 2.0 Magnesium Oxide (Magnesium Oxide) 800 mg PO PRN PRN PRN Reason: FOR SERUM MAG < 1.4 Mannitol (Mannitol) 25 gm IV Q6HR [facility] Last Admin: 12/14/18 06:40 Dose: 25 gm Metoprolol Tartrate (Lopressor) 25 mg PER TUBE BID [facility] Last Admin: 12/14/18 09:24 Dose: 25 mg Miscellaneous Medication (Phos-Nak) 1 pkt PO TIDPRN PRN PRN Reason: FOR PHOS LEVEL 1.0 - 1.8 Last Admin: 12/13/18 21:51 Dose: 1 pkt Miscellaneous Medication (Phos-Nak) 2 pkt PO TIDPRN PRN PRN Reason: FOR PHOS LEVEL 0.5 - 1.0 Last Admin: 12/12/18 11:20 Dose: 2 pkt Morphine Sulfate (Morphine) 2 mg SLOW IVP Q1H PRN PRN Reason: BREAKTHROUGH PAIN/Agitation Stop: 01/09/19 21:37 Last Admin: 12/12/18 17:09 Dose: 2 mg Discontinue Previous Narcotic Pain Medications And Benzodiazepines 1 each FS .ONE [facility] Stop: 01/09/19 21:37 Ccu Electrolyte (Replacement Protocol) 0 each FS PRN PRN PRN Reason: FOR ELECTROLYTE REPLACEMENT Ondansetron HCl (Zofran) 4 mg IVP BIDPRN PRN PRN Reason: Nausea/Vomiting Potassium Chloride (K-Dur) 40 meq PO ASDIR PRN PRN Reason: FOR SERUM K+ 2.5 - 3.5 Last Admin: 12/14/18 09:24 Dose: 40 meq Potassium Chloride (Klor-Con) 40 meq PER TUBE ASDIR PRN PRN Reason: FOR SERUM K+ 2.5-3.5 Last Admin: 12/13/18 09:44 Dose: 40 meq Sodium Chloride (Flush - Normal Saline) 10 ml IVF PRN PRN PRN Reason: Saline Flush Vecuronium [place] (Norcuron) 10 mg IVP Q30MIN PRN PRN Reason: Agitation
[2018-12-14] MEDS ORDERED: MANNITOL 20% IVPB SCH (12:00)
[2018-12-14] MEDS ORDERED: Labetalol HCl 100 MG/20 ML VIAL ONE (12:30)
[2018-12-14] MEDS: Morphine 2 MG/ML SYRINGE SLOW IVP PRN (16:55)
[2018-12-15] MEDS: Piperacillin/Tazobactam 3.375 GM in Sodium Chloride 0.9% 100 ML IVPB SCH ×4 (00:17→18:28)
[2018-12-15] MEDS: Mannitol 12.5 GM/50 ML IV SCH ×2 (01:38→06:00)
[2018-12-15] MEDS: niCARdipine HCl 50 MG in Sodium Chloride 0.9% 250 ML 230 ML IVPB PRN ×2 (03:03→13:02)
[2018-12-15 05:33] LABS: #Eosinphils 0.3 thou/uL (0.0-0.7); #Lymphocytes 1.6 thou/uL (1.20-3.40); #Monocytes 1.9 thou/uL (0.11-0.59); #Neutrophils 13.7 thou/uL (1.40-6.50); %Basophils 0.3 % (0.0-1.0); %Eosinophils 1.8 % (0.0-10.0); %Monocytes 10.6 % (0.0-10.0); %Neutrophils 78.4 % (42.0-75.0); Mean Corpuscular HGB CONC 31.3 g/dL (32.0-36.0); Mean Corpuscular Hemoglobin 27.8 pg (27.0-31.0); Mean Corpuscular Volume 88.6 fL (78.0-98.0); Mean Platelet Volume 9.1 fL (7.4-10.4); Platelet Count 319 thou/uL (130-400); RBC Distribution Width 14.3 % (11.5-14.5); Red Blood Cell (RBC) Count 3.98 mill/uL (4.20-5.40); White Blood Cell (WBC) Count 17.5 thou/uL (4.8-10.8)
[2018-12-15 06:01] LABS: Anion Gap 15 mmol/L (10-20); BUN (Urea Nitrogen) 14 mg/dL (7.0-18.7); Calc. Creatinine Clearance 148 mL/min (70-130); Calcium 9.3 mg/dL (7.8-10.44); Carbon Dioxide 21 mmol/L (22-29); Chloride 113 mmol/L (98-107); Estimated GFR-MDRD 86; Glucose 125 mg/dL (70-105); Potassium 3.6 mmol/L (3.5-5.1); Sodium 145 mmol/L (136-145)
[2018-12-15 06:44] LABS: Actual Bicarbonate (HCO3a) 23.2 mEq/L (22-28); Base Excess (BEa) 0.9 mEq/L (-2.0 to +3.0); CO2 Tension 29.5 mmHg (35.0-45.0); Calcium, Ionized 1.17 mmol/L (1.12-1.30); Carboxyhemoglobin (COHb) 1.1 gm% (0.0-3.0); Hemoglobin (Hb) 11.1 g/dL (12.0-16.0); Potassium - ABG Lab 3.41 mmol/L (3.70-5.30); pH, Arterial 7.51 (7.35-7.45)
[2018-12-15 06:45] LABS: ALV-art Gradient 187.125 (0-20); O2 Tension (PaO2) 59.2 mmHg (80.0-100.0); Puncture Site RRA
--- NOTE | 2018-12-15 07:44 | RAD ---
CHEST 1 VIEW: Date: 12/15/18 INDICATION: Intubation. COMPARISON: Prior exam dated 12/14/18. IMPRESSION: There is improvement of central edema pattern. Cardiomegaly persists. ET tube and gastric catheter ar e unchanged. Left IJ central venous catheter is similar appearing. No pneumothorax is evident. POS: BH
--- NOTE | 2018-12-15 08:41 | PRG ---
DATE OF SERVICE: 12/15/2018 TIME SPENT: 35 minutes critical care time. SUBJECTIVE: The patient remains intubated on mechanical ventilation. There has been no change in neurologic status. Her head CT looks about the same. OBJECTIVE: VITAL SIGNS: Today, her temperature is 99.8, pulse 118, blood pressure 154/88. She continues to require nicardipine drip. She is also sedated on Versed. A 24-hour intake 3687, output 9764. HEENT: Pupils are 3 mm, unreactive. Her eyes are deviated to the left. She has a gag reflex intact. NECK: No JVD. LUNGS: Clear anteriorly. CARDIAC: S1, S2. Regular. ABDOMEN: Soft, nontender. EXTREMITIES: No edema. LABORATORY DATA: White blood cell count 17.5, hematocrit 35.3, and platelet count 319. PH 7.51, pCO2 of 29, PO2 of 59 on SIMV rate 10, tidal volume of 500, PEEP 8, pressure support 10, FiO2 40%. Sodium 145, potassium 3.6, chloride 113, CO2 of 21, BUN 14, creatinine 0.8, glucose 125. ASSESSMENT: 1. Status post thalamic bleed with continued gross neurologic deficit. 2. Acute respiratory failure, requiring mechanical ventilation. 3. Improved bilateral infiltrates on chest x-ray today indicating this is probably neurogenic edema. 4. Fever, which is probably central in origin. 5. Malignant hypertension. 6. Question seizure. PLAN: 1. I consulted Dr. Garrick Monroy, for tracheostomy and PEG tube placement at his leisure. 2. Discussed case with patient's and family. 3. Continue IV antibiotics. 4. Not weanable at this time. Job ID: [id number]
--- NOTE | 2018-12-15 08:46 | CT ---
CT OF THE BRAIN WITHOUT CONTRAST: INDICATION: Followup intracranial hemorrhage status post ventriculostomy drain placement. COMPARISON: Prior exam dated 12/12/2018 at 4:50 p.m. FINDINGS: Since the comparison examination, there has been interval placement of a right frontal ventriculostom y catheter projecting to the region of the third ventricle. There is improvement in the degree of hy drocephalus seen from the prior exam. The intraparenchymal hemorrhage centered within the left basal ganglia is stable in size measuring 4.8 cm in its greatest axial dimension. Surrounding vasogenic e jacob is stable. Sulcal effacement persists. Mild mass effect on the left aspect of the mid brain is stable. Mild leftward midline shift of 1.5 mm is relatively stable. Intraventricular hemorrhage is seen within the left sylvian fissure and adjacent sulci appears stable. Mastoid air cells are clear . Mild secretions are seen within the posterior aspect of the nasopharynx. IMPRESSION: 1. Interval placement of a right frontal ventriculostomy catheter projecting in the third ventricle with improvement in the degree of hydrocephalus seen from the comparison study dated 12/12/2018 at 4:5 0 p.m. 2. The left basal ganglia intraparenchymal hematoma is stable in size with stable surrounding vasoge kike edema. 3. Sulcal effacement and subtle [id number] midline shift is stable. Mild uncal mass effect on th e left aspect of the midbrain being similar-appearing. Crowding of the basilar cisterns is stable. POS: BH
[2018-12-15] MEDS: Amlodipine 10 MG TAB PER TUBE SCH ×2 (09:00→12:26)
[2018-12-15] MEDS: Famotidine/PF 20 mg/2ml Vial SLOW IVP SCH ×3 (09:00→21:36)
[2018-12-15] MEDS: cloNIDine 0.2 MG TAB PER TUBE SCH ×4 (09:00→21:35)
[2018-12-15] MEDS: Metoprolol Tartrate 25 MG TAB PER TUBE SCH ×3 (09:00→21:35)
[2018-12-15] MEDS ORDERED: Midazolam HCl 2 mg/2 ml Vial ONE (09:11)
[2018-12-15] MEDS ORDERED: Vecuronium 10 MG VIAL ONE ×2 (09:11→09:41)
[2018-12-15] MEDS ORDERED: Fentanyl 100 MCG/2 ML VIAL ONE ×3 (09:11→10:07)
[2018-12-15] MEDS ORDERED: Lidocaine 1% w/Epinephrine 1:100K 20 ML VIAL ONE (09:14)
[2018-12-15] MEDS ORDERED: Midazolam HCl 2 mg/2 ml Vial IVP SCH (09:30)
[2018-12-15] MEDS ORDERED: Vecuronium 10 MG VIAL IV SCH (09:30)
[2018-12-15] MEDS ORDERED: Fentanyl 100 MCG/2 ML VIAL SLOW IVP SCH (09:30)
--- NOTE | 2018-12-15 10:15 | PRG ---
DATE OF SERVICE: 12/15/2018 SUBJECTIVE: Ms. Villarreal is clinically stable. Her ICPs have been in the 10 to 12 range and the EVD is working fine. CT scan is generally satisfactory. We will stop scheduling mannitol today and continue with ventricular drainage, although we have raised the ventriculostomy to a setting of 15 cm of water. I think it would be reasonable to proceed with tracheostomy and PEG this week and discuss this with Dr. Cameron, who is in agreement. I discussed this with the patient's mother and sister, who were also in agreement. Job ID: [id number]
--- NOTE | 2018-12-15 11:19 | PDOC.PN ---
- Subjective Encounter Start Date: 12/15/18 Encounter Start Time: 11:15 Subjective: on vent, mild sedation -: not awake - Objective MAR Reviewed: Yes Vital Signs & Weight: Vital Signs (12 hours) Temp Pulse Resp BP 12/15/18 11:11 120 H 159/97 H 12/15/18 09:07 116 H 12/15/18 08:00 28 H 12/15/18 07:35 117 H 161/95 H 12/15/18 07:00 99.8 F H 12/15/18 06:00 30 H 12/15/18 04:00 99.9 F H 32 H 12/15/18 02:17 105 H 160/90 H 12/15/18 02:00 31 H 12/15/18 00:08 101 H 152/93 H 12/15/18 00:00 100.5 F H 34 H Weight Admit Weight 246 lb 11.156 oz Weight 252 lb 6.868 oz Most Recent Monitor Data Heart Rate from ECG 119 NIBP 140/85 NIBP BP-Mean 103 Respiration from ECG 30 SpO2 100 I&O: 12/14/18 12/15/18 12/16/18 06:59 06:59 06:59 Intake Total 4920.7 3687 Output Total 4262 9764 315 Balance 658.7 -6077 -315 Result Diagrams: 12/15/18 05:29 12/15/18 05:29 Additional Labs: Accuchecks 12/15/18 12/14/18 12/14/18 05:24 23:49 18:34 POC Glucose 113 H 132 H 140 H 12/14/18 11:53 POC Glucose 117 H Phys Exam - Physical Examination HEENT: moist MMs, sclera anicteric Neck: no JVD, supple Respiratory: no wheezing, no rales Cardiovascular: RRR, no significant murmur Gastrointestinal: soft, non-tender, positive bowel sounds Musculoskeletal: no edema, pulses present Neurological: non-focal right hemiparesis Dx/Plan (1) ICH (intracerebral hemorrhage) Code(s): I61.9 - NONTRAUMATIC INTRACEREBRAL HEMORRHAGE, UNSPECIFIED Status: Acute Qualifiers: Intracerebral hemorrhage etiology: nontraumatic Laterality: left Comment: left thalamic with extension, edema, s/p EVD (2) Hypertensive emergency Code(s): I16.1 - HYPERTENSIVE EMERGENCY Status: Acute Comment: resolving (3) Obesity Code(s): E66.9 - OBESITY, UNSPECIFIED Status: Chronic Qualifiers: Obesity classification: adult class 3 (BMI >= 40) Body mass index: BMI 40.0 -44.9 (4) Hyperglycemia Code(s): R73.9 - HYPERGLYCEMIA, UNSPECIFIED Status: Acute Comment: stable now (5) Acute encephalopathy Code(s): G93.40 - ENCEPHALOPATHY, UNSPECIFIED Status: Acute - Plan for trach and peg -: encephalopathy still present, gets agitated with stopping of sedation -: no purposefull movement, moving all extremities this am per staff -: on multiple antihtn meds plus cardene -: prognosis guarded * . Review of Systems - Medications/Allergies Allergies/Adverse Reactions: Allergies Allergy/AdvReac Type Severity Reaction Status Date / Time No Known Drug Allergies Allergy Verified 12/10/18 22:13 Medications: Current Medications Acetaminophen (Tylenol Elixir) 1,000 mg PER TUBE Q6H PRN PRN Reason: Headache/Fever or Pain Albuterol/Ipratropium (Duoneb) 3 ml NEB [id number] [facility] Last Admin: 12/15/18 07:34 Dose: 3 ml Amlodipine Besylate (Norvasc) 10 mg PER TUBE DAILY [facility] Last Admin: 12/14/18 09:25 Dose: 10 mg Clonidine (Catapres) 0.2 mg PER TUBE TID [facility] Last Admin: 12/14/18 20:03 Dose: 0.2 mg Dextrose/Water (Dextrose 50%) 25 gm SLOW IVP PRN PRN PRN Reason: Hypoglycemia Famotidine (Pepcid) 20 mg SLOW IVP Q12HR [facility] Last Admin: 12/14/18 20:03 Dose: 20 mg Glucagon (Glucagon) 1 mg IM PRN PRN PRN Reason: Hypoglycemia Hydralazine HCl (Apresoline) 10 mg SLOW IVP Q4H PRN PRN Reason: SBP>160 Last Admin: 12/10/18 23:59 Dose: 10 mg Nicardipine HCl 50 mg/ Sodium (Chloride) 250 mls @ 0 mls/hr IVPB INF PRN; Protocol PRN Reason: SBP > 150 or DBP > 90 Last Admin: 12/15/18 03:03 Dose: 250 mls Fentanyl Citrate 2,000 mcg/ (Sodium Chloride) 100 mls @ 0 mls/hr IV INF SASCHA; Protocol Stop: 01/09/19 21:37 Fentanyl Citrate (Fentanyl Bolus) 250 mls @ 0 mls/hr IVPB PRN PRN PRN Reason: Breakthrough pain/agitation Stop: 01/09/19 21:37 Potassium Chloride 40 meq/ (Sodium Chloride) 270 mls @ 135 mls/hr IVPB ASDIR PRN PRN Reason: FOR SERUM K+ 2.5 - 3.5 Potassium Chloride 40 meq/ (Device) 100 mls @ 50 mls/hr IVPB ASDIR PRN PRN Reason: FOR SERUM K+ 2.5 - 3.5 Last Admin: 12/11/18 20:03 Dose: 100 mls Magnesium Sulfate 1 gm/ Sodium (Chloride) 102 mls @ 102 mls/hr IV PRN PRN PRN Reason: MAG LEVEL 1.4 - 2.0 Magnesium Sulfate 2 gm/ Device 100 mls @ 100 mls/hr IVPB ASDIR PRN PRN Reason: MAGNESIUM < 1.4 Potassium Phosphate 9 mmol/ (Sodium Chloride) 103 mls @ 25.75 mls/hr IVPB ASDIR PRN PRN Reason: Phosphate 1.0-1.8 Potassium Phosphate 12 mmol/ (Sodium Chloride) 254 mls @ 63.5 mls/hr IV ASDIR PRN PRN Reason: Serum phosphate 0.5-0.9 Potassium Phosphate 15 mmol/ (Sodium Chloride) 255 mls @ 63.75 mls/hr IV ASDIR PRN PRN Reason: Serum Phos < 0.5 Levetiracetam 500 mg/ Device 100 mls @ 200 mls/hr IVPB BID SASCHA Last Admin: 12/14/18 21:14 Dose: 100 mls Dextrose/Water (D5w) 1,000 mls @ 0 mls/hr IV .Q0M PRN PRN Reason: Hypoglycemia Midazolam HCl (Versed) 100 mls @ 0 mls/hr IVPB INF SASCHA; Protocol Last Admin: 12/14/18 17:01 Dose: 100 mls Piperacillin Sod/Tazobactam (Sod 3.375 gm/ Sodium Chloride) 100 mls @ 200 mls/ hr IVPB Q6HR [facility] Last Admin: 12/15/18 05:31 Dose: 100 mls Cefazolin Sodium/Dextrose (Ancef) 50 mls @ 100 mls/hr IVPB Q8HR [facility] Last Admin: 12/15/18 05:24 Dose: 50 mls Cefazolin Sodium/Dextrose (Ancef) 50 mls @ 100 mls/hr IVPB WILLCALL SASCHA Insulin Human Lispro (Humalog) 0 units SC .MODERATE SLIDING SC PRN PRN Reason: Moderate Correctional Scale Insulin Human Lispro (Humalog) 0 units SC .BEDTIME SLIDING SC PRN PRN Reason: Bedtime Correctional Scale Labetalol HCl (Normodyne) 10 mg SLOW IVP Q4H PRN PRN Reason: SBP Greater Than 180 Last Admin: 12/14/18 05:33 Dose: 10 mg Lorazepam (Ativan) 2 mg SLOW IVP Q1H PRN PRN Reason: Breakthrough agitation Stop: 01/09/19 21:37 Last Admin: 12/14/18 16:55 Dose: 2 mg Magnesium Oxide (Magnesium Oxide) 400 mg PO BIDPRN PRN PRN Reason: FOR SERUM MAG 1.4 - 2.0 Magnesium Oxide (Magnesium Oxide) 800 mg PO PRN PRN PRN Reason: FOR SERUM MAG < 1.4 Metoprolol Tartrate (Lopressor) 25 mg PER TUBE BID [facility] Last Admin: 12/14/18 20:03 Dose: 25 mg Miscellaneous Medication (Phos-Nak) 1 pkt PO TIDPRN PRN PRN Reason: FOR PHOS LEVEL 1.0 - 1.8 Last Admin: 12/13/18 21:51 Dose: 1 pkt Miscellaneous Medication (Phos-Nak) 2 pkt PO TIDPRN PRN PRN Reason: FOR PHOS LEVEL 0.5 - 1.0 Last Admin: 12/12/18 11:20 Dose: 2 pkt Morphine Sulfate (Morphine) 2 mg SLOW IVP Q1H PRN PRN Reason: BREAKTHROUGH PAIN/Agitation Stop: 01/09/19 21:37 Last Admin: 12/14/18 16:55 Dose: 2 mg Discontinue Previous Narcotic Pain Medications And Benzodiazepines 1 each FS .ONE [facility] Stop: 01/09/19 21:37 Ccu Electrolyte (Replacement Protocol) 0 each FS PRN PRN PRN Reason: FOR ELECTROLYTE REPLACEMENT Ondansetron HCl (Zofran) 4 mg IVP BIDPRN PRN PRN Reason: Nausea/Vomiting Potassium Chloride (K-Dur) 40 meq PO ASDIR PRN PRN Reason: FOR SERUM K+ 2.5 - 3.5 Last Admin: 12/14/18 09:24 Dose: 40 meq Potassium Chloride (Klor-Con) 40 meq PER TUBE ASDIR PRN PRN Reason: FOR SERUM K+ 2.5-3.5 Last Admin: 12/13/18 09:44 Dose: 40 meq Sodium Chloride (Flush - Normal Saline) 10 ml IVF PRN PRN PRN Reason: Saline Flush Vecuronium [place] (Norcuron) 10 mg IVP Q30MIN PRN PRN Reason: Agitation
--- NOTE | 2018-12-15 17:20 | OP ---
DATE OF PROCEDURE: 12/15/2018 PREOPERATIVE DIAGNOSES: 1. Acute severe intracranial hemorrhage. 2. Acute respiratory failure secondary to acute severe intracranial hemorrhage. POSTOPERATIVE DIAGNOSES: 1. Acute severe intracranial hemorrhage. 2. Acute respiratory failure secondary to acute severe intracranial hemorrhage. PROCEDURES PERFORMED: 1. Percutaneous tracheostomy tube placement. 2. Percutaneous endoscopic gastrostomy tube placement. ANESTHESIA: Deep sedation and local. INDICATIONS FOR OPERATION: This is a 48-year-old woman, who was admitted several days ago with acute severe intracranial hemorrhage. She has sustained acute respiratory failure secondary to the intracranial hemorrhage. I have been asked to place a tracheostomy tube to facilitate potential prolonged ventilator support. Gastrostomy tube is also warranted for potential prolonged enteral nutritional supplementation. DESCRIPTION OF PROCEDURE: Informed consent was obtained from the patient's . The patient was placed in supine position after adequate sedation was achieved with aliquots of midazolam and fentanyl intravenously. The patient was also given vecuronium 10 mg intravenously. Mechanical ventilator was set at 100%, on full support. The anterior neck was sterilely prepped and draped in usual fashion. The bronchoscope was introduced through the previous endotracheal tube and advanced to visualize vijay. The tip of the endotracheal tube was withdrawn to approximately 6 cm above the vijay transilluminating the anterior neck in the area chosen for placement of the tracheostomy tube. At this juncture, the skin two fingerbreadths above the suprasternal notch was anesthetized with 1% lidocaine with epinephrine. 1 cm vertical incision was made here using a 15 scalpel. Introducer needle was inserted through this incision and advanced into the tracheal lumen. A guidewire was passed through this needle and advanced into the distal tracheal lumen without resistance. Proper placement of the guidewire was confirmed by bronchoscopy. The needle was withdrawn over the guidewire. The anterior tracheal wall was then sterilely dilated over the guidewire. Finally, a size #8 tracheostomy tube with a dilator and introducer catheter were advanced as a unit over the guidewire and placed in the distal tracheal lumen without resistance. The dilator, introducer catheter, and guidewire were removed as a unit, leaving the tracheostomy tube in place. Inner cannula was inserted through the newly placed tracheostomy tube. The cuff was inflated, and the tracheostomy tube was secured to anterior neck using 0 silk suture at two points. It was connected to mechanical ventilator support via newly placed tracheostomy tube noting good tidal volume. The bronchoscope and the previous endotracheal tube were withdrawn as a unit visualizing the tracheostomy site from above with good hemostasis. Once the endotracheal tube was removed, the bronchoscope was reintroduced through the newly placed tracheostomy tube and advanced to visualize vijay. The scope was then withdrawn visualizing the tracheostomy site from below. No active bleeding present. The patient tolerated this procedure without any apparent complication and remains hemodynamically stable following completion of the procedure. We then turned our attention to the abdomen, where we will proceed with placement of gastrostomy tube. At this juncture, a mouth guard was put in place. Through this, an endoscope was introduced per oral, and the esophagus was intubated with gentle insufflation. The gastric lumen was entered. The stomach was insufflated, and the scope was advanced into the proximal duodenum, finding no peptic ulcerative disease. The scope was withdrawn into the stomach and transilluminated in the left upper quadrant, area chosen for placement of the gastrostomy tube. At this juncture, my registered dental assistant rda proceeded to sterilely prep and drape the abdomen. The skin is anesthetized with 1% lidocaine. A stab incision was made using 11 scalpel. An introducer needle was then inserted through the stab incision and advanced into the gastric lumen, visualized by endoscopy. Guidewire was passed through the needle and advanced into the gastric lumen and captured with an Endo-Snare through the endoscope. The guidewire with the endoscope was then withdrawn per oral. The guidewire was then connected to 20-Icelandic gastrostomy tube. Distal end of the guidewire was then pulled through the stab incision on the abdominal wall, leaving the mushroom end of the gastrostomy tube abutting the gastric wall within the lumen. Proper sitting of the mushroom end of the gastrostomy tube was confirmed by endoscopy. The gastrostomy tube was then fashioned to length and secured to anterior abdominal wall using a bolster. Finding no pathology within the gastric lumen and no active bleeding noted, the stomach was desufflated. Endoscope was withdrawn visualizing intact esophageal mucosa. The patient tolerated this operation without any apparent complication and remains hemodynamically stable following completion of procedure. Job ID: [id number]
[2018-12-15] MEDS: Acetaminophen 650 MG/20.3 ML UDCUP PER TUBE PRN (21:34)
[2018-12-16] MEDS: Piperacillin/Tazobactam 3.375 GM in Sodium Chloride 0.9% 100 ML IVPB SCH ×4 (01:33→17:19)
[2018-12-16 05:25] LABS: Anion Gap 14 mmol/L (10-20); BUN (Urea Nitrogen) 20 mg/dL (7.0-18.7); Calc. Creatinine Clearance 110 mL/min (70-130); Carbon Dioxide 22 mmol/L (22-29); Chloride 115 mmol/L (98-107); Estimated GFR-MDRD 61; Glucose 102 mg/dL (70-105); Potassium 3.4 mmol/L (3.5-5.1); Sodium 148 mmol/L (136-145)
[2018-12-16 05:31] LABS: Band 2 % (5-11); Hemoglobin 9.6 g/dL (12.0-16.0); Hypochromia SLIGHT = 6-15 cells (100X) (0-5/hpf); Lymphocytes 15 % (21-51); MDiff Complete? YES; Mean Corpuscular HGB CONC 32.1 g/dL (32.0-36.0); Mean Corpuscular Hemoglobin 28.3 pg (27.0-31.0); Mean Corpuscular Volume 88.4 fL (78.0-98.0); Mean Platelet Volume 9.4 fL (7.4-10.4); Monocytes 8 % (0-10); Neutrophil 75 % (42-75); Platelet Count 317 thou/uL (130-400); Platelet Morphology Comment Appears Adequate; RBC Distribution Width 14.3 % (11.5-14.5); White Blood Cell (WBC) Count 13.4 thou/uL (4.8-10.8)
[2018-12-16 07:24] LABS: Actual Bicarbonate (HCO3a) 22.9 mEq/L (22-28); Base Excess (BEa) -0.7 mEq/L (-2.0 to +3.0); CO2 Tension 33.8 mmHg (35.0-45.0); Carboxyhemoglobin (COHb) 0.9 gm% (0.0-3.0); Hemoglobin (Hb) 9.6 g/dL (12.0-16.0); O2 Tension (PaO2) 72.3 mmHg (80.0-100.0); Potassium - ABG Lab 3.48 mmol/L (3.70-5.30); pH, Arterial 7.45 (7.35-7.45)
[2018-12-16 07:27] LABS: Puncture Site RRA
--- NOTE | 2018-12-16 08:44 | PRG ---
DATE OF SERVICE: TIME SPENT: This is 35 minutes critical time. SUBJECTIVE: The patient remains on mechanical ventilation through tracheostomy. OBJECTIVE: GENERAL: She is in no distress. VITAL SIGNS: Temperature is 98.6 with a T-max of 102.2, pulse 99, blood pressure 158/97. A 24-hour intake 2506, output 2685. HEENT: Pupils are sluggishly reactive. Her eyes deviated to the left. NECK: Trach in place. LUNGS: Clear anteriorly. CARDIAC: S1, S2. Regular without murmur. ABDOMEN: Soft nontender. EXTREMITIES: No edema. LABORATORY DATA: White blood cell count 13.4, hematocrit 30, platelet count 317. PH of 7.45, pCO2 of 33, PO2 of 72, on SIMV rate 10, tidal volume 500, PEEP 8, pressure support 10, FiO2 is 40%. Sodium 148, potassium 3.4, chloride 115, CO2 of 22, BUN 20, creatinine 1.1, glucose 102. Chest x-ray shows some clearing compared to previous films. ASSESSMENT: 1. Acute respiratory failure requiring mechanical ventilation. 2. Thalamic brain bleed. 3. Malignant hypertension. 4. Fever which is probably secondary to the brain bleed. PLAN: 1. I will go ahead and have the patient re-cultured. 2. Discontinue the Versed drip. 3. Minimize sedation as much as possible. 4. Continue Keppra for seizure prophylaxis. 5. Update family when they arrive. 6. Discontinue daily blood gases and daily chest x-ray. Job ID: [id number]
--- NOTE | 2018-12-16 08:58 | RAD ---
CHEST 1 VIEW: HISTORY: Respiratory insufficiency, ventilation. FINDINGS: The previously noted NG Tube and endotracheal tube have been removed and a tracheostomy tube placed a long with a left central line. Bilateral vascular congestion with some alveolar parenchymal changes in the perihilar regions bilaterally with some blunting of the costophrenic angles overall stable fro m prior study. IMPRESSION: Persistent bilateral mostly alveolar, perihilar, and lower lung zone parenchymal changes with minimal costophrenic angle blunting. Continue short-term followup. POS: STELLA
[2018-12-16] MEDS: Labetalol HCl 100 MG/20 ML VIAL SLOW IVP PRN ×2 (09:17→16:03)
[2018-12-16] MEDS: Metoprolol Tartrate 25 MG TAB PER TUBE SCH ×2 (09:32→21:16)
[2018-12-16] MEDS: Famotidine/PF 20 mg/2ml Vial SLOW IVP SCH (09:32)
[2018-12-16] MEDS: cloNIDine 0.2 MG TAB PER TUBE SCH ×3 (09:33→21:16)
[2018-12-16] MEDS: Amlodipine 10 MG TAB PER TUBE SCH (09:33)
--- NOTE | 2018-12-16 11:29 | PRG ---
DATE OF SERVICE: 12/16/2018 SUBJECTIVE: The patient is day 1 status post percutaneous tracheostomy tube placement and percutaneous endoscopic gastrostomy tube placement. The patient had no issues with these overnight. This morning, they appeared to be functioning properly. The PEG tube is available for use for feeding and the tracheostomy tube is functioning well, and will require sutures to be removed in 7 days. Please contact us with any questions. Job ID: [id number]
--- NOTE | 2018-12-16 12:14 | PDOC.PN ---
- Subjective Encounter Start Date: 12/16/18 Encounter Start Time: 11:00 Subjective: on vent, had trach and peg yesterday -: is on mild sedation - Objective MAR Reviewed: Yes Vital Signs & Weight: Vital Signs (12 hours) Temp Pulse Resp BP 12/16/18 10:43 90 12/16/18 09:33 107 H 232/164 H 12/16/18 09:17 107 H 232/164 H 12/16/18 07:35 98 12/16/18 06:00 25 H 12/16/18 04:00 98.6 F 23 H 12/16/18 02:27 96 154/96 H 12/16/18 02:00 30 H Weight Admit Weight 246 lb 11.156 oz Weight 253 lb 12.033 oz Most Recent Monitor Data Heart Rate from ECG 92 NIBP 169/104 NIBP BP-Mean 125 Respiration from ECG 15 SpO2 100 I&O: 12/15/18 12/16/18 12/17/18 06:59 06:59 06:59 Intake Total 3687 2506 Output Total 9764 2685 Balance -6077 -179 Result Diagrams: 12/16/18 04:15 12/16/18 04:15 Additional Labs: Accuchecks 12/16/18 12/16/18 12/15/18 11:46 04:16 23:52 POC Glucose 98 96 133 H 12/15/18 12/15/18 16:51 12:57 POC Glucose 118 H 112 H Phys Exam - Physical Examination HEENT: moist MMs Neck: no JVD trach+ Respiratory: no wheezing, no rales Cardiovascular: RRR, no significant murmur Gastrointestinal: soft, non-tender, positive bowel sounds peg+ Musculoskeletal: pulses present right hemiparesis Dx/Plan (1) ICH (intracerebral hemorrhage) Code(s): I61.9 - NONTRAUMATIC INTRACEREBRAL HEMORRHAGE, UNSPECIFIED Status: Acute Qualifiers: Intracerebral hemorrhage etiology: nontraumatic Laterality: left Comment: left thalamic with extension, edema, s/p EVD (2) Hypertensive emergency Code(s): I16.1 - HYPERTENSIVE EMERGENCY Status: Acute Comment: resolving (3) Obesity Code(s): E66.9 - OBESITY, UNSPECIFIED Status: Chronic Qualifiers: Obesity classification: adult class 3 (BMI >= 40) Body mass index: BMI 40.0 -44.9 (4) Hyperglycemia Code(s): R73.9 - HYPERGLYCEMIA, UNSPECIFIED Status: Acute Comment: stable now (5) Acute encephalopathy Code(s): G93.40 - ENCEPHALOPATHY, UNSPECIFIED Status: Acute - Plan diuresed enormous amount of urine yesterday (9500ml) -: is off mannitol -: await cognitive function to improve -: weaning when encephalopathy clears up -: peg feeding, on norvasc, lopressor, clonidine plus cardene drip * . all meds are via peg except zosyn to reduce total volume of intake. watch for electrolytes and renal function. Review of Systems - Medications/Allergies Allergies/Adverse Reactions: Allergies Allergy/AdvReac Type Severity Reaction Status Date / Time No Known Drug Allergies Allergy Verified 12/10/18 22:13 Medications: Current Medications Acetaminophen (Tylenol Elixir) 1,000 mg PER TUBE Q6H PRN PRN Reason: Headache/Fever or Pain Last Admin: 12/15/18 21:34 Dose: 1,000 mg Albuterol/Ipratropium (Duoneb) 3 ml NEB [id number] [facility] Last Admin: 12/16/18 07:34 Dose: 3 ml Amlodipine Besylate (Norvasc) 10 mg PER TUBE DAILY [facility] Last Admin: 12/16/18 09:33 Dose: 10 mg Clonidine (Catapres) 0.2 mg PER TUBE TID [facility] Last Admin: 12/16/18 09:33 Dose: 0.2 mg Dextrose/Water (Dextrose 50%) 25 gm SLOW IVP PRN PRN PRN Reason: Hypoglycemia Famotidine (Pepcid) 20 mg SLOW IVP Q12HR [facility] Last Admin: 12/16/18 09:32 Dose: 20 mg Glucagon (Glucagon) 1 mg IM PRN PRN PRN Reason: Hypoglycemia Hydralazine HCl (Apresoline) 10 mg SLOW IVP Q4H PRN PRN Reason: SBP>160 Last Admin: 12/10/18 23:59 Dose: 10 mg Nicardipine HCl 50 mg/ Sodium (Chloride) 250 mls @ 0 mls/hr IVPB INF PRN; Protocol PRN Reason: SBP > 150 or DBP > 90 Last Admin: 12/15/18 13:02 Dose: 250 mls Potassium Chloride 40 meq/ (Sodium Chloride) 270 mls @ 135 mls/hr IVPB ASDIR PRN PRN Reason: FOR SERUM K+ 2.5 - 3.5 Potassium Chloride 40 meq/ (Device) 100 mls @ 50 mls/hr IVPB ASDIR PRN PRN Reason: FOR SERUM K+ 2.5 - 3.5 Last Admin: 12/11/18 20:03 Dose: 100 mls Magnesium Sulfate 1 gm/ Sodium (Chloride) 102 mls @ 102 mls/hr IV PRN PRN PRN Reason: MAG LEVEL 1.4 - 2.0 Magnesium Sulfate 2 gm/ Device 100 mls @ 100 mls/hr IVPB ASDIR PRN PRN Reason: MAGNESIUM < 1.4 Potassium Phosphate 9 mmol/ (Sodium Chloride) 103 mls @ 25.75 mls/hr IVPB ASDIR PRN PRN Reason: Phosphate 1.0-1.8 Potassium Phosphate 12 mmol/ (Sodium Chloride) 254 mls @ 63.5 mls/hr IV ASDIR PRN PRN Reason: Serum phosphate 0.5-0.9 Potassium Phosphate 15 mmol/ (Sodium Chloride) 255 mls @ 63.75 mls/hr IV ASDIR PRN PRN Reason: Serum Phos < 0.5 Levetiracetam 500 mg/ Device 100 mls @ 200 mls/hr IVPB BID [facility] Last Admin: 12/16/18 09:32 Dose: 100 mls Dextrose/Water (D5w) 1,000 mls @ 0 mls/hr IV .Q0M PRN PRN Reason: Hypoglycemia Piperacillin Sod/Tazobactam (Sod 3.375 gm/ Sodium Chloride) 100 mls @ 200 mls/ hr IVPB Q6HR [facility] Last Admin: 12/16/18 06:22 Dose: 100 mls Cefazolin Sodium/Dextrose (Ancef) 50 mls @ 100 mls/hr IVPB Q8HR [facility] Last Admin: 12/16/18 06:22 Dose: 50 mls Cefazolin Sodium/Dextrose (Ancef) 50 mls @ 100 mls/hr IVPB WILLCALL [facility] Insulin Human Lispro (Humalog) 0 units SC .MODERATE SLIDING SC PRN PRN Reason: Moderate Correctional Scale Insulin Human Lispro (Humalog) 0 units SC .BEDTIME SLIDING SC PRN PRN Reason: Bedtime Correctional Scale Labetalol HCl (Normodyne) 10 mg SLOW IVP Q4H PRN PRN Reason: SBP Greater Than 180 Last Admin: 12/16/18 09:17 Dose: 10 mg Lorazepam (Ativan) 2 mg SLOW IVP Q1H PRN PRN Reason: Breakthrough agitation Stop: 01/09/19 21:37 Last Admin: 12/14/18 16:55 Dose: 2 mg Magnesium Oxide (Magnesium Oxide) 400 mg PO BIDPRN PRN PRN Reason: FOR SERUM MAG 1.4 - 2.0 Magnesium Oxide (Magnesium Oxide) 800 mg PO PRN PRN PRN Reason: FOR SERUM MAG < 1.4 Metoprolol Tartrate (Lopressor) 25 mg PER TUBE BID [facility] Last Admin: 12/16/18 09:32 Dose: 25 mg Miscellaneous Medication (Phos-Nak) 1 pkt PO TIDPRN PRN PRN Reason: FOR PHOS LEVEL 1.0 - 1.8 Last Admin: 12/13/18 21:51 Dose: 1 pkt Miscellaneous Medication (Phos-Nak) 2 pkt PO TIDPRN PRN PRN Reason: FOR PHOS LEVEL 0.5 - 1.0 Last Admin: 12/12/18 11:20 Dose: 2 pkt Morphine Sulfate (Morphine) 2 mg SLOW IVP Q1H PRN PRN Reason: BREAKTHROUGH PAIN/Agitation Stop: 01/09/19 21:37 Last Admin: 12/14/18 16:55 Dose: 2 mg Discontinue Previous Narcotic Pain Medications And Benzodiazepines 1 each FS .ONE [facility] Stop: 01/09/19 21:37 Ccu Electrolyte (Replacement Protocol) 0 each FS PRN PRN PRN Reason: FOR ELECTROLYTE REPLACEMENT Ondansetron HCl (Zofran) 4 mg IVP BIDPRN PRN PRN Reason: Nausea/Vomiting Potassium Chloride (K-Dur) 40 meq PO ASDIR PRN PRN Reason: FOR SERUM K+ 2.5 - 3.5 Last Admin: 12/14/18 09:24 Dose: 40 meq Potassium Chloride (Klor-Con) 40 meq PER TUBE ASDIR PRN PRN Reason: FOR SERUM K+ 2.5-3.5 Last Admin: 12/16/18 06:40 Dose: 40 meq Sodium Chloride (Flush - Normal Saline) 10 ml IVF PRN PRN PRN Reason: Saline Flush
[2018-12-16] MEDS: Morphine 2 MG/ML SYRINGE SLOW IVP PRN (16:16)
[2018-12-16] MEDS: levETIRAcetam 500 MG TAB PO SCH (21:16)
[2018-12-17] MEDS: Piperacillin/Tazobactam 3.375 GM in Sodium Chloride 0.9% 100 ML IVPB SCH ×5 (00:59→23:12)
[2018-12-17] MEDS: Morphine 2 MG/ML SYRINGE SLOW IVP PRN ×5 (04:21→22:21)
[2018-12-17 04:57] LABS: Hemoglobin 9.1 g/dL (12.0-16.0); Mean Corpuscular HGB CONC 31.8 g/dL (32.0-36.0); Mean Corpuscular Hemoglobin 28.4 pg (27.0-31.0); Mean Corpuscular Volume 89.3 fL (78.0-98.0); Mean Platelet Volume 9.2 fL (7.4-10.4); Platelet Count 324 thou/uL (130-400); RBC Distribution Width 14.3 % (11.5-14.5); Red Blood Cell (RBC) Count 3.21 mill/uL (4.20-5.40); White Blood Cell (WBC) Count 16.3 thou/uL (4.8-10.8)
[2018-12-17 05:13] LABS: Anion Gap 10 mmol/L (10-20); BUN (Urea Nitrogen) 21 mg/dL (7.0-18.7); Calc. Creatinine Clearance 132 mL/min (70-130); Carbon Dioxide 26 mmol/L (22-29); Chloride 113 mmol/L (98-107); Estimated GFR-MDRD 75; Glucose 147 mg/dL (70-105); Potassium 3.6 mmol/L (3.5-5.1); Sodium 145 mmol/L (136-145)
[2018-12-17 05:22] LABS: Band 6 % (5-11); Eosinophils 2 % (0-10); Lymphocytes 15 % (21-51); MDiff Complete? YES; Metamyelocyte 2 % (0-0); Monocytes 16 % (0-10); Myelocyte 4 % (0-0); Neutrophil 55 % (42-75)
[2018-12-17 06:57] LABS: Actual Bicarbonate (HCO3a) 25.7 mEq/L (22-28); Base Excess (BEa) 1.5 mEq/L (-2.0 to +3.0); CO2 Tension 38.9 mmHg (35.0-45.0); Calcium, Ionized 1.21 mmol/L (1.12-1.30); Carboxyhemoglobin (COHb) 0.9 gm% (0.0-3.0); Hemoglobin (Hb) 9.5 g/dL (12.0-16.0); O2 Tension (PaO2) 112.9 mmHg (80.0-100.0); pH, Arterial 7.44 (7.35-7.45)
[2018-12-17 06:58] LABS: ALV-art Gradient 123.675 (0-20); Puncture Site LRA
--- NOTE | 2018-12-17 08:53 | PRG ---
DATE OF SERVICE: 12/17/2018 35 minutes critical time. SUBJECTIVE: The patient remains on mechanical ventilation through tracheostomy. She is now beginning to open her eyes. She blinks to threat. She will not follow commands specifically. Of note, the Versed drip was discontinued yesterday, so it may take a few days for that to wear off. OBJECTIVE: VITAL SIGNS: Her temperature is 99.7 with a T-max of 100.1, pulse 94, blood pressure 150/92. 24-hour intake 2822, output 2567. HEENT: Otherwise, unremarkable. NECK: No JVD. LUNGS: Clear anteriorly. CARDIAC: S1, S2. Regular. ABDOMEN: Soft, nontender. She is tolerating tube feeds. EXTREMITIES: Edematous throughout. LABORATORY DATA: White blood cell count 16.3, hematocrit 28.6, and platelet count 324. PH of 7.44, pCO2 of 38, pO2 of 112 on SIMV rate 10, tidal volume 500, PEEP 8, pressure 10, FiO2 40%. Sodium 145, potassium 3.6, chloride 113, CO2 of 26, BUN 21, creatinine 0.9, glucose 147. ASSESSMENT: 1. Acute respiratory failure requiring mechanical ventilation. 2. Thalamic brain bleed. 3. Malignant hypertension. 4. Fever, which I think is probably secondary to brain bleed. PLAN: 1. The patient was re-cultured yesterday. We will need to adjust or discontinue antibiotics based on those culture results. Right now she is on cefazolin for prophylaxis for her ventriculostomy. She is on piperacillin/tazobactam for her high fever last week. 2. Discontinue daily ABGs. 3. Can begin CPAP trial as tolerated. If she tolerates that, then trach collar soon. Job ID: [id number]
[2018-12-17] MEDS: levETIRAcetam 500 MG TAB PO SCH ×2 (09:02→21:02)
[2018-12-17] MEDS: cloNIDine 0.2 MG TAB PER TUBE SCH ×3 (09:02→21:02)
[2018-12-17] MEDS: Amlodipine 10 MG TAB PER TUBE SCH (09:05)
[2018-12-17] MEDS: Pantoprazole 40 MG GRANULES PACKET PER TUBE SCH (09:05)
[2018-12-17] MEDS: Metoprolol Tartrate 25 MG TAB PER TUBE SCH ×2 (09:05→21:02)
--- NOTE | 2018-12-17 09:25 | PRG ---
DATE OF SERVICE: I am seeing Ms. Villarreal back in followup. Her clinical exam is the same and she opens eyes and is purposeful on the left side to noxious stimulus. She has tolerated the EVD at 20 cm. My plan is to clamp the EVD and check a CT scan tomorrow and if this is satisfactory, we will remove the EVD over the weekend. We can then focus on long-term placement. Her prognosis for long-term recovery is that she does have potential for some meaningful recovery, although she will not return to normal neurologic function. I have discussed this with the family. Job ID: [id number]
[2018-12-17] MEDS: Acetaminophen 650 MG/20.3 ML UDCUP PER TUBE PRN (17:12)
[2018-12-17] MEDS: hydrALAZINE 20 MG/ML VIAL SLOW IVP PRN ×2 (17:12→22:20)
--- NOTE | 2018-12-17 18:41 | PDOC.PN ---
- Subjective Encounter Start Date: 12/17/18 Encounter Start Time: 16:40 Subjective: somnolent. Reportedly recieved narcotic a while prior. No fever. -: Off cardene infusion. - Objective MAR Reviewed: Yes Vital Signs & Weight: Vital Signs (12 hours) Temp Pulse Pulse Pulse Resp BP BP 12/17/18 18:36 90 12/17/18 18:35 82 19 12/17/18 18:00 20 12/17/18 17:12 91 176/110 H 12/17/18 16:00 100.3 F H 20 12/17/18 15:05 99 12/17/18 14:55 177/104 H 12/17/18 14:00 20 12/17/18 12:47 92 12/17/18 12:00 99.7 F H 21 H 12/17/18 11:18 82 12/17/18 10:00 20 12/17/18 09:25 85 85 119/113 H 12/17/18 09:05 95 176/116 H 12/17/18 09:02 176/116 H 12/17/18 08:20 105 H 12/17/18 08:00 99.9 F H 20 12/17/18 06:53 95 BP Pulse Ox Pulse Ox Pulse Ox 12/17/18 18:36 12/17/18 18:35 100 12/17/18 18:00 12/17/18 17:12 12/17/18 16:00 12/17/18 15:05 12/17/18 14:55 12/17/18 14:00 12/17/18 12:47 12/17/18 12:00 12/17/18 11:18 12/17/18 10:00 12/17/18 09:25 163/10 H 100 100 12/17/18 09:05 12/17/18 09:02 12/17/18 08:20 12/17/18 08:00 100 12/17/18 06:53 Weight Admit Weight 246 lb 11.156 oz Weight 253 lb 4.978 oz Most Recent Monitor Data Heart Rate from ECG 89 NIBP 163/95 NIBP BP-Mean 117 Respiration from ECG 20 SpO2 100 I&O: 12/16/18 12/17/18 12/18/18 06:59 06:59 06:59 Intake Total 2506 2822.7 1453.6 Output Total 2685 2567 1450 Balance -179 255.7 3.6 Result Diagrams: 12/17/18 03:46 12/17/18 03:46 Phys Exam - Physical Examination Right fronteotemporal scalp dressing noted Tracheostomy noted Ventilator transmitted sound noted Cardiovascular: RRR Gastrointestinal: soft, no distention Musculoskeletal: edema present Somnolent. Dx/Plan (1) Acute encephalopathy Code(s): G93.40 - ENCEPHALOPATHY, UNSPECIFIED Status: Acute (2) Hypertensive emergency Code(s): I16.1 - HYPERTENSIVE EMERGENCY Status: Acute Comment: resolving (3) ICH (intracerebral hemorrhage) Code(s): I61.9 - NONTRAUMATIC INTRACEREBRAL HEMORRHAGE, UNSPECIFIED Status: Acute Qualifiers: Intracerebral hemorrhage etiology: nontraumatic Laterality: left Comment: left thalamic with extension, edema, s/p EVD (4) Obesity Code(s): E66.9 - OBESITY, UNSPECIFIED Status: Chronic Qualifiers: Obesity classification: adult class 3 (BMI >= 40) Body mass index: BMI 40.0 -44.9 - Plan Continue antihypertensives and adjust as needed to get adequate BP_ control -: Appreciate Neurosurgery input. -: Repeat CT scan tomorrow as per Neurosurgy -: continue tube feeding and other supportive care * .
[2018-12-17] MEDS: Labetalol HCl 100 MG/20 ML VIAL SLOW IVP PRN ×2 (19:20→23:13)
[2018-12-18] MEDS: Labetalol HCl 100 MG/20 ML VIAL SLOW IVP PRN ×2 (02:27→05:46)
[2018-12-18] MEDS: hydrALAZINE 20 MG/ML VIAL SLOW IVP PRN ×2 (02:49→08:29)
[2018-12-18] MEDS: Morphine 2 MG/ML SYRINGE SLOW IVP PRN ×5 (02:49→23:07)
[2018-12-18 05:02] LABS: Anion Gap 14 mmol/L (10-20); BUN (Urea Nitrogen) 16 mg/dL (7.0-18.7); Calc. Creatinine Clearance 159 mL/min (70-130); Calcium 9.1 mg/dL (7.8-10.44); Carbon Dioxide 24 mmol/L (22-29); Chloride 110 mmol/L (98-107); Estimated GFR-MDRD Greater than 90; Glucose 143 mg/dL (70-105); Potassium 3.7 mmol/L (3.5-5.1); Sodium 144 mmol/L (136-145)
[2018-12-18 05:07] LABS: Band 9 % (5-11); Eosinophils 2 % (0-10); Hemoglobin 10.5 g/dL (12.0-16.0); Lymphocytes 16 % (21-51); MDiff Complete? YES; Mean Corpuscular HGB CONC 31.9 g/dL (32.0-36.0); Mean Corpuscular Hemoglobin 28.3 pg (27.0-31.0); Mean Platelet Volume 8.7 fL (7.4-10.4); Metamyelocyte 1 % (0-0); Monocytes 8 % (0-10); Myelocyte 1 % (0-0); Neutrophil 63 % (42-75); Platelet Count 357 thou/uL (130-400); Platelet Morphology Comment Appears Adequate; RBC Distribution Width 14.5 % (11.5-14.5); White Blood Cell (WBC) Count 19.6 thou/uL (4.8-10.8)
[2018-12-18] MEDS: Piperacillin/Tazobactam 3.375 GM in Sodium Chloride 0.9% 100 ML IVPB SCH ×4 (05:49→23:08)
[2018-12-18] MEDS: Amlodipine 10 MG TAB PER TUBE SCH (08:27)
[2018-12-18] MEDS: Metoprolol Tartrate 25 MG TAB PER TUBE SCH (08:28)
[2018-12-18] MEDS: Pantoprazole 40 MG GRANULES PACKET PER TUBE SCH (08:28)
[2018-12-18] MEDS: levETIRAcetam 500 MG TAB PO SCH ×2 (08:28→20:40)
[2018-12-18] MEDS: cloNIDine 0.2 MG TAB PER TUBE SCH ×3 (08:28→20:39)
--- NOTE | 2018-12-18 08:51 | PRG ---
DATE OF SERVICE: 12/18/2018 SUBJECTIVE: Ms. Villarreal has recovered in the ICU from intracerebral hemorrhage. She has a ventriculostomy in place, which was clamped yesterday. She had a repeat CT examination performed today and that when compared to the one prior shows no change of significance in the size of the ventricles. Neurologically, she is for the most part unchanged. She is minimally interactive. We will keep the drain clamped and move toward likely removal of the drain tomorrow, provided there is no substantial change in her neurologic function. Job ID: [id number]
--- NOTE | 2018-12-18 09:53 | CT ---
PRELIMINARY REPORT/[facility]/EMERGENCY AFTER HOURS PROCEDURE: EXAM: CT Head Without Contrast EXAM DATE/TIME: 12/18/2018 3:47 AM CLINICAL HISTORY: 48 years old, female; Condition or disease; Other: Ich; Patient HX: Ccu. F/u left thalamic ich, evd p lacement TECHNIQUE: Axial computed tomography images of the head/brain without contrast. COMPARISON: CT Brain WO Con 12/15/2018 3:35 AM FINDINGS: Tubes, catheters and devices: Stable appearance of right frontal approach ventriculostomy tube with t ip in the third ventricle. Brain: Stable parenchymaly hemorrhage centered at the left thalamic lobe and lentiform nucleus with s urrounding vasogenic edema. Decrease in volume of Sylvian fissure hemorrhage extension on current pollo dy. No significant change in minimal subfalcine herniation to the right focally at the level of hemor rhage. Ventricles: Stable mild hydrocephalus with intraventricular hemorrhage also unchanged. Bones/joints: Unremarkable. No acute fracture. Sinuses: Visualized sinuses are unremarkable. No acute sinusitis. Mastoid air cells: Visualized mastoid air cells are unremarkable. No mastoid effusion. Soft tissues: Unremarkable. IMPRESSION: No significant change in parenchymal hemorrhage or hydrocephalus. Stable appearance of right frontal approach ventriculostomy tube with tip in the third ventricle. Thank you for allowing us to participate in the care of your patient. Dictated and Authenticated by: Jeannine Naik MD 12/18/2018 4:50 AM Central Time ([place] & [place]) FINAL REPORT EMERGENCY AFTER HOURS CT BRAIN PERFORMED WITHOUT CONTRAST ENHANCEMENT: DATE: 12/18/18 HISTORY: Follow-up of intraparenchymal hemorrhage. COMPARISON: 12/15/18 study. FINDINGS: The bleed which has its epicenter in the left thalamic region extending into the left frontal white m atter is similar in size to the previous examination. Intraventricular blood is also unchanged and ma ss effect is similar. Ventriculoperitoneal shunt tube remains unchanged in position. The intraparench ymal hemorrhage shows some evidence of decrease in overall density, although the change is minimal an d largely technique-related. IMPRESSION: Essentially stable exam. This report is in agreement with the preliminary report issued by [facility]. POS: [facility]
--- NOTE | 2018-12-18 11:18 | PRG ---
DATE OF SERVICE: 12/18/2018 SUBJECTIVE: Ms. Villarreal yesterday by Dr. Mcguire. CT scan this morning essentially looks stable. She does not respond a great deal to me when I am in the room with her. She does not look at me, she stares straight ahead. She does not move her extremities for me. She is hypertensive at 190, so we will need to adjust her medications to better treat this. Job ID: [id number]
[2018-12-18] MEDS: Acetaminophen 650 MG/20.3 ML UDCUP PER TUBE PRN (11:51)
[2018-12-18] MEDS: niCARdipine HCl 50 MG in Sodium Chloride 0.9% 250 ML 230 ML IVPB PRN ×2 (12:12→21:08)
--- NOTE | 2018-12-18 14:52 | PRG ---
DATE OF SERVICE: 12/18/2018 SERVICE: Pulmonary Medicine. INTERVAL HISTORY: The patient is doing okay from respiratory standpoint. She is breathing okay. There has been no interval change to her condition. She remains completely encephalopathic. She is not following any commands. There were no significant events overnight other than some hypertension. She is back on her Cardene drip. PHYSICAL EXAMINATION: VITAL SIGNS: Afebrile, currently with a T-max of 101.1. Pulse 99, blood pressure 174/90, respirations 12, saturation 100% on 5 L via a trach collar. HEENT: Normocephalic. There is an external ventricular drain in place. Sclerae white. Conjunctivae pink. Oral mucosa is moist without lesions. LUNGS: Decent air entry. There is no prolonged expiratory phase. Rhonchi are present. She does not cough. HEART: Normal rate and regular. ABDOMEN: Soft, nontender, and nondistended. Bowel sounds are positive. MUSCULOSKELETAL: No cyanosis or clubbing. There is no pitting in the bilateral lower extremities. NEUROLOGIC: She does not attend. She is breathing comfortably. She withdraws from noxious stimuli. Otherwise, she is nonresponsive. LABORATORY DATA: WBC 19.6, hemoglobin 10.5, platelets 357,000. Basic metabolic profile is essentially unremarkable. Her sodium is 144, chloride 110, creatinine 0.80. Urinalysis and urine drug screen are unremarkable. Blood cultures x4, urine culture x2 have been completely unremarkable. ASSESSMENT: 1. Respiratory failure secondary to inability to protect the airway, status post tracheostomy. 2. Intracranial hemorrhage with intraventricular extension, status post external ventricular drain. 3. Debility, devastating. 4. Hypertensive emergency. DISCUSSION AND PLAN: We will continue to titrate her blood pressure medications in order to keep her pressures as low she can tolerate. Pulmonary Critical Care will continue to follow along in this location. The external ventricular drain has been clamped for a couple of days. As such, we will likely be able to get it out. Once it is out, she can be transitioned to a fdc facility. Since she is no longer on positive pressure ventilation, we will transition her over to bolus feeds. Job ID: [id number]
[2018-12-18] MEDS ORDERED: Labetalol 100 MG TAB PO SCH ×2 (15:30→16:00)
--- NOTE | 2018-12-18 15:37 | PDOC.PN ---
- Subjective Encounter Start Date: 12/18/18 Encounter Start Time: 13:36 Subjective: Awake but unresponsives. Starring into space. -: Off ventilator and on T collar. -: Back on cardene drip for BP control. Still having fevers. - Objective MAR Reviewed: Yes Vital Signs & Weight: Vital Signs (12 hours) Temp Pulse Resp BP Pulse Ox 12/18/18 14:20 174/90 H 12/18/18 14:18 99 12 100 12/18/18 13:48 100 F H 12/18/18 12:00 101.1 F H 12/18/18 10:00 100.6 F H 12/18/18 08:29 94 12/18/18 08:28 187/94 H 12/18/18 08:27 94 187/94 H 12/18/18 08:00 99.8 F H 100 12/18/18 07:00 99.8 F H 12/18/18 06:44 94 23 H 10 L 12/18/18 05:46 102 H 196/117 H Weight Admit Weight 246 lb 11.156 oz Weight 253 lb 12.033 oz Most Recent Monitor Data Heart Rate from ECG 88 NIBP 145/82 NIBP BP-Mean 103 Respiration from ECG 27 SpO2 99 I&O: 12/17/18 12/18/18 12/19/18 06:59 06:59 06:59 Intake Total 2822.7 2611.6 220 Output Total 2567 3275 1460 Balance 255.7 -663.4 -1240 Result Diagrams: 12/18/18 04:20 12/18/18 04:20 Phys Exam - Physical Examination HEENT: moist MMs Scalp dressing noted Neck: no JVD, supple Respiratory: no rales Fair air entry with some transmitted sound Cardiovascular: RRR, no rub Gastrointestinal: soft, no distention, positive bowel sounds Moves right limbs to stimulation. left hemiparesis appreciated. Awake but non interactive Dx/Plan (1) Acute encephalopathy Code(s): G93.40 - ENCEPHALOPATHY, UNSPECIFIED Status: Acute (2) Hypertensive emergency Code(s): I16.1 - HYPERTENSIVE EMERGENCY Status: Acute Comment: resolving (3) ICH (intracerebral hemorrhage) Code(s): I61.9 - NONTRAUMATIC INTRACEREBRAL HEMORRHAGE, UNSPECIFIED Status: Acute Qualifiers: Intracerebral hemorrhage etiology: nontraumatic Laterality: left Comment: left thalamic with extension, edema, s/p EVD (4) Obesity Code(s): E66.9 - OBESITY, UNSPECIFIED Status: Chronic Qualifiers: Obesity classification: adult class 3 (BMI >= 40) Body mass index: BMI 40.0 -44.9 (5) Fever Code(s): R50.9 - FEVER, UNSPECIFIED Status: Acute Qualifiers: Fever type: unspecified Qualified Code(s): R50.9 - Fever, unspecified Comment: Etiology unclear. Infection is a concern but CHALKER SOLES induced fever is most likely. - Plan Substitute metoprolol with labetalol. -: Continue antibiotics -: get respiratory culture and procalcitonin. DC antibiotics if both are -ve -: Supportive care to continue. * .
[2018-12-18] MEDS: Labetalol 100 MG TAB PO SCH (20:40)
[2018-12-19] MEDS: Morphine 2 MG/ML SYRINGE SLOW IVP PRN ×4 (01:19→17:51)
[2018-12-19] MEDS: Labetalol HCl 100 MG/20 ML VIAL SLOW IVP PRN (02:18)
[2018-12-19] MEDS: niCARdipine HCl 50 MG in Sodium Chloride 0.9% 250 ML 230 ML IVPB PRN ×2 (02:21→06:35)
[2018-12-19 04:53] LABS: #Basophils 0.1 thou/uL (0.0-0.2); #Eosinphils 0.3 thou/uL (0.0-0.7); #Neutrophils 13.4 thou/uL (1.40-6.50); %Basophils 0.4 % (0.0-1.0); %Eosinophils 1.8 % (0.0-10.0); %Monocytes 11.4 % (0.0-10.0); %Neutrophils 75.5 % (42.0-75.0); Mean Corpuscular HGB CONC 31.2 g/dL (32.0-36.0); Mean Corpuscular Hemoglobin 27.7 pg (27.0-31.0); Mean Corpuscular Volume 88.8 fL (78.0-98.0); Mean Platelet Volume 8.9 fL (7.4-10.4); Platelet Count 454 thou/uL (130-400); RBC Distribution Width 14.9 % (11.5-14.5); Red Blood Cell (RBC) Count 3.98 mill/uL (4.20-5.40); White Blood Cell (WBC) Count 17.8 thou/uL (4.8-10.8)
[2018-12-19 05:09] LABS: Anion Gap 14 mmol/L (10-20); BUN (Urea Nitrogen) 16 mg/dL (7.0-18.7); Calc. Creatinine Clearance 166 mL/min (70-130); Calcium 9.2 mg/dL (7.8-10.44); Carbon Dioxide 22 mmol/L (22-29); Chloride 108 mmol/L (98-107); Estimated GFR-MDRD Greater than 90; Glucose 157 mg/dL (70-105); Potassium 3.4 mmol/L (3.5-5.1); Sodium 141 mmol/L (136-145)
[2018-12-19] MEDS: Piperacillin/Tazobactam 3.375 GM in Sodium Chloride 0.9% 100 ML IVPB SCH ×4 (05:10→23:55)
[2018-12-19] MEDS ORDERED: Furosemide 20 MG/2 ML VIAL SLOW IVP SCH (06:15)
[2018-12-19] MEDS ORDERED: Labetalol HCl 100 MG/20 ML VIAL SLOW IVP PRN (06:17)
--- NOTE | 2018-12-19 06:45 | PRG ---
DATE OF SERVICE: 12/19/2018 SERVICE: Pulmonary Medicine. INTERVAL HISTORY: The patient had issues with elevated blood pressures. She got put on a Cardene drip. Otherwise, there has been no interval change to her condition. Her blood pressures are up and down. Her respiratory rate is also up and down. She has been having some fevers on and off. Otherwise, there has been no interval change to her condition. She certainly cannot provide any additional elements. PHYSICAL EXAMINATION: VITAL SIGNS: Afebrile with a T-max of 101.1 overnight. Pulse 94, blood pressure 156/84, respirations 39, saturation 98% on 5 L via the trach collar. HEENT: Normocephalic and atraumatic. Sclerae are white. Conjunctivae are pink. Oral mucosa is moist without lesions. LUNGS: Decent air entry. Rhonchi and crackles are both present. No wheezing or prolonged expiratory phase appreciated. HEART: Normal rate, regular. ABDOMEN: Soft, nontender, and nondistended. Bowel sounds are positive. MUSCULOSKELETAL: No cyanosis or clubbing. No pitting in the bilateral lower extremities. NEUROLOGIC: The patient has not had any significant change in neurologic function. LABORATORY DATA: WBC 17.8, hemoglobin 11.0, platelets 454,000. INR 1.0. Potassium 3.4. Basic metabolic profile is essentially unremarkable otherwise. Blood cultures x4 and urine culture x2 are unremarkable. ASSESSMENT: 1. Respiratory failure secondary to inability to protect airway, status post tracheostomy. 2. Intracranial hemorrhage with intraventricular extension, status post external ventricular drain. 3. Debility, devastating. 4. Hypertensive emergency. DISCUSSION AND PLAN: I will give the patient a dose of Lasix, and provide her with more p.o. antihypertensive medications. Potassium will be replaced today. Pulmonary Critical Care will continue to follow. She will need to remain in this location. Once the EVD drain is out and she is on all p.o. things, she can be considered for transition out of the hospital to a custodial facility or an LTAC. Job ID: [id number]
[2018-12-19] MEDS: levETIRAcetam 500 MG TAB PO SCH ×2 (08:22→20:16)
[2018-12-19] MEDS: Amlodipine 10 MG TAB PER TUBE SCH (08:22)
[2018-12-19] MEDS: cloNIDine 0.2 MG TAB PER TUBE SCH ×3 (08:22→20:15)
[2018-12-19] MEDS: Pantoprazole 40 MG GRANULES PACKET PER TUBE SCH (08:22)
[2018-12-19] MEDS: Labetalol 100 MG TAB PO SCH ×2 (08:22→20:14)
[2018-12-19] MEDS: Acetaminophen 650 MG/20.3 ML UDCUP PER TUBE PRN (08:53)
--- NOTE | 2018-12-19 09:04 | PRG ---
DATE OF SERVICE: 12/19/2018 Ms. Villarreal this morning is stable neurologically. We will go ahead and remove her EVD. There was discussion for how she will need to proceed with. We will continue to defer to our colleagues and Case Management for placement, but continue to follow. Job ID: [id number]
--- NOTE | 2018-12-19 10:19 | PDOC.PN ---
- Subjective Encounter Start Date: 12/19/18 Encounter Start Time: 10:17 -: Opens her eyes, not following commands... on sedation s/p tracheostomy.. - Objective Vital Signs & Weight: Vital Signs (12 hours) Temp Pulse Resp BP Pulse Ox 12/19/18 08:22 109 H 178/96 H 12/19/18 08:00 100.4 F H 12/19/18 07:00 100.4 F H 109 H 25 H 100 12/19/18 03:00 99.8 F H 12/19/18 02:18 92 178/96 H 12/19/18 00:01 92 10 L 100 12/18/18 23:00 99.9 F H Weight Admit Weight 246 lb 11.156 oz Weight 250 lb 14.177 oz Most Recent Monitor Data Heart Rate from ECG 107 NIBP 145/78 NIBP BP-Mean 100 Respiration from ECG 44 SpO2 98 I&O: 12/18/18 12/19/18 12/20/18 06:59 06:59 06:59 Intake Total 2611.6 3334 240 Output Total 3275 4160 1720 Balance -663.4 -826 -1480 Result Diagrams: 12/19/18 04:34 12/19/18 04:34 Phys Exam - Physical Examination Neck: no JVD Respiratory: clear to auscultation bilateral Cardiovascular: RRR Gastrointestinal: soft Musculoskeletal: no edema (Moves left side only..) Dx/Plan (1) Acute encephalopathy Code(s): G93.40 - ENCEPHALOPATHY, UNSPECIFIED Status: Acute Comment: Due to CVA. (2) Fever Code(s): R50.9 - FEVER, UNSPECIFIED Status: Acute Qualifiers: Fever type: unspecified Qualified Code(s): R50.9 - Fever, unspecified Comment: Possibly central. Cultures negative. Consider DC antibiotics in few days.. (3) Hypertensive emergency Code(s): I16.1 - HYPERTENSIVE EMERGENCY Status: Acute Comment: BP controlled.. (4) ICH (intracerebral hemorrhage) Code(s): I61.9 - NONTRAUMATIC INTRACEREBRAL HEMORRHAGE, UNSPECIFIED Status: Acute Qualifiers: Intracerebral hemorrhage etiology: nontraumatic Laterality: left Comment: left thalamic with extension, edema, s/p EVD (5) Obesity Code(s): E66.9 - OBESITY, UNSPECIFIED Status: Chronic Qualifiers: Obesity classification: adult class 3 (BMI >= 40) Body mass index: BMI 40.0 -44.9 - Plan -: Continue supportive therapy.. -: will need LTAC .. * .
[2018-12-20] MEDS: Acetaminophen 650 MG/20.3 ML UDCUP PER TUBE PRN ×4 (00:03→22:08)
[2018-12-20] MEDS: Morphine 2 MG/ML SYRINGE SLOW IVP PRN ×5 (01:07→23:54)
[2018-12-20 05:08] LABS: Anion Gap 15 mmol/L (10-20); BUN (Urea Nitrogen) 26 mg/dL (7.0-18.7); Calc. Creatinine Clearance 133 mL/min (70-130); Calcium 9.2 mg/dL (7.8-10.44); Carbon Dioxide 22 mmol/L (22-29); Chloride 108 mmol/L (98-107); Estimated GFR-MDRD 77; Glucose 129 mg/dL (70-105); Magnesium 2.4 mg/dL (1.6-2.6); Phosphorus 3.8 mg/dL (2.3-4.7); Sodium 141 mmol/L (136-145)
[2018-12-20 05:49] LABS: #Eosinphils 0.3 thou/uL (0.0-0.7); #Lymphocytes 2.2 thou/uL (1.20-3.40); #Monocytes 1.7 thou/uL (0.11-0.59); #Neutrophils 10.4 thou/uL (1.40-6.50); %Basophils 0.3 % (0.0-1.0); %Eosinophils 2.2 % (0.0-10.0); %Lymphocytes 15.2 % (21.0-51.0); %Monocytes 11.8 % (0.0-10.0); %Neutrophils 70.6 % (42.0-75.0); Anisocytosis SLIGHT = 6-15 cells (100X) (0-5/hpf); Hemoglobin 9.8 g/dL (12.0-16.0); MDiff Complete? YES; Mean Corpuscular HGB CONC 32.1 g/dL (32.0-36.0); Mean Corpuscular Hemoglobin 28.4 pg (27.0-31.0); Mean Corpuscular Volume 88.7 fL (78.0-98.0); Mean Platelet Volume 8.8 fL (7.4-10.4); Platelet Count 466 thou/uL (130-400); RBC Distribution Width 14.9 % (11.5-14.5); Red Blood Cell (RBC) Count 3.44 mill/uL (4.20-5.40); White Blood Cell (WBC) Count 14.8 thou/uL (4.8-10.8)
[2018-12-20] MEDS ORDERED: Furosemide 20 MG/2 ML VIAL SLOW IVP SCH (06:00)
[2018-12-20] MEDS: Piperacillin/Tazobactam 3.375 GM in Sodium Chloride 0.9% 100 ML IVPB SCH (06:21)
--- NOTE | 2018-12-20 08:05 | PRG ---
DATE OF SERVICE: 12/20/2018 SUBJECTIVE: She has been transferred to the floor over the weekend, actually is beginning to look around a track. OBJECTIVE: VITAL SIGNS: On exam, temperature is 99.8, pulse 92, blood pressure 135/88. 24-hour intake 3334, output 4160, weight 250 pounds. HEENT: Eyes slightly deviated to the left, but she does blink to threat. Oropharynx clear. Trach site clean. CARDIAC: S1 and S2, regular. LUNGS: Clear anteriorly. ABDOMEN: Soft, nontender. EXTREMITIES: Trace edema throughout. LABORATORY DATA: White blood cell count 14.8, hematocrit 30.5, and platelet count 466. Sodium 141, potassium 4, chloride 108, CO2 of 22, BUN 26, creatinine 0.9, glucose 129. ASSESSMENT: 1. Status post acute respiratory failure, requiring mechanical ventilation and subsequent tracheostomy. 2. Intracranial hemorrhage with intraventricular extension. 3. Severe disability. 4. Hypertension. PLAN: Main issue now is placement. I think, she will require LTAC and extensive rehabilitation. I will go ahead and stop the Zosyn since she has had more than enough antibiotics. She is on amlodipine, clonidine, and labetalol for management of her blood pressure. Physical therapy is being consulted. Job ID: [id number]
[2018-12-20] MEDS: Pantoprazole 40 MG GRANULES PACKET PER TUBE SCH (08:28)
[2018-12-20] MEDS: Labetalol 100 MG TAB PO SCH ×2 (08:28→20:52)
[2018-12-20] MEDS: levETIRAcetam 500 MG TAB PO SCH (08:28)
[2018-12-20] MEDS: cloNIDine 0.2 MG TAB PER TUBE SCH ×3 (08:28→20:52)
[2018-12-20] MEDS: Amlodipine 10 MG TAB PER TUBE SCH (08:29)
[2018-12-20] MEDS: hydrALAZINE 20 MG/ML VIAL SLOW IVP PRN ×2 (08:31→16:05)
--- NOTE | 2018-12-20 11:05 | PDOC.PN ---
- Subjective Encounter Start Date: 12/20/18 Encounter Start Time: 11:03 -: non-verbal Subjective: no distress - Objective MAR Reviewed: Yes Vital Signs & Weight: Vital Signs (12 hours) Temp Pulse Resp BP Pulse Ox 12/20/18 08:31 100 181/120 H 12/20/18 08:29 100 183/110 H 12/20/18 08:28 93 183/110 H 12/20/18 08:00 99 12/20/18 07:38 100 12/20/18 07:37 93 24 H 100 12/20/18 07:17 99.8 F H 12/20/18 06:48 105 H 198/120 H 12/20/18 00:04 93 27 H 100 12/19/18 23:47 99.6 F Weight Admit Weight 246 lb 11.156 oz Weight 251 lb 14.4 oz Most Recent Monitor Data Heart Rate from ECG 100 NIBP 148/88 NIBP BP-Mean 108 Respiration from ECG 31 SpO2 100 I&O: 12/19/18 12/20/18 12/21/18 06:59 06:59 06:59 Intake Total 3334 532 60 Output Total 4160 2890 Balance -990 -8418 60 Result Diagrams: 12/20/18 04:12 12/20/18 04:12 Phys Exam - Physical Examination Neck: no JVD Respiratory: clear to auscultation bilateral Cardiovascular: RRR, no significant murmur Gastrointestinal: soft, positive bowel sounds PEG Musculoskeletal: edema present Dx/Plan (1) Acute encephalopathy Code(s): G93.40 - ENCEPHALOPATHY, UNSPECIFIED Status: Acute Comment: Due to CVA. (2) Hyperglycemia Code(s): R73.9 - HYPERGLYCEMIA, UNSPECIFIED Status: Acute Comment: stable now (3) Hypertensive emergency Code(s): I16.1 - HYPERTENSIVE EMERGENCY Status: Acute Comment: BP controlled.. (4) ICH (intracerebral hemorrhage) Code(s): I61.9 - NONTRAUMATIC INTRACEREBRAL HEMORRHAGE, UNSPECIFIED Status: Acute Qualifiers: Intracerebral hemorrhage etiology: nontraumatic Laterality: left Comment: left thalamic with extension, edema, s/p EVD - Plan meds , nutrition -PEG -: cont accu -: on amlodipine, clonidine, labetolol -: LTAC referral * .
[2018-12-20] MEDS: levETIRAcetam 500 mg/5 ml Oral Solution PO SCH (21:15)
[2018-12-21] MEDS: hydrALAZINE 20 MG/ML VIAL SLOW IVP PRN (04:11)
[2018-12-21] MEDS: Morphine 2 MG/ML SYRINGE SLOW IVP PRN ×2 (04:53→06:57)
[2018-12-21 05:05] LABS: #Eosinphils 0.3 thou/uL (0.0-0.7); #Lymphocytes 2.6 thou/uL (1.20-3.40); #Monocytes 2.1 thou/uL (0.11-0.59); %Basophils 0.2 % (0.0-1.0); %Eosinophils 1.5 % (0.0-10.0); %Lymphocytes 14.3 % (21.0-51.0); %Monocytes 11.7 % (0.0-10.0); %Neutrophils 72.3 % (42.0-75.0); Hemoglobin 10.5 g/dL (12.0-16.0); Mean Corpuscular HGB CONC 31.7 g/dL (32.0-36.0); Mean Corpuscular Hemoglobin 27.9 pg (27.0-31.0); Mean Corpuscular Volume 88.1 fL (78.0-98.0); Mean Platelet Volume 8.9 fL (7.4-10.4); Platelet Count 610 thou/uL (130-400); RBC Distribution Width 15.1 % (11.5-14.5); Red Blood Cell (RBC) Count 3.76 mill/uL (4.20-5.40); White Blood Cell (WBC) Count 17.9 thou/uL (4.8-10.8)
[2018-12-21] MEDS: Acetaminophen 650 MG/20.3 ML UDCUP PER TUBE PRN ×2 (05:11→14:15)
[2018-12-21 05:25] LABS: Anion Gap 13 mmol/L (10-20); BUN (Urea Nitrogen) 26 mg/dL (7.0-18.7); Calc. Creatinine Clearance 126 mL/min (70-130); Calcium 9.6 mg/dL (7.8-10.44); Carbon Dioxide 26 mmol/L (22-29); Chloride 105 mmol/L (98-107); Estimated GFR-MDRD 71; Glucose 128 mg/dL (70-105); Potassium 4.1 mmol/L (3.5-5.1); Sodium 140 mmol/L (136-145)
[2018-12-21] MEDS: levETIRAcetam 500 mg/5 ml Oral Solution PO SCH ×2 (08:12→21:26)
[2018-12-21] MEDS: Pantoprazole 40 MG GRANULES PACKET PER TUBE SCH (08:12)
[2018-12-21] MEDS: Labetalol 100 MG TAB PO SCH ×2 (08:12→20:21)
[2018-12-21] MEDS: cloNIDine 0.2 MG TAB PER TUBE SCH ×3 (08:12→20:20)
[2018-12-21] MEDS: Amlodipine 10 MG TAB PER TUBE SCH (08:12)
--- NOTE | 2018-12-21 09:30 | PRG ---
DATE OF SERVICE: 12/21/2018 SUBJECTIVE: Ms. Villarreal has begun to follow commands on the left. She squeezes hand, hold up two fingers, and also moves her leg. OBJECTIVE: VITAL SIGNS: Temperature is 100, pulse 93, and blood pressure 153/88. A 24-hour intake 1200, output 2225. HEENT: Unremarkable. NECK: Trach in good position. LUNGS: Coarse breath sounds. CARDIAC: S1, S2. Regular. ABDOMEN: Soft. EXTREMITIES: Trace edema. LABORATORY DATA: White blood cell count 17.9, hematocrit 33.1, and platelet count 610. Sodium 140, potassium 4.1, chloride 105, CO2 of 26, BUN 26, creatinine 1.0, and glucose 128. ASSESSMENT: 1. Status post hemorrhagic thalamic stroke. 2. Status post acute respiratory failure requiring mechanical ventilation and tracheostomy placement. 3. Severe disability. 4. Hypertension. PLAN: 1. She is currently off antibiotics. White blood cell count is a little high, but she is not showing any overt signs of infection. 2. I think we need to proceed with LTAC placement. Neurologic rehab is the main focus. 3. Continue aggressive blood pressure control. Job ID: [id number]
--- NOTE | 2018-12-21 09:46 | PDOC.PN ---
- Subjective Encounter Start Date: 12/21/18 Encounter Start Time: 09:45 -: non-verbal - Objective MAR Reviewed: Yes Vital Signs & Weight: Vital Signs (12 hours) Temp Pulse Resp BP Pulse Ox 12/21/18 08:12 101 H 160/76 H 12/21/18 07:21 100.0 F H 12/21/18 07:15 101 H 25 H 100 12/21/18 05:33 108 H 160/76 H 12/21/18 04:11 100.4 F H 85 155/94 H 12/21/18 00:04 100.2 F H 12/20/18 23:57 96 170/86 H 12/20/18 23:45 97 30 H 100 12/20/18 22:49 116 H 188/107 H Weight Admit Weight 246 lb 11.156 oz Weight 251 lb 5.231 oz Most Recent Monitor Data Heart Rate from ECG 93 NIBP 153/88 NIBP BP-Mean 109 Respiration from ECG 21 SpO2 100 I&O: 12/20/18 12/21/18 12/22/18 06:59 06:59 06:59 Intake Total 532 1200 Output Total 2890 9559 Balance -1718 -7185 Result Diagrams: 12/21/18 04:50 12/21/18 04:50 Phys Exam - Physical Examination Neck: no JVD Respiratory: clear to auscultation bilateral Cardiovascular: RRR, no significant murmur Gastrointestinal: soft, positive bowel sounds Musculoskeletal: edema present eyes dev to L, moves L side Dx/Plan (1) Acute encephalopathy Code(s): G93.40 - ENCEPHALOPATHY, UNSPECIFIED Status: Acute Comment: Due to CVA. (2) Hyperglycemia Code(s): R73.9 - HYPERGLYCEMIA, UNSPECIFIED Status: Acute Comment: stable now (3) Hypertensive emergency Code(s): I16.1 - HYPERTENSIVE EMERGENCY Status: Acute Comment: BP controlled.. (4) ICH (intracerebral hemorrhage) Code(s): I61.9 - NONTRAUMATIC INTRACEREBRAL HEMORRHAGE, UNSPECIFIED Status: Acute Qualifiers: Intracerebral hemorrhage etiology: nontraumatic Laterality: left Comment: left thalamic with extension, edema, s/p EVD - Plan accu cont 100-150 -: add apresoline 25 bid for HTN, cont prns -: LTAC pending, CM involved * .
[2018-12-21] MEDS ORDERED: hydrALAZINE 25 MG TAB PER TUBE SCH (10:15)
[2018-12-21 17:08] LABS: #Basophils 0.1 thou/uL (0.0-0.2); #Eosinphils 0.2 thou/uL (0.0-0.7); #Lymphocytes 1.9 thou/uL (1.20-3.40); #Monocytes 1.5 thou/uL (0.11-0.59); #Neutrophils 11.8 thou/uL (1.40-6.50); %Basophils 0.5 % (0.0-1.0); %Eosinophils 1.2 % (0.0-10.0); %Lymphocytes 12.3 % (21.0-51.0); %Monocytes 9.7 % (0.0-10.0); %Neutrophils 76.3 % (42.0-75.0); Hemoglobin 10.4 g/dL (12.0-16.0); Mean Corpuscular HGB CONC 30.8 g/dL (32.0-36.0); Mean Corpuscular Hemoglobin 27.9 pg (27.0-31.0); Mean Corpuscular Volume 90.6 fL (78.0-98.0); Mean Platelet Volume 8.6 fL (7.4-10.4); Platelet Count 482 thou/uL (130-400); RBC Distribution Width 15.4 % (11.5-14.5); Red Blood Cell (RBC) Count 3.75 mill/uL (4.20-5.40); White Blood Cell (WBC) Count 15.5 thou/uL (4.8-10.8)
[2018-12-21] MEDS: hydrALAZINE 25 MG TAB PER TUBE SCH (20:20)
[2018-12-22] MEDS: Morphine 2 MG/ML SYRINGE SLOW IVP PRN ×2 (03:15→06:08)
[2018-12-22 05:22] LABS: #Basophils 0.1 thou/uL (0.0-0.2); #Eosinphils 0.2 thou/uL (0.0-0.7); #Lymphocytes 2.2 thou/uL (1.20-3.40); #Monocytes 1.3 thou/uL (0.11-0.59); #Neutrophils 12.3 thou/uL (1.40-6.50); %Basophils 0.6 % (0.0-1.0); %Eosinophils 1.2 % (0.0-10.0); %Lymphocytes 13.7 % (21.0-51.0); %Monocytes 8.3 % (0.0-10.0); %Neutrophils 76.2 % (42.0-75.0); Mean Corpuscular Hemoglobin 27.8 pg (27.0-31.0); Mean Corpuscular Volume 89.8 fL (78.0-98.0); Mean Platelet Volume 8.5 fL (7.4-10.4); Platelet Count 498 thou/uL (130-400); RBC Distribution Width 15.1 % (11.5-14.5); Red Blood Cell (RBC) Count 3.61 mill/uL (4.20-5.40); White Blood Cell (WBC) Count 16.1 thou/uL (4.8-10.8)
[2018-12-22 05:39] LABS: Anion Gap 13 mmol/L (10-20); BUN (Urea Nitrogen) 26 mg/dL (7.0-18.7); Calc. Creatinine Clearance 144 mL/min (70-130); Calcium 9.4 mg/dL (7.8-10.44); Carbon Dioxide 26 mmol/L (22-29); Chloride 110 mmol/L (98-107); Estimated GFR-MDRD 85; Glucose 150 mg/dL (70-105); Potassium 3.7 mmol/L (3.5-5.1); Sodium 145 mmol/L (136-145)
[2018-12-22] MEDS: hydrALAZINE 20 MG/ML VIAL SLOW IVP PRN (07:07)
[2018-12-22] MEDS: cloNIDine 0.2 MG TAB PER TUBE SCH ×3 (08:13→21:35)
[2018-12-22] MEDS: levETIRAcetam 500 mg/5 ml Oral Solution PO SCH ×2 (08:13→21:34)
[2018-12-22] MEDS: Amlodipine 10 MG TAB PER TUBE SCH (08:13)
[2018-12-22] MEDS: hydrALAZINE 25 MG TAB PER TUBE SCH (08:13)
[2018-12-22] MEDS: Labetalol 100 MG TAB PO SCH ×2 (08:13→21:35)
[2018-12-22] MEDS: Pantoprazole 40 MG GRANULES PACKET PER TUBE SCH (08:14)
--- NOTE | 2018-12-22 08:52 | PDOC.PN ---
- Subjective Encounter Start Date: 12/22/18 Encounter Start Time: 08:52 -: non-verbal - Objective MAR Reviewed: Yes Vital Signs & Weight: Vital Signs (12 hours) Temp Pulse Resp BP Pulse Ox 12/22/18 08:29 90 22 H 100 12/22/18 08:13 92 173/84 H 12/22/18 07:07 99.4 F 92 173/84 H 12/22/18 06:49 92 199/114 H 12/22/18 04:11 99.3 F 12/22/18 03:36 90 179/109 H 12/22/18 02:30 99 181/110 H 12/22/18 00:03 99.9 F H 12/21/18 23:17 82 24 H 100 Weight Admit Weight 246 lb 11.156 oz Weight 248 lb 10.903 oz Most Recent Monitor Data Heart Rate from ECG 83 NIBP 154/88 NIBP BP-Mean 110 Respiration from ECG 19 SpO2 100 I&O: 12/21/18 12/22/18 12/23/18 06:59 06:59 06:59 Intake Total 1200 2100 Output Total 2225 2100 Balance -1025 0 Result Diagrams: 12/22/18 05:05 12/22/18 05:05 Phys Exam - Physical Examination Neck: no JVD Respiratory: clear to auscultation bilateral Cardiovascular: RRR, no significant murmur Gastrointestinal: soft, non-tender, positive bowel sounds PEG Musculoskeletal: edema present Dx/Plan (1) Acute encephalopathy Code(s): G93.40 - ENCEPHALOPATHY, UNSPECIFIED Status: Acute Comment: Due to CVA. (2) Hyperglycemia Code(s): R73.9 - HYPERGLYCEMIA, UNSPECIFIED Status: Acute Comment: stable now (3) Hypertensive emergency Code(s): I16.1 - HYPERTENSIVE EMERGENCY Status: Acute Comment: BP labile (4) ICH (intracerebral hemorrhage) Code(s): I61.9 - NONTRAUMATIC INTRACEREBRAL HEMORRHAGE, UNSPECIFIED Status: Acute Qualifiers: Intracerebral hemorrhage etiology: nontraumatic Laterality: left Comment: left thalamic with extension, edema, s/p EVD - Plan increase hydralazine to 50 tid -: cont amlodipine, clonidine, labetolol -: cont prn iv antihypertensives * .
--- NOTE | 2018-12-22 10:17 | PRG ---
DATE OF SERVICE: 12/22/2018 SUBJECTIVE: The patient is doing reasonably well. Blood pressure has been somewhat labile. OBJECTIVE: VITAL SIGNS: Temperature is 99.4 with T-max of 101.6 yesterday, pulse 90, respirations 20, O2 saturation 100%. HEENT: Unremarkable. NECK: Trach in good position. LUNGS: Clear. CARDIAC: S1, S2. Regular. ABDOMEN: Soft. EXTREMITIES: No edema. LABORATORY DATA: White blood cell count 16.1, hemoglobin 10, hematocrit 32.4, and platelet count 498. Sodium 145, potassium 3.7, chloride 110, CO2 of 26, BUN 26, creatinine 0.8, glucose 115. ASSESSMENT: 1. Status post thalamic bleed. 2. Continued low-grade intermittent fevers. 3. Severe disability. 4. Hypertension. PLAN: 1. It is hard to be too aggressive with her blood pressure because she does drop low at times. 2. If fever spikes continue, we will need to consider re-culturing. 3. Main issue now is placement. Job ID: [id number]
[2018-12-22] MEDS: hydrALAZINE 25 MG TAB PO SCH ×3 (14:57→21:35)
[2018-12-22] MEDS: Acetaminophen 650 MG/20.3 ML UDCUP PER TUBE PRN (15:57)
[2018-12-23 05:59] LABS: #Eosinphils 0.2 thou/uL (0.0-0.7); #Lymphocytes 2.2 thou/uL (1.20-3.40); #Monocytes 1.5 thou/uL (0.11-0.59); %Basophils 0.3 % (0.0-1.0); %Eosinophils 1.6 % (0.0-10.0); %Lymphocytes 15.5 % (21.0-51.0); %Neutrophils 71.6 % (42.0-75.0); Hemoglobin 10.3 g/dL (12.0-16.0); Mean Corpuscular HGB CONC 31.1 g/dL (32.0-36.0); Mean Corpuscular Hemoglobin 28.2 pg (27.0-31.0); Mean Corpuscular Volume 90.6 fL (78.0-98.0); Mean Platelet Volume 8.7 fL (7.4-10.4); Platelet Count 501 thou/uL (130-400); RBC Distribution Width 15.7 % (11.5-14.5); Red Blood Cell (RBC) Count 3.65 mill/uL (4.20-5.40); White Blood Cell (WBC) Count 13.9 thou/uL (4.8-10.8)
[2018-12-23 06:22] LABS: Anion Gap 15 mmol/L (10-20); BUN (Urea Nitrogen) 25 mg/dL (7.0-18.7); Calc. Creatinine Clearance 124 mL/min (70-130); Calcium 9.8 mg/dL (7.8-10.44); Carbon Dioxide 24 mmol/L (22-29); Chloride 111 mmol/L (98-107); Estimated GFR-MDRD 71; Glucose 169 mg/dL (70-105); Potassium 3.6 mmol/L (3.5-5.1); Sodium 146 mmol/L (136-145)
--- NOTE | 2018-12-23 08:26 | PDOC.PN ---
- Subjective Encounter Start Date: 12/23/18 Encounter Start Time: 08:25 Subjective: opens eyes to stimuli - Objective MAR Reviewed: Yes Vital Signs & Weight: Vital Signs (12 hours) Temp Pulse Resp BP Pulse Ox 12/23/18 07:39 99 12/23/18 07:36 95 21 H 99 12/23/18 07:26 100.0 F H 12/23/18 03:50 99.6 F 12/23/18 00:00 98.6 F 12/22/18 23:46 95 27 H 100 12/22/18 21:35 108 H 171/93 H Weight Admit Weight 245 lb 9.519 oz Weight 243 lb 2.718 oz Most Recent Monitor Data Heart Rate from ECG 107 NIBP 188/104 NIBP BP-Mean 132 Respiration from ECG 23 SpO2 100 I&O: 12/22/18 12/23/18 12/24/18 06:59 06:59 06:59 Intake Total 2100 1680 Output Total 2100 2300 Balance 0 -620 Result Diagrams: 12/23/18 05:34 12/23/18 05:34 Phys Exam - Physical Examination Neck: no JVD Respiratory: clear to auscultation bilateral Cardiovascular: RRR, no significant murmur Gastrointestinal: soft, non-tender Musculoskeletal: edema present Dx/Plan (1) Acute encephalopathy Code(s): G93.40 - ENCEPHALOPATHY, UNSPECIFIED Status: Acute Comment: Due to CVA. (2) Hyperglycemia Code(s): R73.9 - HYPERGLYCEMIA, UNSPECIFIED Status: Acute Comment: stable now (3) Hypertensive emergency Code(s): I16.1 - HYPERTENSIVE EMERGENCY Status: Acute Comment: BP labile (4) ICH (intracerebral hemorrhage) Code(s): I61.9 - NONTRAUMATIC INTRACEREBRAL HEMORRHAGE, UNSPECIFIED Status: Acute Qualifiers: Intracerebral hemorrhage etiology: nontraumatic Laterality: left Comment: left thalamic with extension, edema, s/p EVD - Plan post trach and PEG -: low grade temp, no source -: BP adequately controlled -: LTAC pending * .
--- NOTE | 2018-12-23 08:53 | PRG ---
DATE OF SERVICE: 12/23/2018 SUBJECTIVE: Ms. Villarreal is little less responsive than she was yesterday. OBJECTIVE: VITAL SIGNS: Temperature is 100 with T-max of 100.6, pulse 107, blood pressure 188/104. Intake 16/80, output 23/100. HEENT: Unchanged. NECK: Trach with clear secretions. LUNGS: Clear. CARDIAC: S1, S2. Regular. ABDOMEN: Soft. EXTREMITIES: Edematous. LABORATORY DATA: White blood cell count 13.9, hematocrit 33, platelet count 501. Sodium 146, potassium 3.6, chloride 111, CO2 of 24, BUN 25, creatinine 1.0, glucose 169. ASSESSMENT: 1. Status post thalamic bleed. 2. Status post respiratory failure requiring tracheostomy placement. 3. Slowly increasing sodium. 4. Low-grade intermittent fevers. PLAN: 1. Increase the amount of free water in the tube feeds. 2. Discontinue daily CBC. 3. Work on placement. Job ID: [id number]
[2018-12-23] MEDS: Acetaminophen 650 MG/20.3 ML UDCUP PER TUBE PRN (09:04)
[2018-12-23] MEDS: levETIRAcetam 500 mg/5 ml Oral Solution PO SCH ×2 (09:04→20:44)
[2018-12-23] MEDS: Labetalol 100 MG TAB PO SCH ×2 (09:04→20:44)
[2018-12-23] MEDS: hydrALAZINE 25 MG TAB PO SCH ×3 (09:05→20:44)
[2018-12-23] MEDS: Pantoprazole 40 MG GRANULES PACKET PER TUBE SCH (09:05)
[2018-12-23] MEDS: Amlodipine 10 MG TAB PER TUBE SCH (09:05)
[2018-12-23] MEDS: cloNIDine 0.2 MG TAB PER TUBE SCH ×3 (09:06→20:43)
[2018-12-23] MEDS: Morphine 2 MG/ML SYRINGE SLOW IVP PRN ×2 (09:08→18:06)
[2018-12-23] MEDS ORDERED: Sodium Chloride 0.9% 15 ML NEB ONE (17:38)
[2018-12-23] MEDS: hydrALAZINE 20 MG/ML VIAL SLOW IVP PRN (18:07)
[2018-12-23] MEDS ORDERED: Sodium Bicarbonate Tab 325 MG TAB PER TUBE PRN (23:05)
[2018-12-23] MEDS ORDERED: Pancrelipase DR 12000 1 CAP FS PRN (23:05)
[2018-12-24] MEDS: hydrALAZINE 20 MG/ML VIAL SLOW IVP PRN (04:37)
[2018-12-24 05:20] LABS: Anion Gap 12 mmol/L (10-20); BUN (Urea Nitrogen) 22 mg/dL (7.0-18.7); Calc. Creatinine Clearance 125 mL/min (70-130); Calcium 9.9 mg/dL (7.8-10.44); Carbon Dioxide 28 mmol/L (22-29); Chloride 108 mmol/L (98-107); Estimated GFR-MDRD 74; Glucose 151 mg/dL (70-105); Potassium 3.9 mmol/L (3.5-5.1); Sodium 144 mmol/L (136-145)
--- NOTE | 2018-12-24 08:30 | PDOC.PN ---
- Subjective Encounter Start Date: 12/24/18 Encounter Start Time: 08:28 -: non-verbal - Objective MAR Reviewed: Yes Vital Signs & Weight: Vital Signs (12 hours) Temp Pulse Resp BP Pulse Ox 12/24/18 07:48 98 20 100 12/24/18 04:37 101 H 202/115 H 12/24/18 03:53 98.5 F 12/24/18 00:13 90 24 H 100 12/23/18 23:46 98.5 F 12/23/18 20:44 86 12/23/18 20:43 159/78 H Weight Admit Weight 245 lb 9.519 oz Weight 238 lb 12.17 oz Most Recent Monitor Data Heart Rate from ECG 89 NIBP 151/90 NIBP BP-Mean 110 Respiration from ECG 23 SpO2 100 I&O: 12/23/18 12/24/18 12/25/18 06:59 06:59 06:59 Intake Total 1680 2961 120 Output Total 2300 1700 Balance -620 1261 120 Result Diagrams: 12/23/18 05:34 12/24/18 04:54 Phys Exam - Physical Examination Neck: no JVD Respiratory: clear to auscultation bilateral Cardiovascular: RRR, no significant murmur Gastrointestinal: soft, positive bowel sounds Musculoskeletal: no edema non-verbal, no responce to verbal stimuli Dx/Plan (1) Acute encephalopathy Code(s): G93.40 - ENCEPHALOPATHY, UNSPECIFIED Status: Acute Comment: Due to CVA. (2) Hyperglycemia Code(s): R73.9 - HYPERGLYCEMIA, UNSPECIFIED Status: Acute Comment: stable now (3) Hypertensive emergency Code(s): I16.1 - HYPERTENSIVE EMERGENCY Status: Acute Comment: BP labile (4) ICH (intracerebral hemorrhage) Code(s): I61.9 - NONTRAUMATIC INTRACEREBRAL HEMORRHAGE, UNSPECIFIED Status: Acute Qualifiers: Intracerebral hemorrhage etiology: nontraumatic Laterality: left Comment: left thalamic with extension, edema, s/p EVD - Plan post PEG/ TRach -: awaiting placement -: cont antihypertensives, etc * .
--- NOTE | 2018-12-24 08:57 | PRG ---
DATE OF SERVICE: 12/24/2018 SUBJECTIVE: She is much more awake today than she was yesterday. She is able to follow commands and moving the left side. She is also tracking with her eyes very well. OBJECTIVE: VITAL SIGNS: On exam, her temperature is 98.5, pulse 89, and blood pressure 151/90. She does have spurious spikes in her blood pressure. A 24-hour intake 2961, output 1700. HEENT: Unremarkable. NECK: Trach in good position. LUNGS: Coarse breath sounds. CARDIAC: S1 and S2, regular. ABDOMEN: Soft and nontender. EXTREMITIES: Slight edema throughout. LABORATORY DATA: Sodium 144, potassium 3.9, chloride 108, CO2 of 28, BUN 22, creatinine 0.9, and glucose 151. ASSESSMENT: 1. Status post thalamic bleed. 2. Status post respiratory failure, requiring tracheostomy placement. 3. Improved fever curve. PLAN: I will put her on scopolamine patch to see if we can minimize the secretions. She is on numerous antihypertensive medications being managed by the hospitalist group. Main issue now is placement, which may be difficult. Job ID: [id number]
[2018-12-24] MEDS: Amlodipine 10 MG TAB PER TUBE SCH (09:12)
[2018-12-24] MEDS: cloNIDine 0.2 MG TAB PER TUBE SCH ×3 (09:12→21:02)
[2018-12-24] MEDS: Labetalol 100 MG TAB PO SCH ×2 (09:12→21:02)
[2018-12-24] MEDS: Pantoprazole 40 MG GRANULES PACKET PER TUBE SCH (09:13)
[2018-12-24] MEDS: hydrALAZINE 25 MG TAB PO SCH ×3 (09:13→21:02)
[2018-12-24] MEDS: Scopolamine 1.5 mg/72 hour Patch TD SCH (09:13)
[2018-12-24] MEDS: levETIRAcetam 500 mg/5 ml Oral Solution PO SCH ×2 (09:13→21:02)
[2018-12-25 05:39] LABS: Anion Gap 11 mmol/L (10-20); BUN (Urea Nitrogen) 21 mg/dL (7.0-18.7); Calc. Creatinine Clearance 132 mL/min (70-130); Calcium 9.7 mg/dL (7.8-10.44); Carbon Dioxide 28 mmol/L (22-29); Chloride 108 mmol/L (98-107); Estimated GFR-MDRD 81; Glucose 148 mg/dL (70-105); Potassium 3.4 mmol/L (3.5-5.1); Sodium 144 mmol/L (136-145)
[2018-12-25] MEDS: cloNIDine 0.2 MG TAB PER TUBE SCH ×3 (09:18→20:53)
[2018-12-25] MEDS: Amlodipine 10 MG TAB PER TUBE SCH (09:18)
[2018-12-25] MEDS: hydrALAZINE 25 MG TAB PO SCH ×3 (09:18→20:53)
[2018-12-25] MEDS: levETIRAcetam 500 mg/5 ml Oral Solution PO SCH ×2 (09:18→20:54)
[2018-12-25] MEDS: Labetalol 100 MG TAB PO SCH ×2 (09:18→20:54)
[2018-12-25] MEDS: Pantoprazole 40 MG GRANULES PACKET PER TUBE SCH (09:19)
--- NOTE | 2018-12-25 09:35 | PDOC.PN ---
- Subjective Encounter Start Date: 12/25/18 Encounter Start Time: 09:34 Patient seen and examined, per nursing staff patient has made good improvement on a day to day basis, no family at bedside. - Objective Vital Signs & Weight: Vital Signs (12 hours) Temp Pulse Resp BP Pulse Ox 12/25/18 09:18 94 12/25/18 07:47 100 12/25/18 07:21 94 16 98 12/25/18 06:00 20 12/25/18 04:08 99.0 F 12/25/18 00:30 86 17 100 12/25/18 00:25 97.4 F L 12/25/18 00:05 162/106 H Weight Admit Weight 245 lb 9.519 oz Weight 241 lb 2.971 oz Most Recent Monitor Data Heart Rate from ECG 101 NIBP 237/137 NIBP BP-Mean 170 Respiration from ECG 20 SpO2 100 I&O: 12/24/18 12/25/18 12/26/18 06:59 06:59 06:59 Intake Total 2961 3200 120 Output Total 1700 2150 Balance 1261 1050 120 Result Diagrams: 12/23/18 05:34 12/25/18 04:55 Additional Labs: Accuchecks 12/24/18 12/24/18 12/24/18 20:01 16:09 10:16 POC Glucose 155 H 152 H 147 H Phys Exam - Physical Examination Constitutional: NAD HEENT: PERRLA, moist MMs Neck: no nodes, no JVD, supple Respiratory: no wheezing, no rales, no rhonchi +trach Cardiovascular: RRR, no significant murmur, no rub Gastrointestinal: soft, non-tender, no distention +PEG tube site Musculoskeletal: no edema, edema present Dx/Plan (1) Acute encephalopathy Code(s): G93.40 - ENCEPHALOPATHY, UNSPECIFIED Status: Acute Comment: Due to CVA. (2) Hypertensive emergency Code(s): I16.1 - HYPERTENSIVE EMERGENCY Status: Acute Comment: BP labile (3) ICH (intracerebral hemorrhage) Code(s): I61.9 - NONTRAUMATIC INTRACEREBRAL HEMORRHAGE, UNSPECIFIED Status: Acute Qualifiers: Intracerebral hemorrhage etiology: nontraumatic Laterality: left Comment: left thalamic with extension, edema, s/p EVD (4) Obesity Code(s): E66.9 - OBESITY, UNSPECIFIED Status: Chronic Qualifiers: Obesity classification: adult class 3 (BMI >= 40) Body mass index: BMI 40.0 -44.9 - Plan * patient appears to have significant edema, will start diuretics, this will also help with BP * continue current tube feeds and current medical management * pending placement for now * no other changes in plan of care * labs QOD for now * no family at bedside
--- NOTE | 2018-12-25 12:20 | PRG ---
DATE OF SERVICE: 12/25/2018 SUBJECTIVE: Madison Villarreal is status post thalamic bleed, respiratory failure, status post trach, foul-smelling discharge from the trach site. OBJECTIVE: VITAL SIGNS: Maximum temperature is 99. Pulse 94, blood pressure 130/80, respiratory rate 18. CHEST: Rhonchi. CARDIAC: Normal S1 and S2. No gallops. ABDOMEN: No masses. LABORATORY DATA: Lytes are normal. IMPRESSION: Status post cerebrovascular accident, status post tracheostomy secretions. PLAN: Continue supportive care, eventually placement. Job ID: [id number]
[2018-12-25] MEDS: Furosemide 40 MG/4 ML VIAL SLOW IVP SCH (14:13)
[2018-12-26] MEDS: Furosemide 40 MG/4 ML VIAL SLOW IVP SCH ×2 (05:40→15:12)
[2018-12-26 07:33] LABS: Anion Gap 16 mmol/L (10-20); BUN (Urea Nitrogen) 24 mg/dL (7.0-18.7); Calc. Creatinine Clearance 124 mL/min (70-130); Calcium 9.8 mg/dL (7.8-10.44); Carbon Dioxide 27 mmol/L (22-29); Chloride 103 mmol/L (98-107); Estimated GFR-MDRD 75; Glucose 130 mg/dL (70-105); Potassium 3.3 mmol/L (3.5-5.1); Sodium 143 mmol/L (136-145)
[2018-12-26] MEDS: Labetalol 100 MG TAB PO SCH ×2 (09:03→20:13)
[2018-12-26] MEDS: cloNIDine 0.2 MG TAB PER TUBE SCH ×3 (09:03→20:12)
[2018-12-26] MEDS: levETIRAcetam 500 mg/5 ml Oral Solution PO SCH ×2 (09:03→20:13)
[2018-12-26] MEDS: Amlodipine 10 MG TAB PER TUBE SCH (09:03)
[2018-12-26] MEDS: hydrALAZINE 25 MG TAB PO SCH ×3 (09:04→20:12)
[2018-12-26] MEDS: Pantoprazole 40 MG GRANULES PACKET PER TUBE SCH (09:04)
--- NOTE | 2018-12-26 11:17 | PRG ---
DATE OF SERVICE: 12/26/2018 SUBJECTIVE: Trach in place. Apparently, she is a bit more responsive. OBJECTIVE: VITAL SIGNS: Temperature is 97.8, pulse is 78, blood pressure 108/75, sats are 95% on trach collar. CHEST: No wheezing. CARDIAC: Normal S1 and S2. No gallops. ABDOMEN: No masses. IMPRESSION: Respiratory failure, trach, intracerebral hemorrhage, encephalopathy. PLAN: Eventually placement. Continue supportive care, PT, nutrition. Job ID: [id number]
--- NOTE | 2018-12-26 13:04 | PDOC.PN ---
- Subjective Encounter Start Date: 12/26/18 Encounter Start Time: 13:02 Patient seen and examined, no new issues, no family at bedside. - Objective Vital Signs & Weight: Vital Signs (12 hours) Temp Pulse Resp Pulse Ox 12/26/18 11:49 98.4 F 12/26/18 09:04 93 12/26/18 09:03 93 12/26/18 07:52 100 12/26/18 07:32 97.8 F 12/26/18 07:28 93 21 H 100 12/26/18 04:00 98.6 F Weight Admit Weight 245 lb 9.519 oz Weight 239 lb 6.752 oz Most Recent Monitor Data Heart Rate from ECG 101 NIBP 218/113 NIBP BP-Mean 148 Respiration from ECG 21 SpO2 100 I&O: 12/25/18 12/26/18 12/27/18 06:59 06:59 06:59 Intake Total 3200 3304 240 Output Total 2150 3250 Balance 1050 54 240 Result Diagrams: 12/23/18 05:34 12/26/18 06:51 Additional Labs: Accuchecks 12/26/18 12/26/18 12/25/18 10:30 05:22 20:25 POC Glucose 122 H 134 H 122 H 12/25/18 16:26 POC Glucose 141 H Phys Exam - Physical Examination Constitutional: NAD HEENT: PERRLA, moist MMs, sclera anicteric Neck: no nodes, no JVD, supple +trach Respiratory: no wheezing, no rales, no rhonchi Cardiovascular: RRR, no significant murmur, no rub Gastrointestinal: soft, non-tender, no distention Dx/Plan (1) Acute encephalopathy Code(s): G93.40 - ENCEPHALOPATHY, UNSPECIFIED Status: Acute Comment: Due to CVA. (2) Hypertensive emergency Code(s): I16.1 - HYPERTENSIVE EMERGENCY Status: Acute Comment: BP labile (3) ICH (intracerebral hemorrhage) Code(s): I61.9 - NONTRAUMATIC INTRACEREBRAL HEMORRHAGE, UNSPECIFIED Status: Acute Qualifiers: Intracerebral hemorrhage etiology: nontraumatic Laterality: left Comment: left thalamic with extension, edema, s/p EVD (4) Obesity Code(s): E66.9 - OBESITY, UNSPECIFIED Status: Chronic Qualifiers: Obesity classification: adult class 3 (BMI >= 40) Body mass index: BMI 40.0 -44.9 - Plan * pending placement to LTAC * continue current plan of care, no changes * no family at bedside.
[2018-12-26] MEDS: Potassium Chloride 20 MEQ TAB PO PRN (20:13)
[2018-12-27] MEDS: Furosemide 40 MG/4 ML VIAL SLOW IVP SCH ×2 (05:18→15:02)
[2018-12-27 05:34] LABS: Anion Gap 14 mmol/L (10-20); BUN (Urea Nitrogen) 28 mg/dL (7.0-18.7); Calc. Creatinine Clearance 114 mL/min (70-130); Calcium 9.8 mg/dL (7.8-10.44); Carbon Dioxide 28 mmol/L (22-29); Chloride 102 mmol/L (98-107); Estimated GFR-MDRD 68; Glucose 143 mg/dL (70-105); Potassium 3.4 mmol/L (3.5-5.1); Sodium 141 mmol/L (136-145)
--- NOTE | 2018-12-27 08:58 | PRG ---
DATE OF SERVICE: 12/27/2018 TIME SPENT: 35 minutes of critical care time. SUBJECTIVE: The patient remains in the intermediate care unit, seems to be doing well, more responsive. OBJECTIVE: VITAL SIGNS: Temperature 97.6, pulse 81, blood pressure 147/87. She does have a labile blood pressure at times, spiking up to diastolic greater than 100. 24-hour intake 3150 and output 3000. HEENT: Unremarkable. NECK: Trach in good position, has some secretions present. LUNGS: Coarse rhonchi. CARDIAC: S1 and S2. Regular. ABDOMEN: Soft. EXTREMITIES: No edema. LABORATORY DATA: Sodium 141, potassium 3.4, chloride 102, CO2 of 28, BUN 28, creatinine 1.0, and glucose 143. ASSESSMENT: 1. Status post thalamic bleed secondary to severe hypertension. 2. Status post trach. PLAN: 1. Try to advance to [place] speaking valve if she can. 2. Continue supportive care, otherwise. 3. Placement. Job ID: [id number]
[2018-12-27] MEDS: Scopolamine 1.5 mg/72 hour Patch TD SCH (09:23)
[2018-12-27] MEDS: cloNIDine 0.2 MG TAB PER TUBE SCH ×3 (09:23→20:37)
[2018-12-27] MEDS: Labetalol 100 MG TAB PO SCH ×2 (09:23→20:37)
[2018-12-27] MEDS: hydrALAZINE 25 MG TAB PO SCH ×3 (09:23→20:36)
[2018-12-27] MEDS: Pantoprazole 40 MG GRANULES PACKET PER TUBE SCH (09:23)
[2018-12-27] MEDS: levETIRAcetam 500 mg/5 ml Oral Solution PO SCH ×2 (09:23→20:36)
[2018-12-27] MEDS: Amlodipine 10 MG TAB PER TUBE SCH (09:23)
--- NOTE | 2018-12-27 17:58 | PDOC.PN ---
- Subjective Encounter Start Date: 12/27/18 Encounter Start Time: 18:00 Subjective: f/u for ICH L thalamic distribution, trach placement and awaiting -: placement. - Objective MAR Reviewed: Yes Vital Signs & Weight: Vital Signs (12 hours) Temp Pulse Pulse Pulse Resp BP BP 12/27/18 15:02 89 193/114 H 12/27/18 14:40 88 90 155/97 H 12/27/18 14:03 89 19 12/27/18 12:08 99 F 88 17 12/27/18 09:23 84 193/114 H 12/27/18 07:38 12/27/18 07:36 84 20 BP BP Pulse Ox Pulse Ox Pulse Ox 12/27/18 15:02 12/27/18 14:40 161/108 H 97 97 12/27/18 14:03 99 12/27/18 12:08 181/110 H 99 12/27/18 09:23 12/27/18 07:38 100 12/27/18 07:36 99 Weight Admit Weight 245 lb 9.519 oz Weight 240 lb Most Recent Monitor Data Heart Rate from ECG 93 NIBP 154/109 NIBP BP-Mean 124 Respiration from ECG 20 SpO2 98 I&O: 12/26/18 12/27/18 12/28/18 06:59 06:59 06:59 Intake Total 3304 3150 360 Output Total 3250 3000 Balance 54 150 360 Result Diagrams: 12/23/18 05:34 12/27/18 04:42 Additional Labs: Accuchecks 12/27/18 12/27/18 12/27/18 16:34 10:15 06:03 POC Glucose 142 H 143 H 125 H 12/26/18 12/26/18 20:00 16:41 POC Glucose 134 H 134 H EKG Reviewed by me: Yes (Tele - SR) Phys Exam - Physical Examination Constitutional: NAD HEENT: PERRLA, sclera anicteric, oral pharynx no lesions +trach in place Neck: no JVD, supple, full ROM + rhonchi Respiratory: no wheezing S1, S2 Cardiovascular: RRR, no significant murmur, no rub, gallop + PEG in LUQ Gastrointestinal: soft, non-tender, no distention, positive bowel sounds Musculoskeletal: no edema, pulses present Neurological: normal sensation Skin: normal turgor, cap refill <2 seconds Dx/Plan (1) HTN (hypertension) Code(s): I10 - ESSENTIAL (PRIMARY) HYPERTENSION Status: Chronic Qualifiers: Hypertension type: essential hypertension Qualified Code(s): I10 - Essential (primary) hypertension Comment: Labile, uncontrolled, increase Hydralazine 75mg TID, titrate to optimal response (2) Acute encephalopathy Code(s): G93.40 - ENCEPHALOPATHY, UNSPECIFIED Status: Acute Comment: Secondary to ICH (3) ICH (intracerebral hemorrhage) Code(s): I61.9 - NONTRAUMATIC INTRACEREBRAL HEMORRHAGE, UNSPECIFIED Status: Acute Qualifiers: Intracerebral hemorrhage etiology: nontraumatic Laterality: left Comment: left thalamic with extension, edema, s/p EVD (4) Obesity Code(s): E66.9 - OBESITY, UNSPECIFIED Status: Chronic Qualifiers: Obesity classification: adult class 3 (BMI >= 40) Body mass index: BMI 40.0 -44.9 Comment: TF's, serial monitoring, dietitian consult - Plan PT/OT, social media developer, speech therapy, respiratory therapy, DVT proph w/SCDs Stable currently -: Increase Hydralazine 75mg TID -: Nutritional support with Jevity 1.2 @ 60ml/h -: PT/OT for mobilization -: LTAC/SNF options pending * AM lab: BMP
[2018-12-27] MEDS: Potassium Chloride 20 MEQ TAB PO PRN (20:37)
[2018-12-28] MEDS: Furosemide 40 MG/4 ML VIAL SLOW IVP SCH ×2 (05:29→16:43)
[2018-12-28 06:50] LABS: Anion Gap 11 mmol/L (10-20); BUN (Urea Nitrogen) 29 mg/dL (7.0-18.7); Calc. Creatinine Clearance 109 mL/min (70-130); Calcium 10.1 mg/dL (7.8-10.44); Carbon Dioxide 30 mmol/L (22-29); Chloride 101 mmol/L (98-107); Estimated GFR-MDRD 64; Glucose 155 mg/dL (70-105); Potassium 3.3 mmol/L (3.5-5.1); Sodium 139 mmol/L (136-145)
--- NOTE | 2018-12-28 09:05 | PRG ---
DATE OF SERVICE: 12/28/2018 The patient is doing reasonably well, has no complaints. OBJECTIVE: VITAL SIGNS: Temperature 98.6, pulse 90, blood pressure 169/101. NEUROLOGICAL: She can follow commands with the left side. I tried to get her to phonate by using her speaking valve, but she could not. HEENT: Unremarkable. NECK: Copious tracheal secretions. LUNGS: Coarse rhonchi. CARDIAC: S1 and S2. Regular. ABDOMEN: Soft, obese. EXTREMITIES: Trace edema throughout. LABORATORY DATA: Sodium 139, potassium 3.3, chloride 101, CO2 of 30, BUN 29, creatinine 1.1, glucose 155. ASSESSMENT: 1. Status post left-sided thalamic bleed. 2. Status post respiratory failure, requiring mechanical ventilation. 3. Status post trach. 4. Severe debilitation. PLAN: 1. Continue suctioning as needed. 2. Continue scopolamine patch for excess secretions. Job ID: [id number]
[2018-12-28] MEDS: hydrALAZINE 25 MG TAB PO SCH ×3 (09:10→20:06)
[2018-12-28] MEDS: levETIRAcetam 500 mg/5 ml Oral Solution PO SCH ×2 (09:10→20:06)
[2018-12-28] MEDS: Labetalol 100 MG TAB PO SCH ×2 (09:11→20:05)
[2018-12-28] MEDS: Pantoprazole 40 MG GRANULES PACKET PER TUBE SCH (09:11)
[2018-12-28] MEDS: Amlodipine 10 MG TAB PER TUBE SCH (09:11)
[2018-12-28] MEDS: cloNIDine 0.2 MG TAB PER TUBE SCH ×2 (09:11→16:37)
[2018-12-28] MEDS: cloNIDine 0.3 MG TAB PER TUBE SCH (20:05)
--- NOTE | 2018-12-28 22:11 | PDOC.PN ---
- Subjective Encounter Start Date: 12/28/18 Encounter Start Time: 15:40 Subjective: f/u for ICH with aphasia and R hemiplegia with current trach/PEG -: No new events per nursing. - Objective MAR Reviewed: Yes Vital Signs & Weight: Vital Signs (12 hours) Temp Pulse Pulse Pulse Resp BP BP 12/28/18 21:10 12/28/18 20:06 91 12/28/18 20:05 94 12/28/18 20:00 97.8 F 12/28/18 19:00 100 16 12/28/18 16:37 193/114 H 12/28/18 16:36 91 12/28/18 15:58 98.4 F 12/28/18 14:25 91 17 12/28/18 13:51 116 H 100 156/97 H 12/28/18 11:12 98.2 F BP Pulse Ox Pulse Ox Pulse Ox 12/28/18 21:10 97 12/28/18 20:06 12/28/18 20:05 12/28/18 20:00 12/28/18 19:00 99 12/28/18 16:37 12/28/18 16:36 12/28/18 15:58 12/28/18 14:25 98 12/28/18 13:51 158/116 H 99 96 12/28/18 11:12 Weight Admit Weight 245 lb 9.519 oz Weight 241 lb 3.2 oz Most Recent Monitor Data Heart Rate from ECG 83 NIBP 115/87 NIBP BP-Mean 96 Respiration from ECG 20 SpO2 97 I&O: 12/27/18 12/28/18 12/29/18 06:59 06:59 06:59 Intake Total 3150 3010 1560 Output Total 3000 2250 1900 Balance 150 760 -340 Result Diagrams: 12/23/18 05:34 12/28/18 05:55 Additional Labs: Accuchecks 12/28/18 12/28/18 12/28/18 20:34 16:39 10:30 POC Glucose 144 H 112 H 171 H 12/28/18 06:06 POC Glucose 144 H Laboratory Tests 12/25/18 12/26/18 12/27/18 04:55 06:51 04:42 Potassium 3.4 L 3.3 L 3.4 L Creatinine 0.91 0.97 1.06 EKG Reviewed by me: Yes (Tele - SR) Phys Exam - Physical Examination Constitutional: NAD opens eyes to name and tracks, aphasic HEENT: PERRLA, sclera anicteric, oral pharynx no lesions + trach in place Neck: no nodes, no JVD, supple, full ROM diminished in bases Respiratory: no wheezing, no rales, no rhonchi S1, S2 Cardiovascular: RRR, no significant murmur, no rub, gallop + PEG in place Gastrointestinal: soft, non-tender, no distention, positive bowel sounds Musculoskeletal: pulses present, edema present R hemiplegia, LUE movement noted Neurological: normal sensation Skin: normal turgor, cap refill <2 seconds Dx/Plan (1) HTN (hypertension) Code(s): I10 - ESSENTIAL (PRIMARY) HYPERTENSION Status: Chronic Qualifiers: Hypertension type: essential hypertension Qualified Code(s): I10 - Essential (primary) hypertension Comment: Labile, uncontrolled, increase Hydralazine 100mg TID, Increase Clonidine 0.3mg TID,titrate to optimal response (2) Acute encephalopathy Code(s): G93.40 - ENCEPHALOPATHY, UNSPECIFIED Status: Acute Comment: Secondary to ICH (3) ICH (intracerebral hemorrhage) Code(s): I61.9 - NONTRAUMATIC INTRACEREBRAL HEMORRHAGE, UNSPECIFIED Status: Acute Qualifiers: Intracerebral hemorrhage etiology: nontraumatic Laterality: left Comment: left thalamic with extension, edema, s/p EVD (4) Obesity Code(s): E66.9 - OBESITY, UNSPECIFIED Status: Chronic Qualifiers: Obesity classification: adult class 3 (BMI >= 40) Body mass index: BMI 40.0 -44.9 Comment: TF's, serial monitoring, dietitian consult - Plan PT/OT, social security benefits interviewer, speech therapy, respiratory therapy, DVT proph w/SCDs Continue supportive mgmt -: Nutritional support with TF's -: Pulmonary support with trach collar -: CM for SNF/NH options -: Increase Hydralazine, Clonidine for optimizing BP control * AM lab: BMP
[2018-12-29 05:15] LABS: Anion Gap 16 mmol/L (10-20); BUN (Urea Nitrogen) 33 mg/dL (7.0-18.7); Calc. Creatinine Clearance 101 mL/min (70-130); Calcium 10.2 mg/dL (7.8-10.44); Carbon Dioxide 31 mmol/L (22-29); Chloride 101 mmol/L (98-107); Estimated GFR-MDRD 59; Glucose 146 mg/dL (70-105); Potassium 3.6 mmol/L (3.5-5.1); Sodium 144 mmol/L (136-145)
[2018-12-29] MEDS: Furosemide 40 MG/4 ML VIAL SLOW IVP SCH ×2 (06:05→14:51)
--- NOTE | 2018-12-29 08:45 | PRG ---
DATE OF SERVICE: 12/29/2018 SUBJECTIVE: The patient is doing reasonably well. She is looking around the room. She is moving her left arm and left leg very well. OBJECTIVE: VITAL SIGNS: Temperature 99.6, pulse 91, blood pressure 166/112, O2 sat 99%. HEENT: Unremarkable. NECK: Trach in good position. Clear secretions. CARDIAC: S1, S2. Regular. ABDOMEN: Soft. PEG tube noted. EXTREMITIES: No edema. LABORATORY DATA: Sodium 144, potassium 3.6, BUN 33, creatinine 1.2, glucose 146. ASSESSMENT: 1. Status post tracheostomy. 2. Status post intracranial bleed. PLAN: At this point, just awaiting placement. Blood pressure control per primary team. No acute pulmonary issues at this time. Job ID: [id number]
[2018-12-29] MEDS: hydrALAZINE 25 MG TAB PO SCH ×3 (09:00→21:28)
[2018-12-29] MEDS: cloNIDine 0.3 MG TAB PER TUBE SCH ×3 (09:01→21:28)
[2018-12-29] MEDS: Labetalol 100 MG TAB PO SCH ×2 (09:01→21:27)
[2018-12-29] MEDS: levETIRAcetam 500 mg/5 ml Oral Solution PO SCH ×2 (09:02→21:29)
[2018-12-29] MEDS: Amlodipine 10 MG TAB PER TUBE SCH (09:02)
[2018-12-29] MEDS: Pantoprazole 40 MG GRANULES PACKET PER TUBE SCH (09:02)
--- NOTE | 2018-12-29 19:08 | PDOC.PN ---
- Subjective Encounter Start Date: 12/29/18 Encounter Start Time: 15:30 Subjective: f/u for ICH with R hemiplegia. Moving L-side regularly per nursing. -: BP trend improved. - Objective MAR Reviewed: Yes Vital Signs & Weight: Vital Signs (12 hours) Temp Pulse Pulse Pulse Resp BP BP 12/29/18 14:51 81 123/77 12/29/18 13:55 98.4 F 12/29/18 13:44 79 16 12/29/18 09:25 89 88 148/110 H 12/29/18 09:02 91 12/29/18 09:01 91 193/114 H 12/29/18 09:00 91 12/29/18 08:00 12/29/18 07:57 91 16 BP Pulse Ox Pulse Ox Pulse Ox 12/29/18 14:51 12/29/18 13:55 12/29/18 13:44 12/29/18 09:25 153/103 H 100 98 12/29/18 09:02 12/29/18 09:01 12/29/18 09:00 12/29/18 08:00 98 12/29/18 07:57 99 Weight Admit Weight 245 lb 9.519 oz Weight 238 lb 5.115 oz Most Recent Monitor Data Heart Rate from ECG 78 NIBP 115/78 NIBP BP-Mean 90 Respiration from ECG 20 SpO2 99 I&O: 12/28/18 12/29/18 12/30/18 06:59 06:59 06:59 Intake Total 3010 3010 480 Output Total 2250 2250 1250 Balance 760 760 -770 Result Diagrams: 12/23/18 05:34 12/29/18 04:35 Additional Labs: Accuchecks 12/29/18 12/29/18 12/29/18 16:05 10:22 05:39 POC Glucose 150 H 124 H 122 H 12/28/18 20:34 POC Glucose 144 H Laboratory Tests 12/25/18 12/26/18 12/27/18 04:55 06:51 04:42 Potassium 3.4 L 3.3 L 3.4 L Creatinine 0.91 0.97 1.06 EKG Reviewed by me: Yes (Tele - SR) Phys Exam - Physical Examination Constitutional: NAD alert, nods to questions HEENT: PERRLA, sclera anicteric, oral pharynx no lesions Neck: no nodes, no JVD, supple, full ROM Respiratory: no wheezing, no rales, no rhonchi, clear to auscultation bilateral S1, S2 Cardiovascular: RRR, no significant murmur, no rub, gallop Gastrointestinal: soft, non-tender, no distention, positive bowel sounds minimal LE edema Musculoskeletal: pulses present R hemiplegia Skin: normal turgor, cap refill <2 seconds Dx/Plan (1) HTN (hypertension) Code(s): I10 - ESSENTIAL (PRIMARY) HYPERTENSION Status: Chronic Qualifiers: Hypertension type: essential hypertension Qualified Code(s): I10 - Essential (primary) hypertension Comment: Improved, continue Hydralazine 100mg TID, Clonidine 0.3mg TID,titrate to optimal response (2) Acute encephalopathy Code(s): G93.40 - ENCEPHALOPATHY, UNSPECIFIED Status: Acute Comment: Secondary to ICH, mild improvement (3) ICH (intracerebral hemorrhage) Code(s): I61.9 - NONTRAUMATIC INTRACEREBRAL HEMORRHAGE, UNSPECIFIED Status: Acute Qualifiers: Intracerebral hemorrhage etiology: nontraumatic Laterality: left Comment: left thalamic with extension, edema, s/p EVD (4) Obesity Code(s): E66.9 - OBESITY, UNSPECIFIED Status: Chronic Qualifiers: Obesity classification: adult class 3 (BMI >= 40) Body mass index: BMI 40.0 -44.9 Comment: TF's, serial monitoring, dietitian consult - Plan PT/OT, social work faculty member, speech therapy, DVT proph w/SCDs Stable currently -: Change Lasix 40mg po BID -: Continue Keppra -: PT/OT for ROM exercises -: AM lab: BMP * SNF options pending
[2018-12-30 04:30] LABS: Anion Gap 16 mmol/L (10-20); BUN (Urea Nitrogen) 37 mg/dL (7.0-18.7); Calc. Creatinine Clearance 98 mL/min (70-130); Calcium 10.1 mg/dL (7.8-10.44); Carbon Dioxide 31 mmol/L (22-29); Chloride 100 mmol/L (98-107); Estimated GFR-MDRD 57; Glucose 126 mg/dL (70-105); Potassium 3.4 mmol/L (3.5-5.1); Sodium 144 mmol/L (136-145)
--- NOTE | 2018-12-30 08:30 | PRG ---
DATE OF SERVICE: 12/30/2018 SUBJECTIVE: Ms. Villarreal is moving around with her left side, not any with the right. She is not communicative, does not try to talk. OBJECTIVE: VITAL SIGNS: On exam, temperature is 98.8, pulse 76, blood pressure 108/69, and O2 sat 100%. HEENT: Unremarkable. NECK: Trach in good position, minimal secretions. LUNGS: Clear. CARDIAC: S1 and S2, regular. ABDOMEN: Soft. EXTREMITIES: No edema. LABORATORY DATA: Sodium 144, potassium 3.4, chloride 100, CO2 of 31, BUN 37, creatinine 1.2, and glucose 126. ASSESSMENT: 1. No change. 2. Status post thalamic stroke. 3. Status post respiratory failure requiring mechanical ventilation and tracheostomy placement. PLAN: Mainly a placement issue and rehab issue at this point. She is stable on her current medical regiment and we will follow. Job ID: [id number]
[2018-12-30] MEDS: Scopolamine 1.5 mg/72 hour Patch TD SCH (08:49)
[2018-12-30] MEDS: levETIRAcetam 500 mg/5 ml Oral Solution PO SCH ×2 (08:49→21:31)
[2018-12-30] MEDS: Amlodipine 10 MG TAB PER TUBE SCH (08:51)
[2018-12-30] MEDS: cloNIDine 0.3 MG TAB PER TUBE SCH ×3 (08:52→21:31)
[2018-12-30] MEDS: hydrALAZINE 25 MG TAB PO SCH ×3 (08:52→21:30)
[2018-12-30] MEDS: Labetalol 100 MG TAB PO SCH ×2 (08:52→21:31)
[2018-12-30] MEDS: Furosemide 40 MG TAB PER TUBE SCH ×2 (08:52→14:54)
[2018-12-30] MEDS: Pantoprazole 40 MG GRANULES PACKET PER TUBE SCH (08:53)
--- NOTE | 2018-12-30 22:51 | PDOC.PN ---
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 No new events overnight. - Objective MAR Reviewed: Yes Vital Signs & Weight: Vital Signs (12 hours) Temp Pulse Resp BP Pulse Ox 12/30/18 21:31 80 162/116 H 12/30/18 21:30 80 162/116 H 12/30/18 19:14 98.7 F 12/30/18 19:09 80 19 100 12/30/18 14:54 132/101 H 12/30/18 14:53 91 12/30/18 13:49 80 18 100 Weight Admit Weight 245 lb 9.519 oz Weight 239 lb 14.4 oz Most Recent Monitor Data Heart Rate from ECG 77 NIBP 115/74 NIBP BP-Mean 87 Respiration from ECG 19 SpO2 100 I&O: 12/29/18 12/30/18 12/31/18 06:59 06:59 06:59 Intake Total 3010 2220 360 Output Total 2250 1750 600 Balance 760 470 -240 Result Diagrams: 12/23/18 05:34 12/30/18 03:59 Additional Labs: Accuchecks 12/30/18 12/30/18 12/30/18 21:08 16:22 10:31 POC Glucose 96 138 H 128 H Laboratory Tests 12/25/18 12/26/18 12/27/18 04:55 06:51 04:42 Potassium 3.4 L 3.3 L 3.4 L Creatinine 0.91 0.97 1.06 12/28/18 12/29/18 05:55 04:35 Potassium 3.3 L 3.6 Creatinine 1.11 H 1.20 H EKG Reviewed by me: Yes (Tele - SR) Phys Exam - Physical Examination Constitutional: NAD HEENT: PERRLA, sclera anicteric, oral pharynx no lesions + trach in place Neck: no nodes, no JVD, supple, full ROM diminished in bases Respiratory: no wheezing, clear to auscultation bilateral S1, S2 Cardiovascular: RRR, no significant murmur, no rub, gallop + PEG in place Gastrointestinal: soft, non-tender, no distention, positive bowel sounds Musculoskeletal: pulses present, edema present R hemiplegia, aphasic, dysphagia Moves GROVER/LLE spontaneously Skin: normal turgor, cap refill <2 seconds Dx/Plan (1) HTN (hypertension) Code(s): I10 - ESSENTIAL (PRIMARY) HYPERTENSION Status: Chronic Qualifiers: Hypertension type: essential hypertension Qualified Code(s): I10 - Essential (primary) hypertension Comment: Improved, continue Hydralazine 100mg TID, Clonidine 0.3mg TID,titrate to optimal response (2) Acute encephalopathy Code(s): G93.40 - ENCEPHALOPATHY, UNSPECIFIED Status: Acute Comment: Secondary to ICH, mild improvement (3) ICH (intracerebral hemorrhage) Code(s): I61.9 - NONTRAUMATIC INTRACEREBRAL HEMORRHAGE, UNSPECIFIED Status: Acute Qualifiers: Intracerebral hemorrhage etiology: nontraumatic Laterality: left Comment: left thalamic with extension, edema, s/p EVD (4) Obesity Code(s): E66.9 - OBESITY, UNSPECIFIED Status: Chronic Qualifiers: Obesity classification: adult class 3 (BMI >= 40) Body mass index: BMI 40.0 -44.9 Comment: TF's, serial monitoring, dietitian consult - Plan PT/OT, social worker, speech therapy, respiratory therapy, DVT proph w/SCDs Stable currently -: Continue PT/OT/ST -: OOB with PT/ROM exercises -: CM assisting with rehab options -: AM lab: BMP * .
[2018-12-31 05:50] LABS: Anion Gap 12 mmol/L (10-20); BUN (Urea Nitrogen) 35 mg/dL (7.0-18.7); Calc. Creatinine Clearance 108 mL/min (70-130); Calcium 10.1 mg/dL (7.8-10.44); Carbon Dioxide 35 mmol/L (22-29); Chloride 102 mmol/L (98-107); Estimated GFR-MDRD 63; Glucose 118 mg/dL (70-105); Potassium 3.3 mmol/L (3.5-5.1); Sodium 146 mmol/L (136-145)
--- NOTE | 2018-12-31 08:24 | PRG ---
DATE OF SERVICE: 12/31/2018 SUBJECTIVE: The patient is actually able to shake and nod her head to questions today. Does not appear to be in any distress. OBJECTIVE: VITAL SIGNS: Temperature 97.6, pulse 77, blood pressure 117/77, O2 saturation 96%. HEENT: Unremarkable. NECK: Trach clean. CARDIAC: S1, S2. Regular. ABDOMEN: Soft. EXTREMITIES: No edema. LABORATORY DATA: Sodium 146, potassium 3.3, chloride 102, CO2 of 35, BUN 35, creatinine 1.1, glucose 118. ASSESSMENT: 1. Status post intracranial bleed in the thalamic area. 2. Status post acute respiratory failure, requiring tracheostomy placement. PLAN: She is probably improved to the point where she can be transferred out to the medical floor. She will still require suctioning. Main issue now is placement and continued treatment of her hypertension. Job ID: [id number]
[2018-12-31] MEDS: Labetalol 100 MG TAB PO SCH ×2 (09:56→20:29)
[2018-12-31] MEDS: hydrALAZINE 25 MG TAB PO SCH ×3 (09:57→20:23)
[2018-12-31] MEDS: Furosemide 40 MG TAB PER TUBE SCH ×2 (09:57→14:08)
[2018-12-31] MEDS: cloNIDine 0.3 MG TAB PER TUBE SCH ×3 (09:57→20:22)
[2018-12-31] MEDS: Amlodipine 10 MG TAB PER TUBE SCH (09:58)
[2018-12-31] MEDS: levETIRAcetam 500 mg/5 ml Oral Solution PO SCH ×2 (09:58→20:22)
[2018-12-31] MEDS: Pantoprazole 40 MG GRANULES PACKET PER TUBE SCH (09:58)
--- NOTE | 2018-12-31 16:36 | PDOC.PN ---
- Subjective Encounter Start Date: 12/31/18 Encounter Start Time: 16:35 Subjective: f/u L thalamic CVA with R hemiplegia, dysphagia, aphasia on TF's -: and tracheostomy. Requiring T-collar. - Objective MAR Reviewed: Yes Vital Signs & Weight: Vital Signs (12 hours) Temp Pulse Resp BP Pulse Ox 12/31/18 14:13 117/81 12/31/18 14:08 79 117/80 12/31/18 13:57 81 20 99 12/31/18 12:00 98 12/31/18 09:57 77 131/98 H 12/31/18 09:56 76 131/98 H 12/31/18 08:33 74 19 12/31/18 08:00 98.7 F 100 Weight Admit Weight 245 lb 9.519 oz Weight 239 lb 14.4 oz Most Recent Monitor Data Heart Rate from ECG 81 NIBP 155/104 NIBP BP-Mean 121 Respiration from ECG 17 SpO2 100 I&O: 12/30/18 12/31/18 01/01/19 06:59 06:59 06:59 Intake Total 2220 1970 240 Output Total 1750 1050 Balance 470 920 240 Result Diagrams: 12/23/18 05:34 12/31/18 05:04 Additional Labs: Accuchecks 12/31/18 12/31/18 12/30/18 10:05 06:01 21:08 POC Glucose 145 H 142 H 96 Laboratory Tests 12/25/18 12/26/18 12/27/18 04:55 06:51 04:42 Potassium 3.4 L 3.3 L 3.4 L Creatinine 0.91 0.97 1.06 12/28/18 12/29/18 05:55 04:35 Potassium 3.3 L 3.6 Creatinine 1.11 H 1.20 H Phys Exam - Physical Examination opens eyes to name, aphasic HEENT: PERRLA, sclera anicteric, oral pharynx no lesions + trach in place Neck: no nodes, no JVD, supple, full ROM diminished in bases Respiratory: no wheezing S1, S2 Cardiovascular: RRR, no significant murmur, no rub, gallop + PEG in place Gastrointestinal: soft, non-tender, no distention, positive bowel sounds Musculoskeletal: pulses present, edema present GROVER/LLE movement R hemiplegia, dysphagia, aphasic Skin: normal turgor, cap refill <2 seconds Dx/Plan (1) HTN (hypertension) Code(s): I10 - ESSENTIAL (PRIMARY) HYPERTENSION Status: Chronic Qualifiers: Hypertension type: essential hypertension Qualified Code(s): I10 - Essential (primary) hypertension Comment: Improved, continue Hydralazine 100mg TID, Clonidine 0.3mg TID,titrate to optimal response (2) Acute encephalopathy Code(s): G93.40 - ENCEPHALOPATHY, UNSPECIFIED Status: Acute Comment: Secondary to ICH, mild improvement (3) ICH (intracerebral hemorrhage) Code(s): I61.9 - NONTRAUMATIC INTRACEREBRAL HEMORRHAGE, UNSPECIFIED Status: Acute Qualifiers: Intracerebral hemorrhage etiology: nontraumatic Laterality: left Comment: left thalamic with extension, edema, s/p EVD (4) Obesity Code(s): E66.9 - OBESITY, UNSPECIFIED Status: Chronic Qualifiers: Obesity classification: adult class 3 (BMI >= 40) Body mass index: BMI 40.0 -44.9 Comment: TF's, serial monitoring, dietitian consult - Plan plan discussed w/ family, PT/OT, social media project manager, speech therapy, respiratory therapy, DVT proph w/SCDs Stable currently -: Pulmonary support with trach care, suctioning -: Nutritional support with TF's -: PT/OT/ST -: CM assisting with SNF options * .
[2019-01-01] MEDS: cloNIDine 0.3 MG TAB PER TUBE SCH ×3 (08:45→20:39)
[2019-01-01] MEDS: Furosemide 40 MG TAB PER TUBE SCH ×2 (08:45→16:07)
[2019-01-01] MEDS: levETIRAcetam 500 mg/5 ml Oral Solution PO SCH ×2 (08:45→20:42)
[2019-01-01] MEDS: Labetalol 100 MG TAB PO SCH ×2 (08:46→20:38)
[2019-01-01] MEDS: Pantoprazole 40 MG GRANULES PACKET PER TUBE SCH (08:46)
[2019-01-01] MEDS: hydrALAZINE 25 MG TAB PO SCH ×3 (08:46→20:41)
[2019-01-01] MEDS: Amlodipine 10 MG TAB PER TUBE SCH (08:47)
[2019-01-01 09:29] LABS: Anion Gap 11 mmol/L (10-20); BUN (Urea Nitrogen) 29 mg/dL (7.0-18.7); Calc. Creatinine Clearance 109 mL/min (70-130); Calcium 10.3 mg/dL (7.8-10.44); Carbon Dioxide 37 mmol/L (22-29); Chloride 101 mmol/L (98-107); Estimated GFR-MDRD 66; Glucose 142 mg/dL (70-105); Potassium 3.5 mmol/L (3.5-5.1); Sodium 145 mmol/L (136-145)
--- NOTE | 2019-01-01 17:23 | PRG ---
DATE OF SERVICE: 01/01/2019 SUBJECTIVE: Ms. Villarreal is in no distress. OBJECTIVE: VITAL SIGNS: Heart rate in 70s. Blood pressure 143/85. She is on a trach collar. She makes eye contact. She is nonverbal. LUNGS: Clear. HEART: Regular rhythm. S1 and S2 are normal. ABDOMEN: Soft and nontender. She had no guarding. EXTREMITIES: Without edema or asymmetry. IMPRESSION: Status post parenchymal brain hemorrhage leading to tracheostomy and PEG placement. She will continue to be in the hospital. Blood pressure appears to be reasonably controlled at this point. Job ID: [id number]
--- NOTE | 2019-01-01 23:26 | PDOC.PN ---
- Subjective Encounter Start Date: 01/01/19 Encounter Start Time: 14:20 Subjective: f/u for L thalamic ICH with R hemiplegia, aphasia, dysphagia -: on current TF's and trach. - Objective MAR Reviewed: Yes Vital Signs & Weight: Vital Signs (12 hours) Temp Pulse Resp BP BP Pulse Ox 01/01/19 20:41 77 01/01/19 20:39 120/79 01/01/19 20:38 77 01/01/19 20:00 98.8 F 81 20 146/86 H 99 01/01/19 18:40 79 18 100 01/01/19 16:07 77 143/85 H Weight Admit Weight 245 lb 9.519 oz Weight 233 lb 4 oz Most Recent Monitor Data Heart Rate from ECG 81 NIBP 155/104 NIBP BP-Mean 121 Respiration from ECG 17 SpO2 100 I&O: 12/31/18 01/01/19 01/02/19 06:59 06:59 06:59 Intake Total 1970 1770 360 Output Total 1050 1100 1250 Balance 920 670 -890 Result Diagrams: 12/23/18 05:34 01/01/19 08:39 Additional Labs: Accuchecks 01/01/19 01/01/19 01/01/19 20:51 16:41 11:16 POC Glucose 160 H 171 H 144 H 01/01/19 03:58 POC Glucose 153 H Laboratory Tests 12/25/18 12/26/18 12/27/18 04:55 06:51 04:42 Potassium 3.4 L 3.3 L 3.4 L Creatinine 0.91 0.97 1.06 12/28/18 12/29/18 05:55 04:35 Potassium 3.3 L 3.6 Creatinine 1.11 H 1.20 H Phys Exam - Physical Examination alert, nods to questions, aphasic HEENT: PERRLA, sclera anicteric, oral pharynx no lesions + trach in place with T-collar Neck: no nodes, no JVD, supple, full ROM Respiratory: no wheezing, no rales, no rhonchi S1, S2 Cardiovascular: RRR, no significant murmur, no rub, gallop PEG in place Gastrointestinal: soft, non-tender, no distention, positive bowel sounds Musculoskeletal: no edema, pulses present R hemiplegia, aphasica, dysphagia Moving GROVER/LLE Skin: normal turgor, cap refill <2 seconds Dx/Plan (1) HTN (hypertension) Code(s): I10 - ESSENTIAL (PRIMARY) HYPERTENSION Status: Chronic Qualifiers: Hypertension type: essential hypertension Qualified Code(s): I10 - Essential (primary) hypertension Comment: Improved, continue Hydralazine 100mg TID, Clonidine 0.3mg TID,titrate to optimal response (2) Acute encephalopathy Code(s): G93.40 - ENCEPHALOPATHY, UNSPECIFIED Status: Acute Comment: Secondary to ICH, mild improvement (3) ICH (intracerebral hemorrhage) Code(s): I61.9 - NONTRAUMATIC INTRACEREBRAL HEMORRHAGE, UNSPECIFIED Status: Acute Qualifiers: Intracerebral hemorrhage etiology: nontraumatic Laterality: left Comment: left thalamic with extension, edema, s/p EVD (4) Obesity Code(s): E66.9 - OBESITY, UNSPECIFIED Status: Chronic Qualifiers: Obesity classification: adult class 3 (BMI >= 40) Body mass index: BMI 40.0 -44.9 Comment: TF's, serial monitoring, dietitian consult - Plan plan discussed w/ family, PT/OT, social work professor, speech therapy, respiratory therapy, DVT proph w/SCDs Stable currently -: Nutritional support with TF's -: Continue current BP regimen and optimize to clinical response -: CM for SNF/LTAC options -: PT/OT for mobilization * .
[2019-01-02] MEDS: levETIRAcetam 500 mg/5 ml Oral Solution PO SCH ×2 (08:42→20:55)
[2019-01-02] MEDS: Scopolamine 1.5 mg/72 hour Patch TD SCH (08:48)
[2019-01-02] MEDS: cloNIDine 0.3 MG TAB PER TUBE SCH ×3 (08:48→20:54)
[2019-01-02] MEDS: hydrALAZINE 25 MG TAB PO SCH ×3 (08:49→20:54)
[2019-01-02] MEDS: Pantoprazole 40 MG GRANULES PACKET PER TUBE SCH (08:49)
[2019-01-02] MEDS: Furosemide 40 MG TAB PER TUBE SCH ×2 (08:49→15:45)
[2019-01-02] MEDS: Labetalol 100 MG TAB PO SCH ×2 (08:49→20:54)
[2019-01-02] MEDS: Amlodipine 10 MG TAB PER TUBE SCH (08:49)
--- NOTE | 2019-01-02 13:48 | PDOC.PN ---
- Subjective Encounter Start Date: 01/02/19 Encounter Start Time: 13:40 Subjective: f/u for L thalamic ICH with dysphagia, aphasia, trach and PEG with R -: hemiplegia. No new events overnight. Remains on T-collar 5L/min O2 - Objective MAR Reviewed: Yes Vital Signs & Weight: Vital Signs (12 hours) Pulse Resp BP Pulse Ox 01/02/19 12:10 80 24 H 01/02/19 08:49 95 146/80 H 01/02/19 08:48 146/80 H 01/02/19 08:25 97 01/02/19 08:23 97 24 H 97 01/02/19 08:00 94 L Weight Admit Weight 245 lb 9.519 oz Weight 231 lb Most Recent Monitor Data Heart Rate from ECG 81 NIBP 155/104 NIBP BP-Mean 121 Respiration from ECG 17 SpO2 100 I&O: 01/01/19 01/02/19 01/03/19 06:59 06:59 06:59 Intake Total 1770 2170 240 Output Total 1100 1550 Balance 670 620 240 Result Diagrams: 12/23/18 05:34 01/01/19 08:39 Additional Labs: Accuchecks 01/02/19 01/02/19 01/01/19 11:15 04:38 20:51 POC Glucose 134 H 149 H 160 H 01/01/19 16:41 POC Glucose 171 H Laboratory Tests 12/25/18 12/26/18 12/27/18 04:55 06:51 04:42 Potassium 3.4 L 3.3 L 3.4 L Creatinine 0.91 0.97 1.06 12/28/18 12/29/18 05:55 04:35 Potassium 3.3 L 3.6 Creatinine 1.11 H 1.20 H Phys Exam - Physical Examination Constitutional: NAD alert, nods to questions, moves LUE spontaneously HEENT: PERRLA, sclera anicteric, oral pharynx no lesions + trach in place with T-collar Neck: no nodes, no JVD, supple, full ROM Respiratory: no wheezing, no rales, no rhonchi, clear to auscultation bilateral S1, S2 Cardiovascular: RRR, no significant murmur, no rub, gallop + PEG in place Gastrointestinal: soft, non-tender, no distention, positive bowel sounds Musculoskeletal: no edema, pulses present R hemiplegia, aphasic, dysphagia Skin: normal turgor, cap refill <2 seconds Dx/Plan (1) HTN (hypertension) Code(s): I10 - ESSENTIAL (PRIMARY) HYPERTENSION Status: Chronic Qualifiers: Hypertension type: essential hypertension Qualified Code(s): I10 - Essential (primary) hypertension Comment: Improved, continue Hydralazine 100mg TID, Clonidine 0.3mg TID,titrate to optimal response (2) Acute encephalopathy Code(s): G93.40 - ENCEPHALOPATHY, UNSPECIFIED Status: Acute Comment: Secondary to ICH, improved (3) ICH (intracerebral hemorrhage) Code(s): I61.9 - NONTRAUMATIC INTRACEREBRAL HEMORRHAGE, UNSPECIFIED Status: Acute Qualifiers: Intracerebral hemorrhage etiology: nontraumatic Laterality: left Comment: left thalamic with extension, edema, s/p EVD (4) Obesity Code(s): E66.9 - OBESITY, UNSPECIFIED Status: Chronic Qualifiers: Obesity classification: adult class 3 (BMI >= 40) Body mass index: BMI 40.0 -44.9 Comment: TF's, serial monitoring, dietitian consult - Plan PT/OT, manager social responsibility, speech therapy, respiratory therapy, DVT proph w/SCDs Continue supportive mgmt -: Trach care with RT -: PT/OT/ST -: Await SNF/LTAC options -: Nutritional support Jevity 1.2 @ 60ml/h * .
--- NOTE | 2019-01-02 19:11 | PRG ---
DATE OF SERVICE: 01/02/2019 SUBJECTIVE: Madison Villarreal had no complaints. She is smiling a little more today. She is fidgety and rolling around in bed. The nurses were helping reposition her. Lungs, heart, and abdomen were unchanged. She does not have any secretion issues. OBJECTIVE: VITAL SIGNS: Blood pressure 136/80, heart rate 81, respiratory rates in the low 20s. She is on trach collar. Her room air sats 92, but she is pulling her trach collar off. She needs to keep it on just for humidity. IMPRESSION: Respiratory failure after a brain hemorrhage, now with a trach and a PEG, still improving. It is unclear where she will plateau, but she appears to be improving a tiny bit every day. Job ID: [id number]
[2019-01-03] MEDS: Labetalol 100 MG TAB PO SCH ×2 (09:29→20:23)
[2019-01-03] MEDS: hydrALAZINE 25 MG TAB PO SCH ×3 (09:29→20:22)
[2019-01-03] MEDS: cloNIDine 0.3 MG TAB PER TUBE SCH ×3 (09:29→20:22)
[2019-01-03] MEDS: Amlodipine 10 MG TAB PER TUBE SCH (09:30)
[2019-01-03] MEDS: Pantoprazole 40 MG GRANULES PACKET PER TUBE SCH (09:30)
[2019-01-03] MEDS: Furosemide 40 MG TAB PER TUBE SCH ×2 (09:30→15:20)
--- NOTE | 2019-01-03 10:03 | PRG ---
DATE OF SERVICE: 01/03/2019 SUBJECTIVE: The patient is actually able to wave hello to me this morning. She is able to nod, shake her head to questions, not appeared to be in any distress. She cannot talk when I occlude her trach with her speaking valve. OBJECTIVE: HEENT: Otherwise unremarkable. NECK: No JVD. Trach clear. CARDIAC: S1 and S2, regular. LUNGS: Clear. ABDOMEN: Soft. EXTREMITIES: No edema. LABORATORY DATA: No labs were done today. ASSESSMENT: 1. Status post thalamic bleed. 2. Residual speech and right sided deficits. PLAN: Continue supportive care. Awaiting placement. Job ID: [id number]
[2019-01-03] MEDS: levETIRAcetam 500 mg/5 ml Oral Solution PO SCH ×2 (12:15→20:39)
--- NOTE | 2019-01-03 15:30 | PDOC.PN ---
- Subjective Encounter Start Date: 01/03/19 Encounter Start Time: 15:30 Subjective: f/u s/p L thalamic ICH with R hemiplegia, dysphagia, expressive -: aphasia. Tolerating TF's with low residuals. - Objective MAR Reviewed: Yes Vital Signs & Weight: Vital Signs (12 hours) Temp Pulse Resp BP BP Pulse Ox 01/03/19 15:21 145/79 H 01/03/19 15:20 81 145/79 H 01/03/19 13:28 81 18 97 01/03/19 12:35 98.4 F 75 20 124/80 98 01/03/19 09:30 78 159/91 H 01/03/19 09:29 78 159/71 H 01/03/19 09:00 98 01/03/19 07:28 98.5 F 78 20 159/91 H 100 01/03/19 06:51 96 01/03/19 06:47 79 16 99 01/03/19 04:00 98.0 F 75 18 105/66 99 Weight Admit Weight 245 lb 9.519 oz Weight 235 lb Most Recent Monitor Data Heart Rate from ECG 81 NIBP 155/104 NIBP BP-Mean 121 Respiration from ECG 17 SpO2 100 I&O: 01/02/19 01/03/19 01/04/19 06:59 06:59 06:59 Intake Total 2170 3895 120 Output Total 1550 1350 Balance 620 2545 120 Result Diagrams: 12/23/18 05:34 01/01/19 08:39 Additional Labs: Accuchecks 01/03/19 01/03/19 01/02/19 11:23 05:40 20:51 POC Glucose 128 H 162 H 138 H 01/02/19 16:43 POC Glucose 133 H Laboratory Tests 12/25/18 12/26/18 12/27/18 04:55 06:51 04:42 Potassium 3.4 L 3.3 L 3.4 L Creatinine 0.91 0.97 1.06 12/28/18 12/29/18 05:55 04:35 Potassium 3.3 L 3.6 Creatinine 1.11 H 1.20 H Phys Exam - Physical Examination Constitutional: NAD alert, follows commands, nods to questions HEENT: PERRLA, sclera anicteric, oral pharynx no lesions Neck: no nodes, no JVD, supple, full ROM Respiratory: no wheezing, no rales, no rhonchi, clear to auscultation bilateral S1, S2 Cardiovascular: RRR, no significant murmur, no rub, gallop + PEG in place Gastrointestinal: soft, non-tender, no distention, positive bowel sounds Musculoskeletal: no edema, pulses present R hemiplegia, aphasia, dysphagia GROVER/LLE movement spontaneously and to commands Skin: normal turgor, cap refill <2 seconds Dx/Plan (1) HTN (hypertension) Code(s): I10 - ESSENTIAL (PRIMARY) HYPERTENSION Status: Chronic Qualifiers: Hypertension type: essential hypertension Qualified Code(s): I10 - Essential (primary) hypertension Comment: Improved, continue Hydralazine 100mg TID, Clonidine 0.3mg TID,titrate to optimal response (2) Acute encephalopathy Code(s): G93.40 - ENCEPHALOPATHY, UNSPECIFIED Status: Acute Comment: Secondary to ICH, improved (3) ICH (intracerebral hemorrhage) Code(s): I61.9 - NONTRAUMATIC INTRACEREBRAL HEMORRHAGE, UNSPECIFIED Status: Acute Qualifiers: Intracerebral hemorrhage etiology: nontraumatic Laterality: left Comment: left thalamic with extension, edema, s/p EVD, needs shelter rehab (4) Obesity Code(s): E66.9 - OBESITY, UNSPECIFIED Status: Chronic Qualifiers: Obesity classification: adult class 3 (BMI >= 40) Body mass index: BMI 40.0 -44.9 Comment: TF's, serial monitoring, dietitian consult - Plan PT/OT, social media manager, speech therapy, respiratory therapy, DVT proph w/SCDs Stable currently -: Continue supportive mgmt -: Trach/PEG care -: Nutritional support with Jevity 1.2 with transition to bolus feeds -: LTAC/SNF options pending * .
[2019-01-04] MEDS: Pantoprazole 40 MG GRANULES PACKET PER TUBE SCH (09:00)
[2019-01-04] MEDS: cloNIDine 0.3 MG TAB PER TUBE SCH ×3 (09:00→21:11)
[2019-01-04] MEDS: Amlodipine 10 MG TAB PER TUBE SCH (09:00)
[2019-01-04] MEDS: Furosemide 40 MG TAB PER TUBE SCH ×2 (09:00→15:50)
[2019-01-04] MEDS: Labetalol 100 MG TAB PO SCH ×2 (09:01→21:11)
--- NOTE | 2019-01-04 09:07 | PRG ---
DATE OF SERVICE: 01/04/2019 SUBJECTIVE: Ms. Villarreal is doing fairly well. She can only communicate with hand gestures. OBJECTIVE: VITAL SIGNS: Temperature 98.6, pulse 71, respirations 20, saturation 100%, and blood pressure 120/81. HEENT: Unremarkable. NECK: No JVD. CHEST: Clear anteriorly. CARDIAC: S1 and S2, regular. ABDOMEN: Soft. EXTREMITIES: No edema. ASSESSMENT: 1. Status post thalamic bleed. 2. Status post trach and PEG. PLAN: Continue my care and awaiting placement. Job ID: [id number]
[2019-01-04] MEDS: hydrALAZINE 25 MG TAB PO SCH ×3 (09:13→21:11)
[2019-01-04] MEDS: levETIRAcetam 500 mg/5 ml Oral Solution PO SCH ×2 (10:08→21:10)
--- NOTE | 2019-01-04 15:05 | PDOC.PN ---
- Subjective Encounter Start Date: 01/04/19 Encounter Start Time: 11:00 Subjective: f/u for L thalamic CVA, R hemiplegia, aphasia, dysphagia with TF's. - Objective MAR Reviewed: Yes Vital Signs & Weight: Vital Signs (12 hours) Temp Pulse Resp BP BP BP Pulse Ox 01/04/19 14:04 79 16 100 01/04/19 11:03 98.5 F 75 18 103/69 97 01/04/19 09:13 71 01/04/19 09:01 71 01/04/19 09:00 71 116/70 01/04/19 07:03 98.6 F 71 20 120/81 100 01/04/19 06:58 98 01/04/19 06:56 73 16 100 01/04/19 04:00 97.6 F 71 18 104/70 94 L Weight Admit Weight 245 lb 9.519 oz Weight 235 lb 12.762 oz Most Recent Monitor Data Heart Rate from ECG 81 NIBP 155/104 NIBP BP-Mean 121 Respiration from ECG 17 SpO2 100 I&O: 01/03/19 01/04/19 01/05/19 06:59 06:59 06:59 Intake Total 3895 2290 300 Output Total 1350 1850 Balance 2545 440 300 Result Diagrams: 12/23/18 05:34 01/01/19 08:39 Additional Labs: Accuchecks 01/04/19 01/04/19 01/03/19 11:02 05:20 20:46 POC Glucose 184 H 168 H 141 H 01/03/19 17:03 POC Glucose 120 H Laboratory Tests 12/25/18 12/26/18 12/27/18 04:55 06:51 04:42 Potassium 3.4 L 3.3 L 3.4 L Creatinine 0.91 0.97 1.06 12/28/18 12/29/18 05:55 04:35 Potassium 3.3 L 3.6 Creatinine 1.11 H 1.20 H Phys Exam - Physical Examination Constitutional: NAD alert, aphasic, nods to questions HEENT: PERRLA, sclera anicteric, oral pharynx no lesions + trach in place with T-collar Neck: no nodes, no JVD, supple, full ROM Respiratory: no wheezing, no rales, no rhonchi, clear to auscultation bilateral S1, S2 Cardiovascular: RRR, no significant murmur, no rub, gallop PEG in place Gastrointestinal: soft, non-tender, no distention, positive bowel sounds Musculoskeletal: no edema, pulses present R hemiplegia, aphasia, dysphagia Skin: normal turgor, cap refill <2 seconds Dx/Plan (1) HTN (hypertension) Code(s): I10 - ESSENTIAL (PRIMARY) HYPERTENSION Status: Chronic Qualifiers: Hypertension type: essential hypertension Qualified Code(s): I10 - Essential (primary) hypertension Comment: Improved, continue Hydralazine 100mg TID, Clonidine 0.3mg TID,titrate to optimal response, serial BP monitoring (2) Acute encephalopathy Code(s): G93.40 - ENCEPHALOPATHY, UNSPECIFIED Status: Acute Comment: Secondary to ICH, improved (3) ICH (intracerebral hemorrhage) Code(s): I61.9 - NONTRAUMATIC INTRACEREBRAL HEMORRHAGE, UNSPECIFIED Status: Acute Qualifiers: Intracerebral hemorrhage etiology: nontraumatic Laterality: left Comment: left thalamic with extension, edema, s/p EVD, needs [facility] rehab (4) Obesity Code(s): E66.9 - OBESITY, UNSPECIFIED Status: Chronic Qualifiers: Obesity classification: adult class 3 (BMI >= 40) Body mass index: BMI 40.0 -44.9 Comment: TF's, serial monitoring, dietitian consult - Plan PT/OT, social services technician, speech therapy, respiratory therapy, DVT proph w/SCDs Stable currently -: Continue PT/OT/ST -: Trach care -: Nutritional support with Jevity 1.2 bolus feeds -: SNF pending * .
--- NOTE | 2019-01-05 09:03 | PRG ---
DATE OF SERVICE: 01/05/2019 SUBJECTIVE: She was sleeping this morning. Her in the room said that she had some problems with secretions last night, but overall has done well. OBJECTIVE: VITAL SIGNS: Temperature 97.7, pulse 80, respirations 20, O2 saturation 100%, blood pressure 150/100. HEENT: Unremarkable. NECK: No JVD. Trach in good position. LUNGS: Clear. CARDIAC: S1, S2. Regular. ABDOMEN: Soft. EXTREMITIES: Trace edema. ASSESSMENT: 1. Status post thalamic hemorrhage. 2. Hypertension, now under control. 3. Status post trach and PEG. PLAN: We will try to change out her tracheostomy to a cuffless tube tomorrow. I will go ahead and have nursing staff get that ordered. Job ID: [id number]
[2019-01-05] MEDS: hydrALAZINE 25 MG TAB PO SCH ×3 (10:03→20:06)
[2019-01-05] MEDS: Pantoprazole 40 MG GRANULES PACKET PER TUBE SCH (10:03)
[2019-01-05] MEDS: Amlodipine 10 MG TAB PER TUBE SCH (10:04)
[2019-01-05] MEDS: cloNIDine 0.3 MG TAB PER TUBE SCH ×3 (10:04→20:06)
[2019-01-05] MEDS: Furosemide 40 MG TAB PER TUBE SCH ×2 (10:04→14:10)
[2019-01-05] MEDS: Scopolamine 1.5 mg/72 hour Patch TD SCH (10:05)
[2019-01-05] MEDS: levETIRAcetam 500 mg/5 ml Oral Solution PO SCH ×2 (10:05→20:07)
[2019-01-05] MEDS: Labetalol 100 MG TAB PO SCH ×2 (10:12→20:06)
--- NOTE | 2019-01-05 13:17 | PDOC.PN ---
- Subjective Encounter Start Date: 01/05/19 Encounter Start Time: 11:00 Subjective: no sob, is awake, moving left extremities freely -: family at bedside - Objective MAR Reviewed: Yes Vital Signs & Weight: Vital Signs (12 hours) Temp Pulse Resp BP BP Pulse Ox 01/05/19 10:56 98.6 F 82 18 161/87 H 93 L 01/05/19 10:12 80 150/87 H 01/05/19 10:04 80 150/87 H 01/05/19 10:03 80 150/87 H 01/05/19 08:00 100 01/05/19 07:52 97.7 F 80 20 150/87 H 100 01/05/19 07:06 100 01/05/19 07:00 80 16 100 01/05/19 03:10 100 Weight Admit Weight 245 lb 9.519 oz Weight 235 lb 7.259 oz Most Recent Monitor Data Heart Rate from ECG 81 NIBP 155/104 NIBP BP-Mean 121 Respiration from ECG 17 SpO2 100 I&O: 01/04/19 01/05/19 01/06/19 06:59 06:59 06:59 Intake Total 2290 2898 297 Output Total 1850 1100 Balance 440 1798 297 Result Diagrams: 12/23/18 05:34 01/01/19 08:39 Additional Labs: Accuchecks 01/05/19 01/05/19 01/04/19 10:56 05:27 22:20 POC Glucose 154 H 153 H 182 H 01/04/19 01/04/19 20:34 15:34 POC Glucose 131 H 99 Phys Exam - Physical Examination HEENT: PERRLA, moist MMs trach+ Neck: no JVD Respiratory: no wheezing, no rales Cardiovascular: RRR, no significant murmur Gastrointestinal: soft, no distention, positive bowel sounds peg+ Musculoskeletal: no edema, pulses present right hemiplegia, dysphagia, aphasia Dx/Plan (1) ICH (intracerebral hemorrhage) Code(s): I61.9 - NONTRAUMATIC INTRACEREBRAL HEMORRHAGE, UNSPECIFIED Status: Acute Qualifiers: Intracerebral hemorrhage etiology: nontraumatic Laterality: left Comment: left thalamic with extension and edema initially (2) Hypertensive emergency Code(s): I16.1 - HYPERTENSIVE EMERGENCY Status: Resolved Comment: stable htn now (3) Obesity Code(s): E66.9 - OBESITY, UNSPECIFIED Status: Chronic Qualifiers: Obesity classification: adult class 3 (BMI >= 40) Body mass index: BMI 40.0 -44.9 (4) Acute encephalopathy Code(s): G93.40 - ENCEPHALOPATHY, UNSPECIFIED Status: Acute Comment: Secondary to ICH, improved (5) DM type 2 (diabetes mellitus, type 2) Status: Acute Qualifiers: Diabetes mellitus penitentiary insulin use: without intermediate frame tender use Diabetes mellitus complication status: with unspecified complications Qualified Code(s) : E11.8 - Type 2 diabetes mellitus with unspecified complications - Plan hemo/neurostable -: has deconditioning, needs max assist to stand -: await placement, may dc if ready -: continue norvasc, clonidine, lasix, hydralazine, labetalol -: keppra was started for seizure prophylaxis, may dc if ok with nsx * . Review of Systems - Medications/Allergies Allergies/Adverse Reactions: Allergies Allergy/AdvReac Type Severity Reaction Status Date / Time No Known Drug Allergies Allergy Verified 12/10/18 22:13 Medications: Current Medications Acetaminophen (Tylenol Elixir) 1,000 mg PER TUBE Q6H PRN PRN Reason: Headache/Fever or Pain Last Admin: 12/23/18 09:04 Dose: 1,000 mg Albuterol/Ipratropium (Duoneb) 3 ml NEB [id number] SASCHA Last Admin: 01/05/19 07:00 Dose: 3 ml Amlodipine Besylate (Norvasc) 10 mg PER TUBE DAILY [facility] Last Admin: 01/05/19 10:04 Dose: 10 mg Lipase/Protease/Amylase ([place] [id number]) 1 cap FS .PER PROTOCOL PRN PRN Reason: TUBE OCCLUSION PROTOCOL Clonidine (Catapres) 0.3 mg PER TUBE TID [facility] Last Admin: 01/05/19 10:04 Dose: 0.3 mg Furosemide (Lasix) 40 mg PER TUBE 0900,1400 [facility] Last Admin: 01/05/19 10:04 Dose: 40 mg Hydralazine HCl (Apresoline) 20 mg SLOW IVP Q15MIN PRN PRN Reason: SBP>140 Last Admin: 12/24/18 04:37 Dose: 20 mg Hydralazine HCl (Apresoline) 100 mg PO TID [facility] Last Admin: 01/05/19 10:03 Dose: 100 mg Potassium Chloride 40 meq/ (Sodium Chloride) 270 mls @ 135 mls/hr IVPB ASDIR PRN PRN Reason: FOR SERUM K+ 2.5 - 3.5 Potassium Chloride 40 meq/ (Device) 100 mls @ 50 mls/hr IVPB ASDIR PRN PRN Reason: FOR SERUM K+ 2.5 - 3.5 Last Admin: 12/11/18 20:03 Dose: 100 mls Magnesium Sulfate 1 gm/ Sodium (Chloride) 102 mls @ 102 mls/hr IV PRN PRN PRN Reason: MAG LEVEL 1.4 - 2.0 Magnesium Sulfate 2 gm/ Device 100 mls @ 100 mls/hr IVPB ASDIR PRN PRN Reason: MAGNESIUM < 1.4 Potassium Phosphate 9 mmol/ (Sodium Chloride) 103 mls @ 25.75 mls/hr IVPB ASDIR PRN PRN Reason: Phosphate 1.0-1.8 Potassium Phosphate 12 mmol/ (Sodium Chloride) 254 mls @ 63.5 mls/hr IV ASDIR PRN PRN Reason: Serum phosphate 0.5-0.9 Potassium Phosphate 15 mmol/ (Sodium Chloride) 255 mls @ 63.75 mls/hr IV ASDIR PRN PRN Reason: Serum Phos < 0.5 Labetalol HCl (Normodyne) 100 mg PO BID [facility] Last Admin: 01/05/19 10:12 Dose: 100 mg Labetalol HCl (Labetalol Hcl) 20 mg SLOW IVP Q15MIN PRN PRN Reason: SBP > 140 Last Admin: 12/27/18 02:32 Dose: 20 mg Levetiracetam (Keppra Oral Solution) 500 mg PO BID [facility] Last Admin: 01/05/19 10:05 Dose: 500 mg Magnesium Oxide (Magnesium Oxide) 400 mg PO BIDPRN PRN PRN Reason: FOR SERUM MAG 1.4 - 2.0 Magnesium Oxide (Magnesium Oxide) 800 mg PO PRN PRN PRN Reason: FOR SERUM MAG < 1.4 Miscellaneous Medication (Phos-Nak) 1 pkt PO TIDPRN PRN PRN Reason: FOR PHOS LEVEL 1.0 - 1.8 Last Admin: 12/13/18 21:51 Dose: 1 pkt Miscellaneous Medication (Phos-Nak) 2 pkt PO TIDPRN PRN PRN Reason: FOR PHOS LEVEL 0.5 - 1.0 Last Admin: 12/12/18 11:20 Dose: 2 pkt Discontinue Previous Narcotic Pain Medications And Benzodiazepines 1 each FS .ONE [facility] Stop: 01/09/19 21:37 Ccu Electrolyte (Replacement Protocol) 0 each FS PRN PRN PRN Reason: FOR ELECTROLYTE REPLACEMENT Ondansetron HCl (Zofran) 4 mg IVP BIDPRN PRN PRN Reason: Nausea/Vomiting Pantoprazole Sodium (Protonix) 40 mg PER TUBE DAILY [facility] Last Admin: 01/05/19 10:03 Dose: 40 mg Potassium Chloride (K-Dur) 40 meq PO ASDIR PRN PRN Reason: FOR SERUM K+ 2.5 - 3.5 Last Admin: 12/27/18 20:37 Dose: 40 meq Potassium Chloride (Klor-Con) 40 meq PER TUBE ASDIR PRN PRN Reason: FOR SERUM K+ 2.5-3.5 Last Admin: 12/28/18 20:05 Dose: 40 meq Scopolamine (Transderm Scop) 1.5 mg TD Q3D [facility] Last Admin: 01/05/19 10:05 Dose: 1.5 mg Sodium Bicarbonate (Bicarbonate, Sodium) 650 mg PER TUBE .PER PROTOCOL PRN PRN Reason: ENTERAL TUBE OCCLUSION Sodium Chloride (Flush - Normal Saline) 10 ml IVF PRN PRN PRN Reason: Saline Flush Last Admin: 12/31/18 10:00 Dose: 10 ml
[2019-01-06] MEDS ORDERED: Dextrose 5% in Water 1,000 ML IV PRN (06:19)
[2019-01-06] MEDS ORDERED: Dextrose 50% Abboject 50 ML SYRINGE IVP PRN (06:19)
[2019-01-06] MEDS: HumaLOG 300 UNITS/3 ML VIAL SC PRN ×2 (06:24→12:51)
--- NOTE | 2019-01-06 08:32 | PRG ---
DATE OF SERVICE: 01/06/2019 SUBJECTIVE: The patient is doing well. No complaints. I changed at her trach with a 6.0 cuffless Shiley today. She is able to phonate a little better. OBJECTIVE: VITAL SIGNS: Temperature 98.0, pulse , respirations 20, O2 saturation 100%, blood pressure . HEENT: Unremarkable. NECK: Trach in good position. LUNGS: Clear. CARDIAC: S1, S2. Regular. ABDOMEN: Soft. EXTREMITIES: No edema. ASSESSMENT: Stable status post trach placement after intracranial bleed. PLAN: Continue speaking valve trials. I will see as needed. Job ID: [id number]
[2019-01-06] MEDS: Labetalol 100 MG TAB PO SCH ×2 (09:20→20:27)
[2019-01-06] MEDS: cloNIDine 0.3 MG TAB PER TUBE SCH ×3 (09:21→20:27)
[2019-01-06] MEDS: hydrALAZINE 25 MG TAB PO SCH ×3 (09:22→20:27)
[2019-01-06] MEDS: Furosemide 40 MG TAB PER TUBE SCH ×2 (09:23→16:08)
[2019-01-06] MEDS: Amlodipine 10 MG TAB PER TUBE SCH (09:23)
[2019-01-06] MEDS: levETIRAcetam 500 mg/5 ml Oral Solution PO SCH ×2 (09:23→20:28)
[2019-01-06] MEDS: Pantoprazole 40 MG GRANULES PACKET PER TUBE SCH (09:24)
--- NOTE | 2019-01-06 10:19 | PDOC.PN ---
- Subjective Encounter Start Date: 01/06/19 Encounter Start Time: 08:45 Subjective: awake, waves left hand -: had speaking valve placed and cufless 6 trach - Objective MAR Reviewed: Yes Vital Signs & Weight: Vital Signs (12 hours) Temp Pulse Resp BP BP Pulse Ox 01/06/19 09:23 82 125/89 01/06/19 09:22 82 125/89 01/06/19 09:21 125/89 01/06/19 09:20 73 125/89 01/06/19 07:19 98.0 F 80 20 118/78 100 01/06/19 06:40 98 01/06/19 06:39 85 20 98 01/06/19 04:00 98.5 F 82 20 124/70 20 L 01/06/19 02:27 99 01/06/19 00:00 99.0 F 79 20 107/73 96 01/05/19 23:28 80 18 99 Weight Admit Weight 245 lb 9.519 oz Weight 236 lb Most Recent Monitor Data Heart Rate from ECG 81 NIBP 155/104 NIBP BP-Mean 121 Respiration from ECG 17 SpO2 100 I&O: 01/05/19 01/06/19 01/07/19 06:59 06:59 06:59 Intake Total 2898 3727 Output Total 1100 1700 Balance 1798 2026 Result Diagrams: 12/23/18 05:34 01/01/19 08:39 Additional Labs: Accuchecks 01/06/19 01/05/19 01/05/19 05:01 20:19 15:19 POC Glucose 210 H 136 H 113 H 01/05/19 10:56 POC Glucose 154 H Phys Exam - Physical Examination HEENT: PERRLA, moist MMs Neck: no JVD trach+ Respiratory: no wheezing, no rales Cardiovascular: RRR, no significant murmur Gastrointestinal: soft, non-tender, positive bowel sounds peg+ Musculoskeletal: no edema, pulses present right hemiplegia, aphasia, dysphagia Dx/Plan (1) ICH (intracerebral hemorrhage) Code(s): I61.9 - NONTRAUMATIC INTRACEREBRAL HEMORRHAGE, UNSPECIFIED Status: Acute Qualifiers: Intracerebral hemorrhage etiology: nontraumatic Laterality: left Comment: left thalamic with extension and edema initially (2) Hypertensive emergency Code(s): I16.1 - HYPERTENSIVE EMERGENCY Status: Resolved Comment: stable htn now (3) Obesity Code(s): E66.9 - OBESITY, UNSPECIFIED Status: Chronic Qualifiers: Obesity classification: adult class 3 (BMI >= 40) Body mass index: BMI 40.0 -44.9 (4) Acute encephalopathy Code(s): G93.40 - ENCEPHALOPATHY, UNSPECIFIED Status: Acute Comment: Secondary to ICH, improved (5) DM type 2 (diabetes mellitus, type 2) Status: Acute Qualifiers: Diabetes mellitus mcfp insulin use: without mcfp use Diabetes mellitus complication status: with unspecified complications Qualified Code(s) : E11.8 - Type 2 diabetes mellitus with unspecified complications - Plan awaiting placement -: is on norvasc, labetalol, clonidine, hydralazine, lasix and keppra -: to mobilize with PT, speech ongoing eval for swallowing assesment -: peg feeding, free water -: dm on sliding scale insulin * . Review of Systems - Medications/Allergies Allergies/Adverse Reactions: Allergies Allergy/AdvReac Type Severity Reaction Status Date / Time No Known Drug Allergies Allergy Verified 12/10/18 22:13 Medications: Current Medications Acetaminophen (Tylenol Elixir) 1,000 mg PER TUBE Q6H PRN PRN Reason: Headache/Fever or Pain Last Admin: 12/23/18 09:04 Dose: 1,000 mg Albuterol/Ipratropium (Duoneb) 3 ml NEB [id number] [facility] Last Admin: 01/06/19 06:39 Dose: 3 ml Amlodipine Besylate (Norvasc) 10 mg PER TUBE DAILY [facility] Last Admin: 01/06/19 09:23 Dose: 10 mg Lipase/Protease/Amylase ([place] [id number]) 1 cap FS .PER PROTOCOL PRN PRN Reason: TUBE OCCLUSION PROTOCOL Clonidine (Catapres) 0.3 mg PER TUBE TID [facility] Last Admin: 01/06/19 09:21 Dose: 0.3 mg Dextrose/Water (Dextrose 50%) 25 gm IVP PRN PRN PRN Reason: HYPOGLYCEMIA PROTOCOL Furosemide (Lasix) 40 mg PER TUBE 0900,1400 [facility] Last Admin: 01/06/19 09:23 Dose: 40 mg Glucagon (Glucagon) 1 mg IM PRN PRN PRN Reason: HYPOGLYCEMIA PROTOCOL Hydralazine HCl (Apresoline) 20 mg SLOW IVP Q15MIN PRN PRN Reason: SBP>140 Last Admin: 12/24/18 04:37 Dose: 20 mg Hydralazine HCl (Apresoline) 100 mg PO TID [facility] Last Admin: 01/06/19 09:22 Dose: 100 mg Potassium Chloride 40 meq/ (Sodium Chloride) 270 mls @ 135 mls/hr IVPB ASDIR PRN PRN Reason: FOR SERUM K+ 2.5 - 3.5 Potassium Chloride 40 meq/ (Device) 100 mls @ 50 mls/hr IVPB ASDIR PRN PRN Reason: FOR SERUM K+ 2.5 - 3.5 Last Admin: 12/11/18 20:03 Dose: 100 mls Magnesium Sulfate 1 gm/ Sodium (Chloride) 102 mls @ 102 mls/hr IV PRN PRN PRN Reason: MAG LEVEL 1.4 - 2.0 Magnesium Sulfate 2 gm/ Device 100 mls @ 100 mls/hr IVPB ASDIR PRN PRN Reason: MAGNESIUM < 1.4 Potassium Phosphate 9 mmol/ (Sodium Chloride) 103 mls @ 25.75 mls/hr IVPB ASDIR PRN PRN Reason: Phosphate 1.0-1.8 Potassium Phosphate 12 mmol/ (Sodium Chloride) 254 mls @ 63.5 mls/hr IV ASDIR PRN PRN Reason: Serum phosphate 0.5-0.9 Potassium Phosphate 15 mmol/ (Sodium Chloride) 255 mls @ 63.75 mls/hr IV ASDIR PRN PRN Reason: Serum Phos < 0.5 Dextrose/Water (D5w) 1,000 mls @ 0 mls/hr IV INF PRN PRN Reason: HYPOGLYCEMIA PROTOCOL Insulin Human Lispro (Humalog) 0 units SC .MILD SLIDING SCALE PRN; Protocol PRN Reason: MILD SLIDING SCALE Last Admin: 01/06/19 06:24 Dose: 3 unit Labetalol HCl (Normodyne) 100 mg PO BID [facility] Last Admin: 01/06/19 09:20 Dose: 100 mg Labetalol HCl (Labetalol Hcl) 20 mg SLOW IVP Q15MIN PRN PRN Reason: SBP > 140 Last Admin: 12/27/18 02:32 Dose: 20 mg Levetiracetam (Keppra Oral Solution) 500 mg PO BID [facility] Last Admin: 01/06/19 09:23 Dose: 500 mg Magnesium Oxide (Magnesium Oxide) 400 mg PO BIDPRN PRN PRN Reason: FOR SERUM MAG 1.4 - 2.0 Magnesium Oxide (Magnesium Oxide) 800 mg PO PRN PRN PRN Reason: FOR SERUM MAG < 1.4 Miscellaneous Medication (Phos-Nak) 1 pkt PO TIDPRN PRN PRN Reason: FOR PHOS LEVEL 1.0 - 1.8 Last Admin: 12/13/18 21:51 Dose: 1 pkt Miscellaneous Medication (Phos-Nak) 2 pkt PO TIDPRN PRN PRN Reason: FOR PHOS LEVEL 0.5 - 1.0 Last Admin: 12/12/18 11:20 Dose: 2 pkt Discontinue Previous Narcotic Pain Medications And Benzodiazepines 1 each FS .ONE [facility] Stop: 01/09/19 21:37 Ccu Electrolyte (Replacement Protocol) 0 each FS PRN PRN PRN Reason: FOR ELECTROLYTE REPLACEMENT Ondansetron HCl (Zofran) 4 mg IVP BIDPRN PRN PRN Reason: Nausea/Vomiting Pantoprazole Sodium (Protonix) 40 mg PER TUBE DAILY [facility] Last Admin: 01/06/19 09:24 Dose: 40 mg Potassium Chloride (K-Dur) 40 meq PO ASDIR PRN PRN Reason: FOR SERUM K+ 2.5 - 3.5 Last Admin: 12/27/18 20:37 Dose: 40 meq Potassium Chloride (Klor-Con) 40 meq PER TUBE ASDIR PRN PRN Reason: FOR SERUM K+ 2.5-3.5 Last Admin: 12/28/18 20:05 Dose: 40 meq Scopolamine (Transderm Scop) 1.5 mg TD Q3D [facility] Last Admin: 01/05/19 10:05 Dose: 1.5 mg Sodium Bicarbonate (Bicarbonate, Sodium) 650 mg PER TUBE .PER PROTOCOL PRN PRN Reason: ENTERAL TUBE OCCLUSION Sodium Chloride (Flush - Normal Saline) 10 ml IVF PRN PRN PRN Reason: Saline Flush Last Admin: 12/31/18 10:00 Dose: 10 ml
[2019-01-06 12:10] VITALS: BMI 40.7
[2019-01-07] MEDS: HumaLOG 300 UNITS/3 ML VIAL SC PRN (05:36)
--- NOTE | 2019-01-07 09:07 | PRG ---
DATE OF SERVICE: 01/07/2019 SUBJECTIVE: Ms. Villarreal is doing as well as can be expected. She is supposed to go to the [facility] today. OBJECTIVE: VITAL SIGNS: On exam, temperature 98.4, pulse 89, respirations 19, O2 saturation 94%, blood pressure 123/78. HEENT: Unremarkable. NECK: Trach in good position, clean. CARDIAC: S1 and S2 regular. ABDOMEN: Soft. EXTREMITIES: No edema. ASSESSMENT: 1. Status post thalamic hemorrhage. 2. Status post trach for respiratory failure, inability to control secretions. PLAN: Continue trach care. Job ID: [id number]
[2019-01-07] MEDS: Pantoprazole 40 MG GRANULES PACKET PER TUBE SCH (09:46)
[2019-01-07] MEDS: Furosemide 40 MG TAB PER TUBE SCH ×2 (09:46→16:24)
[2019-01-07] MEDS: Amlodipine 10 MG TAB PER TUBE SCH (09:49)
[2019-01-07] MEDS: Labetalol 100 MG TAB PO SCH ×2 (09:49→20:38)
[2019-01-07] MEDS: hydrALAZINE 25 MG TAB PO SCH ×3 (09:49→20:38)
[2019-01-07] MEDS: cloNIDine 0.3 MG TAB PER TUBE SCH ×3 (09:50→20:38)
[2019-01-07] MEDS: levETIRAcetam 500 mg/5 ml Oral Solution PO SCH ×2 (12:08→20:39)
--- NOTE | 2019-01-07 14:41 | PDOC.PN ---
- Subjective Encounter Start Date: 01/07/19 Encounter Start Time: 07:15 Subjective: not in distress, tries to communicate with her left hand -: spo2 good on trach without collar - Objective MAR Reviewed: Yes Vital Signs & Weight: Vital Signs (12 hours) Temp Pulse Pulse Pulse Resp BP BP 01/07/19 12:50 98.7 F 93 18 01/07/19 11:33 96 18 01/07/19 09:50 162/81 H 01/07/19 09:49 77 162/81 H 01/07/19 08:37 88 86 01/07/19 08:00 01/07/19 07:04 98.4 F 89 19 123/78 01/07/19 06:00 01/07/19 05:58 88 18 01/07/19 05:21 98.7 F 88 20 BP Pulse Ox Pulse Ox Pulse Ox 01/07/19 12:50 148/81 H 100 01/07/19 11:33 97 01/07/19 09:50 01/07/19 09:49 01/07/19 08:37 96 100 01/07/19 08:00 94 L 01/07/19 07:04 94 L 01/07/19 06:00 97 01/07/19 05:58 97 01/07/19 05:21 143/83 H 98 Weight Admit Weight 245 lb 9.519 oz Weight 237 lb 6.4 oz Most Recent Monitor Data Heart Rate from ECG 81 NIBP 155/104 NIBP BP-Mean 121 Respiration from ECG 17 SpO2 100 I&O: 01/06/19 01/07/19 01/08/19 06:59 06:59 06:59 Intake Total 3727 2842 594 Output Total 1700 1200 Balance 7 1642 594 Result Diagrams: 12/23/18 05:34 01/01/19 08:39 Additional Labs: Accuchecks 01/07/19 01/07/19 01/06/19 11:15 05:26 20:13 POC Glucose 195 H 164 H 107 01/06/19 16:09 POC Glucose 126 H Phys Exam - Physical Examination HEENT: PERRLA, moist MMs Neck: no JVD trach+ Respiratory: no wheezing, no rales Cardiovascular: RRR, no significant murmur Gastrointestinal: soft, no distention, positive bowel sounds peg+ Musculoskeletal: no edema, pulses present right hemiplegia Dx/Plan (1) ICH (intracerebral hemorrhage) Code(s): I61.9 - NONTRAUMATIC INTRACEREBRAL HEMORRHAGE, UNSPECIFIED Status: Acute Qualifiers: Intracerebral hemorrhage etiology: nontraumatic Laterality: left Comment: left thalamic with extension and edema initially (2) Hypertensive emergency Code(s): I16.1 - HYPERTENSIVE EMERGENCY Status: Resolved Comment: stable htn now (3) Obesity Code(s): E66.9 - OBESITY, UNSPECIFIED Status: Chronic Qualifiers: Obesity classification: adult class 3 (BMI >= 40) Body mass index: BMI 40.0 -44.9 (4) Acute encephalopathy Code(s): G93.40 - ENCEPHALOPATHY, UNSPECIFIED Status: Acute Comment: Secondary to ICH, improved (5) DM type 2 (diabetes mellitus, type 2) Status: Acute Qualifiers: 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 Review of Systems - Medications/Allergies Allergies/Adverse Reactions: Allergies Allergy/AdvReac Type Severity Reaction Status Date / Time No Known Drug Allergies Allergy Verified 12/10/18 22:13 Medications: Current Medications Acetaminophen (Tylenol Elixir) 1,000 mg PER TUBE Q6H PRN PRN Reason: Headache/Fever or Pain Last Admin: 12/23/18 09:04 Dose: 1,000 mg Albuterol/Ipratropium (Duoneb) 3 ml NEB [id number] [facility] Last Admin: 01/07/19 11:33 Dose: 3 ml Amlodipine Besylate (Norvasc) 10 mg PER TUBE DAILY [facility] Last Admin: 01/07/19 09:49 Dose: 10 mg Lipase/Protease/Amylase ([place] [id number]) 1 cap FS .PER PROTOCOL PRN PRN Reason: TUBE OCCLUSION PROTOCOL Clonidine (Catapres) 0.3 mg PER TUBE TID [facility] Last Admin: 01/07/19 09:50 Dose: 0.3 mg Dextrose/Water (Dextrose 50%) 25 gm IVP PRN PRN PRN Reason: HYPOGLYCEMIA PROTOCOL Furosemide (Lasix) 40 mg PER TUBE 0900,1400 [facility] Last Admin: 01/07/19 09:46 Dose: 40 mg Glucagon (Glucagon) 1 mg IM PRN PRN PRN Reason: HYPOGLYCEMIA PROTOCOL Hydralazine HCl (Apresoline) 20 mg SLOW IVP Q15MIN PRN PRN Reason: SBP>140 Last Admin: 12/24/18 04:37 Dose: 20 mg Hydralazine HCl (Apresoline) 100 mg PO TID [facility] Last Admin: 01/07/19 09:49 Dose: 100 mg Dextrose/Water (D5w) 1,000 mls @ 0 mls/hr IV INF PRN PRN Reason: HYPOGLYCEMIA PROTOCOL Insulin Human Lispro (Humalog) 0 units SC .MILD SLIDING SCALE PRN; Protocol PRN Reason: MILD SLIDING SCALE Last Admin: 01/07/19 05:36 Dose: 2 unit Labetalol HCl (Normodyne) 100 mg PO BID [facility] Last Admin: 01/07/19 09:49 Dose: 100 mg Labetalol HCl (Labetalol Hcl) 20 mg SLOW IVP Q15MIN PRN PRN Reason: SBP > 140 Last Admin: 12/27/18 02:32 Dose: 20 mg Levetiracetam (Keppra Oral Solution) 500 mg PO BID [facility] Last Admin: 01/07/19 12:08 Dose: 500 mg Discontinue Previous Narcotic Pain Medications And Benzodiazepines 1 each FS .ONE [facility] Stop: 01/09/19 21:37 Ccu Electrolyte (Replacement Protocol) 0 each FS PRN PRN PRN Reason: FOR ELECTROLYTE REPLACEMENT Ondansetron HCl (Zofran) 4 mg IVP BIDPRN PRN PRN Reason: Nausea/Vomiting Pantoprazole Sodium (Protonix) 40 mg PER TUBE DAILY [facility] Last Admin: 01/07/19 09:46 Dose: 40 mg Scopolamine (Transderm Scop) 1.5 mg TD Q3D [facility] Last Admin: 01/05/19 10:05 Dose: 1.5 mg Sodium Bicarbonate (Bicarbonate, Sodium) 650 mg PER TUBE .PER PROTOCOL PRN PRN Reason: ENTERAL TUBE OCCLUSION
--- NOTE | 2019-01-07 15:01 | CT ---
CT OF THORACIC SPINE WITHOUT CONTRAST: INDICATION: History of fall with back pain. FINDINGS: There is a tracheostomy in place. There are small bilateral pleural effusions. There is bibasilar atelectasis. No acute fracture or subluxation is evident. There is multilevel spondylosis of the thoracic spine. The osseous central canal appears relatively well preserved. Spinal alignment appears within normal limits. IMPRESSION: 1. Multilevel spondylosis of the thoracic spine. 2. No definite acute fracture or subluxation demonstrated. 3. Small bilateral pleural effusions. POS: [facility]
--- NOTE | 2019-01-07 15:13 | CT ---
CT LUMBAR SPINE NONCONTRAST: DATE: 01/07/2019. HISTORY: A 48-year-old female with acute traumatic low back pain after fall. COMPARISON: None. FINDINGS: There are 5 lumbar-type vertebrae. Vertebral body heights are maintained. There is no spondylolysis or spondylolisthesis. No fracture is identified. At L5-S1, there is severe disk space narrowing, e nd plate sclerosis, vacuum disk phenomenon, and moderately large central and bilateral paracentral br oad-based disk-osteophyte complex that protrudes into the anterior aspect of the spinal canal, causin g high-grade lateral recess stenosis bilaterally, and mild to moderate central spinal canal stenosis. There is moderate bilateral neural foraminal stenosis at this level. The rest of the disk spaces are maintained. There is no high-grade central spinal canal stenosis at any other level. There is a large volume of stool distending the rectum. An IUD is noted. Vacuum joint phenomenon in the bilateral SI joints. IMPRESSION: 1. No fracture. 2. Severe degenerative disk disease isolated to the L5-S1 level, where there is high-grade lateral r ecess stenosis bilaterally. 3. Osteoarthrosis of bilateral sacroiliac joints. 4. constipation. POS: [facility]
[2019-01-07] MEDS ORDERED: levETIRAcetam 500 mg/5 ml Oral Solution PO SCH (21:00)
[2019-01-08] MEDS: hydrALAZINE 25 MG TAB PO SCH ×3 (09:02→21:03)
[2019-01-08] MEDS: Amlodipine 10 MG TAB PER TUBE SCH (09:02)
[2019-01-08] MEDS: Pantoprazole 40 MG GRANULES PACKET PER TUBE SCH (09:02)
[2019-01-08] MEDS: Furosemide 40 MG TAB PER TUBE SCH ×2 (09:02→14:07)
[2019-01-08] MEDS: Labetalol 100 MG TAB PO SCH ×2 (09:02→21:03)
[2019-01-08] MEDS: Scopolamine 1.5 mg/72 hour Patch TD SCH (09:03)
[2019-01-08] MEDS: cloNIDine 0.3 MG TAB PER TUBE SCH ×3 (09:03→21:03)
[2019-01-08] MEDS: levETIRAcetam 500 mg/5 ml Oral Solution PO SCH ×2 (10:19→21:04)
[2019-01-08] MEDS: HumaLOG 300 UNITS/3 ML VIAL SC PRN (11:58)
--- NOTE | 2019-01-08 13:30 | PDOC.PN ---
- Subjective Encounter Start Date: 01/08/19 Encounter Start Time: 07:30 Subjective: awake, not in distress - Objective MAR Reviewed: Yes Vital Signs & Weight: Vital Signs (12 hours) Temp Pulse Resp BP BP BP Pulse Ox 01/08/19 13:19 79 16 95 01/08/19 09:02 74 163/94 H 01/08/19 08:31 98.5 F 71 20 163/94 H 100 01/08/19 08:27 98 01/08/19 08:26 74 16 98 01/08/19 08:00 100 01/08/19 04:00 97.6 F 79 14 133/83 97 01/08/19 03:09 99 Weight Admit Weight 245 lb 9.519 oz Weight 237 lb 6.4 oz Most Recent Monitor Data Heart Rate from ECG 81 NIBP 155/104 NIBP BP-Mean 121 Respiration from ECG 17 SpO2 100 I&O: 01/07/19 01/08/19 01/09/19 06:59 06:59 06:59 Intake Total 2842 2616 594 Output Total 1200 600 Balance 1642 2015 594 Result Diagrams: 12/23/18 05:34 01/01/19 08:39 Additional Labs: Accuchecks 01/08/19 01/07/19 01/07/19 11:34 20:37 15:14 POC Glucose 201 H 124 H 140 H Phys Exam - Physical Examination HEENT: PERRLA, moist MMs Neck: no JVD, supple trach+ Respiratory: no wheezing, no rales Cardiovascular: RRR, no significant murmur Gastrointestinal: soft, non-tender, positive bowel sounds peg+ Musculoskeletal: no edema, pulses present right hemiplegia, likely hemineglect Psychiatric: A&O x 3 Dx/Plan (1) ICH (intracerebral hemorrhage) Code(s): I61.9 - NONTRAUMATIC INTRACEREBRAL HEMORRHAGE, UNSPECIFIED Status: Acute Qualifiers: Intracerebral hemorrhage etiology: nontraumatic Laterality: left Comment: left thalamic with extension and edema initially (2) Hypertensive emergency Code(s): I16.1 - HYPERTENSIVE EMERGENCY Status: Resolved Comment: stable htn now (3) Obesity Code(s): E66.9 - OBESITY, UNSPECIFIED Status: Chronic Qualifiers: Obesity classification: adult class 3 (BMI >= 40) Body mass index: BMI 40.0 -44.9 (4) Acute encephalopathy Code(s): G93.40 - ENCEPHALOPATHY, UNSPECIFIED Status: Acute Comment: Secondary to ICH, improved (5) DM type 2 (diabetes mellitus, type 2) Status: Acute Qualifiers: Diabetes mellitus halfway insulin use: without rodent exterminator use Diabetes mellitus complication status: with unspecified complications Qualified Code(s) : E11.8 - Type 2 diabetes mellitus with unspecified complications - Plan snf is waiting for trach supplies prior to accepting her -: may dc anytime if they are ready to take her -: is on trach with no supplemental oxygen and saturating well -: continue current meds -: hemostable * . Review of Systems - Medications/Allergies Allergies/Adverse Reactions: Allergies Allergy/AdvReac Type Severity Reaction Status Date / Time No Known Drug Allergies Allergy Verified 12/10/18 22:13 Medications: Current Medications Acetaminophen (Tylenol Elixir) 1,000 mg PER TUBE Q6H PRN PRN Reason: Headache/Fever or Pain Last Admin: 12/23/18 09:04 Dose: 1,000 mg Albuterol/Ipratropium (Duoneb) 3 ml NEB [id number] [facility] Last Admin: 01/08/19 13:19 Dose: 3 ml Amlodipine Besylate (Norvasc) 10 mg PER TUBE DAILY [facility] Last Admin: 01/08/19 09:02 Dose: 10 mg Lipase/Protease/Amylase ([place] [id number]) 1 cap FS .PER PROTOCOL PRN PRN Reason: TUBE OCCLUSION PROTOCOL Clonidine (Catapres) 0.3 mg PER TUBE TID [facility] Last Admin: 01/08/19 09:03 Dose: 0.3 mg Dextrose/Water (Dextrose 50%) 25 gm IVP PRN PRN PRN Reason: HYPOGLYCEMIA PROTOCOL Furosemide (Lasix) 40 mg PER TUBE 0900,1400 [facility] Last Admin: 01/08/19 09:02 Dose: 40 mg Glucagon (Glucagon) 1 mg IM PRN PRN PRN Reason: HYPOGLYCEMIA PROTOCOL Hydralazine HCl (Apresoline) 20 mg SLOW IVP Q15MIN PRN PRN Reason: SBP>140 Last Admin: 12/24/18 04:37 Dose: 20 mg Hydralazine HCl (Apresoline) 100 mg PO TID [facility] Last Admin: 01/08/19 09:02 Dose: 100 mg Dextrose/Water (D5w) 1,000 mls @ 0 mls/hr IV INF PRN PRN Reason: HYPOGLYCEMIA PROTOCOL Insulin Human Lispro (Humalog) 0 units SC .MILD SLIDING SCALE PRN; Protocol PRN Reason: MILD SLIDING SCALE Last Admin: 01/08/19 11:58 Dose: 3 unit Labetalol HCl (Normodyne) 100 mg PO BID [facility] Last Admin: 01/08/19 09:02 Dose: 100 mg Labetalol HCl (Labetalol Hcl) 20 mg SLOW IVP Q15MIN PRN PRN Reason: SBP > 140 Last Admin: 12/27/18 02:32 Dose: 20 mg Levetiracetam (Keppra Oral Solution) 500 mg PO BID [facility] Last Admin: 01/08/19 10:19 Dose: 500 mg Discontinue Previous Narcotic Pain Medications And Benzodiazepines 1 each FS .ONE [facility] Stop: 01/09/19 21:37 Ondansetron HCl (Zofran) 4 mg IVP BIDPRN PRN PRN Reason: Nausea/Vomiting Pantoprazole Sodium (Protonix) 40 mg PER TUBE DAILY [facility] Last Admin: 01/08/19 09:02 Dose: 40 mg Scopolamine (Transderm Scop) 1.5 mg TD Q3D [facility] Last Admin: 01/08/19 09:03 Dose: 1.5 mg Sodium Bicarbonate (Bicarbonate, Sodium) 650 mg PER TUBE .PER PROTOCOL PRN PRN Reason: ENTERAL TUBE OCCLUSION
[2019-01-09] MEDS: Amlodipine 10 MG TAB PER TUBE SCH (09:41)
[2019-01-09] MEDS: hydrALAZINE 25 MG TAB PO SCH ×3 (09:41→20:01)
[2019-01-09] MEDS: cloNIDine 0.3 MG TAB PER TUBE SCH ×3 (09:41→20:00)
[2019-01-09] MEDS: Furosemide 40 MG TAB PER TUBE SCH ×2 (09:41→14:37)
[2019-01-09] MEDS: Pantoprazole 40 MG GRANULES PACKET PER TUBE SCH (09:41)
[2019-01-09] MEDS: Labetalol 100 MG TAB PO SCH ×2 (09:42→20:01)
--- NOTE | 2019-01-09 10:28 | PDOC.PN ---
- Subjective Encounter Start Date: 01/09/19 Encounter Start Time: 07:40 Subjective: awake, no sob, is on trach -: moving left extremities freely - Objective MAR Reviewed: Yes Vital Signs & Weight: Vital Signs (12 hours) Temp Pulse Resp BP BP BP Pulse Ox 01/09/19 09:42 75 01/09/19 09:41 75 151/98 H 01/09/19 07:35 98 01/09/19 07:33 75 16 98 01/09/19 07:00 98.2 F 79 18 148/86 H 100 01/09/19 04:00 98.9 F 75 16 128/86 98 01/09/19 00:00 98 F 77 18 119/78 96 01/08/19 23:26 77 16 97 Weight Admit Weight 245 lb 9.519 oz Weight 237 lb 6.4 oz Most Recent Monitor Data Heart Rate from ECG 81 NIBP 155/104 NIBP BP-Mean 121 Respiration from ECG 17 SpO2 100 I&O: 01/08/19 01/09/19 01/10/19 06:59 06:59 06:59 Intake Total 2616 3901 Output Total 600 1075 Balance 20156 Result Diagrams: 12/23/18 05:34 01/01/19 08:39 Additional Labs: Accuchecks 01/09/19 01/08/19 01/08/19 04:29 16:32 11:34 POC Glucose 128 H 91 201 H 01/08/19 04:56 POC Glucose 164 H Phys Exam - Physical Examination HEENT: PERRLA, moist MMs Neck: no JVD, supple trach+ Respiratory: no wheezing, no rales Cardiovascular: RRR, no significant murmur Gastrointestinal: soft, non-tender, no distention, positive bowel sounds peg+ Musculoskeletal: no edema, pulses present right hemiplegia, dysphagia Psychiatric: A&O x 3 Dx/Plan (1) ICH (intracerebral hemorrhage) Code(s): I61.9 - NONTRAUMATIC INTRACEREBRAL HEMORRHAGE, UNSPECIFIED Status: Acute Qualifiers: Intracerebral hemorrhage etiology: nontraumatic Laterality: left Comment: left thalamic with extension and edema initially (2) Hypertensive emergency Code(s): I16.1 - HYPERTENSIVE EMERGENCY Status: Resolved Comment: stable htn now (3) Obesity Code(s): E66.9 - OBESITY, UNSPECIFIED Status: Chronic Qualifiers: Obesity classification: adult class 3 (BMI >= 40) Body mass index: BMI 40.0 -44.9 (4) Acute encephalopathy Code(s): G93.40 - ENCEPHALOPATHY, UNSPECIFIED Status: Resolved Comment: Secondary to ICH, improved (5) DM type 2 (diabetes mellitus, type 2) Status: Acute Qualifiers: Diabetes mellitus terminal block assembler insulin use: without correction use Diabetes mellitus complication status: with unspecified complications Qualified Code(s) : E11.8 - Type 2 diabetes mellitus with unspecified complications - Plan hemo/neurostable -: awaiting snf to obtain trach supplies prior to transfer -: continue current meds, PT/OT to mobilize more -: speech to help with phonation/aphasia -: asp, fall precautions * . Review of Systems - Medications/Allergies Allergies/Adverse Reactions: Allergies Allergy/AdvReac Type Severity Reaction Status Date / Time No Known Drug Allergies Allergy Verified 12/10/18 22:13 Medications: Current Medications Acetaminophen (Tylenol Elixir) 1,000 mg PER TUBE Q6H PRN PRN Reason: Headache/Fever or Pain Last Admin: 12/23/18 09:04 Dose: 1,000 mg Albuterol/Ipratropium (Duoneb) 3 ml NEB [id number] [facility] Last Admin: 01/09/19 07:33 Dose: 3 ml Amlodipine Besylate (Norvasc) 10 mg PER TUBE DAILY [facility] Last Admin: 01/09/19 09:41 Dose: 10 mg Lipase/Protease/Amylase ([place] [id number]) 1 cap FS .PER PROTOCOL PRN PRN Reason: TUBE OCCLUSION PROTOCOL Clonidine (Catapres) 0.3 mg PER TUBE TID [facility] Last Admin: 01/09/19 09:41 Dose: 0.3 mg Dextrose/Water (Dextrose 50%) 25 gm IVP PRN PRN PRN Reason: HYPOGLYCEMIA PROTOCOL Furosemide (Lasix) 40 mg PER TUBE 0900,1400 [facility] Last Admin: 01/09/19 09:41 Dose: 40 mg Glucagon (Glucagon) 1 mg IM PRN PRN PRN Reason: HYPOGLYCEMIA PROTOCOL Hydralazine HCl (Apresoline) 20 mg SLOW IVP Q15MIN PRN PRN Reason: SBP>140 Last Admin: 12/24/18 04:37 Dose: 20 mg Hydralazine HCl (Apresoline) 100 mg PO TID [facility] Last Admin: 01/09/19 09:41 Dose: 100 mg Dextrose/Water (D5w) 1,000 mls @ 0 mls/hr IV INF PRN PRN Reason: HYPOGLYCEMIA PROTOCOL Insulin Human Lispro (Humalog) 0 units SC .MILD SLIDING SCALE PRN; Protocol PRN Reason: MILD SLIDING SCALE Last Admin: 01/08/19 11:58 Dose: 3 unit Labetalol HCl (Normodyne) 100 mg PO BID [facility] Last Admin: 01/09/19 09:42 Dose: 100 mg Labetalol HCl (Labetalol Hcl) 20 mg SLOW IVP Q15MIN PRN PRN Reason: SBP > 140 Last Admin: 12/27/18 02:32 Dose: 20 mg Levetiracetam (Keppra Oral Solution) 500 mg PO BID [facility] Last Admin: 01/08/19 21:04 Dose: 500 mg Discontinue Previous Narcotic Pain Medications And Benzodiazepines 1 each FS .ONE [facility] Stop: 01/09/19 21:37 Ondansetron HCl (Zofran) 4 mg IVP BIDPRN PRN PRN Reason: Nausea/Vomiting Pantoprazole Sodium (Protonix) 40 mg PER TUBE DAILY [facility] Last Admin: 01/09/19 09:41 Dose: 40 mg Scopolamine (Transderm Scop) 1.5 mg TD Q3D [facility] Last Admin: 01/08/19 09:03 Dose: 1.5 mg Sodium Bicarbonate (Bicarbonate, Sodium) 650 mg PER TUBE .PER PROTOCOL PRN PRN Reason: ENTERAL TUBE OCCLUSION
[2019-01-09] MEDS: levETIRAcetam 500 mg/5 ml Oral Solution PO SCH ×2 (11:19→20:01)
[2019-01-09] MEDS: HumaLOG 300 UNITS/3 ML VIAL SC PRN (11:24)
[2019-01-10 07:19] VITALS: TEMP 98.7
[2019-01-10] MEDS: hydrALAZINE 25 MG TAB PO SCH ×2 (08:45→15:06)
[2019-01-10] MEDS: Labetalol 100 MG TAB PO SCH (08:46)
[2019-01-10] MEDS: cloNIDine 0.3 MG TAB PER TUBE SCH ×2 (08:46→15:07)
[2019-01-10] MEDS: Amlodipine 10 MG TAB PER TUBE SCH (08:47)
[2019-01-10] MEDS: Furosemide 40 MG TAB PER TUBE SCH ×2 (08:47→15:06)
[2019-01-10] MEDS: Pantoprazole 40 MG GRANULES PACKET PER TUBE SCH (08:47)
[2019-01-10] MEDS ORDERED: levETIRAcetam 500 mg/5 ml Oral Solution PO SCH (09:00)
[2019-01-10] MEDS: Acetaminophen 650 MG/20.3 ML UDCUP PER TUBE PRN (09:18)
--- NOTE | 2019-01-10 13:20 | PDOC.PN ---
- Subjective Encounter Start Date: 01/10/19 Encounter Start Time: 07:00 Subjective: awake, not in distress - Objective MAR Reviewed: Yes Vital Signs & Weight: Vital Signs (12 hours) Temp Pulse Resp BP BP Pulse Ox 01/10/19 13:09 85 16 99 01/10/19 08:47 83 175/90 H 01/10/19 08:46 83 175/90 H 01/10/19 08:45 83 175/93 H 01/10/19 07:22 98 01/10/19 07:19 98.7 F 92 16 175/90 H 98 01/10/19 04:00 98 F 86 18 140/92 H 98 Weight Admit Weight 245 lb 9.519 oz Weight 237 lb 6.4 oz Most Recent Monitor Data Heart Rate from ECG 81 NIBP 155/104 NIBP BP-Mean 121 Respiration from ECG 17 SpO2 100 I&O: 01/09/19 01/10/19 01/11/19 06:59 06:59 06:59 Intake Total 3901 2419 Output Total 1075 1350 Balance 2826 1069 Result Diagrams: 12/23/18 05:34 01/01/19 08:39 Additional Labs: Accuchecks 01/10/19 01/10/19 01/09/19 11:48 04:25 20:06 POC Glucose 158 H 121 H 146 H 01/09/19 01/09/19 01/08/19 16:53 11:18 20:34 POC Glucose 162 H 193 H 127 H Phys Exam - Physical Examination HEENT: PERRLA Neck: no JVD, supple Respiratory: no wheezing, no rales Cardiovascular: RRR, no significant murmur Gastrointestinal: soft, no distention, positive bowel sounds Musculoskeletal: no edema, pulses present right hemiplegia, dysphagia Dx/Plan (1) ICH (intracerebral hemorrhage) Code(s): I61.9 - NONTRAUMATIC INTRACEREBRAL HEMORRHAGE, UNSPECIFIED Status: Acute Qualifiers: Intracerebral hemorrhage etiology: nontraumatic Laterality: left Comment: left thalamic with extension and edema initially (2) Hypertensive emergency Code(s): I16.1 - HYPERTENSIVE EMERGENCY Status: Resolved Comment: stable htn now (3) Obesity Code(s): E66.9 - OBESITY, UNSPECIFIED Status: Chronic Qualifiers: Obesity classification: adult class 3 (BMI >= 40) Body mass index: BMI 40.0 -44.9 (4) Acute encephalopathy Code(s): G93.40 - ENCEPHALOPATHY, UNSPECIFIED Status: Resolved Comment: Secondary to ICH, improved (5) DM type 2 (diabetes mellitus, type 2) Status: Acute Qualifiers: Diabetes mellitus terminal gauger insulin use: without terminal gauger use Diabetes mellitus complication status: with unspecified complications Qualified Code(s) : E11.8 - Type 2 diabetes mellitus with unspecified complications - Plan awaiting placement -: may dc anytime if above is ready -: continue current htn meds as below -: PT to mobilize more as tolerated -: speech for ongoing eval, speaking valve, peg feeds * . Review of Systems - Medications/Allergies Allergies/Adverse Reactions: Allergies Allergy/AdvReac Type Severity Reaction Status Date / Time No Known Drug Allergies Allergy Verified 12/10/18 22:13 Medications: Current Medications Acetaminophen (Tylenol Elixir) 1,000 mg PER TUBE Q6H PRN PRN Reason: Headache/Fever or Pain Last Admin: 01/10/19 09:18 Dose: 1,000 mg Albuterol/Ipratropium (Duoneb) 3 ml NEB [id number] [facility] Last Admin: 01/10/19 13:09 Dose: 3 ml Amlodipine Besylate (Norvasc) 10 mg PER TUBE DAILY [facility] Last Admin: 01/10/19 08:47 Dose: 10 mg Lipase/Protease/Amylase ([place] [id number]) 1 cap FS .PER PROTOCOL PRN PRN Reason: TUBE OCCLUSION PROTOCOL Clonidine (Catapres) 0.3 mg PER TUBE TID [facility] Last Admin: 01/10/19 08:46 Dose: 0.3 mg Dextrose/Water (Dextrose 50%) 25 gm IVP PRN PRN PRN Reason: HYPOGLYCEMIA PROTOCOL Furosemide (Lasix) 40 mg PER TUBE 0900,1400 [facility] Last Admin: 01/10/19 08:47 Dose: 40 mg Glucagon (Glucagon) 1 mg IM PRN PRN PRN Reason: HYPOGLYCEMIA PROTOCOL Hydralazine HCl (Apresoline) 20 mg SLOW IVP Q15MIN PRN PRN Reason: SBP>140 Last Admin: 12/24/18 04:37 Dose: 20 mg Hydralazine HCl (Apresoline) 100 mg PO TID [facility] Last Admin: 01/10/19 08:45 Dose: 100 mg Dextrose/Water (D5w) 1,000 mls @ 0 mls/hr IV INF PRN PRN Reason: HYPOGLYCEMIA PROTOCOL Insulin Human Lispro (Humalog) 0 units SC .MILD SLIDING SCALE PRN; Protocol PRN Reason: MILD SLIDING SCALE Last Admin: 01/09/19 11:24 Dose: 2 unit Labetalol HCl (Normodyne) 100 mg PO BID [facility] Last Admin: 01/10/19 08:46 Dose: 100 mg Labetalol HCl (Labetalol Hcl) 20 mg SLOW IVP Q15MIN PRN PRN Reason: SBP > 140 Last Admin: 12/27/18 02:32 Dose: 20 mg Levetiracetam (Keppra Oral Solution) 500 mg PO BID [facility] Last Admin: 01/10/19 09:18 Dose: 500 mg Ondansetron HCl (Zofran) 4 mg IVP BIDPRN PRN PRN Reason: Nausea/Vomiting Pantoprazole Sodium (Protonix) 40 mg PER TUBE DAILY [facility] Last Admin: 01/10/19 08:47 Dose: 40 mg Scopolamine (Transderm Scop) 1.5 mg TD Q3D [facility] Last Admin: 01/08/19 09:03 Dose: 1.5 mg Sodium Bicarbonate (Bicarbonate, Sodium) 650 mg PER TUBE .PER PROTOCOL PRN PRN Reason: ENTERAL TUBE OCCLUSION
[2019-01-10 15:47] VITALS: BP 133/85
--- NOTE | 2019-01-11 10:58 | DIS ---
DATE OF ADMISSION: 12/10/2018 DATE OF DISCHARGE: 01/10/2019 The patient is a 48-year-old female with poorly controlled hypertension, who was seen on 12/10/2018, in the emergency department after she suddenly became dizzy and unresponsive. She was found to be in hypertensive crisis at that time with a systolic blood pressure of 260. She was evaluated with noncontrast CT head which showed left posterior thalamic hemorrhage with some extension into the brainstem and some extension into the ventricular system as well as to the left hemisphere. There is moderate mass effect with development of subtle hydrocephalus. The patient was admitted to the ICU for blood pressure management as well as intubated in the emergency department for further treatment of her deterioration. She required EVD placement which was weaned during her admission course. She ultimately had minimal improvement in her neurologic exam and required trach and PEG. [facility] to a [facility] facility. Job ID: [id number]
--- NOTE | 2019-01-12 16:58 | DIS ---
DATE OF ADMISSION: 12/10/2018 DATE OF DISCHARGE: 01/10/2019 DISCHARGE DISPOSITION: [facility]. PRIMARY DISCHARGE DIAGNOSES: Intracranial bleed in the left thalamic area with extension and cerebral edema with right hemiplegia, aphasia, and dysphagia. Status post trach and PEG. Acute respiratory failure, resolved. Encephalopathy due to massive bleed and hemiplegia, is improving slowly. Diabetes mellitus, type 2. Obesity. Hypertensive emergency on arrival, stable. Severe deconditioning post hemorrhagic stroke. PROCEDURES DONE DURING HOSPITALIZATION: The patient had CT brain done on the day of admission, which showed large intra-axial acute hematoma centered at the left thalamus and small amount of intraventricular extension with small amount of subarachnoid component, severe cerebral edema was seen. Echo with 2D Doppler on admission showed EF of 70% to 75%, grade 1/3 diastolic dysfunction. There was mild concentric LVH seen. The patient has had external ventricular drain placed on the right side by Dr. Mcguire on 12/12/2018, for increasing cerebral edema with mass effect. The patient had trach and PEG placed on 12/15/[address] Monroy. Thoracic and lumbar spine CT scan done on with episode of fall, showed no acute fracture or subluxation. There was degenerative disk disease seen otherwise. INPATIENT CONSULTS: 1. Dr. Maria for Neurosurgery. 2. Dr. Cameron for Pulmonology. 3. Dr. Monroy for General Surgery. DISCHARGE MEDICATIONS: 1. Protonix 40 mg p.o. daily. 2. Norvasc 10 mg p.o. daily. 3. Clonidine 0.3 mg p.o. three times daily. 4. Hydralazine 100 mg p.o. three times daily. 5. DuoNeb q.6 hourly p.r.n. 6. Labetalol 100 mg p.o. twice daily. 7. Keppra 500 mg p.o. twice daily for seizure prophylaxis. 8. Scopolamine patch 1.5 mg q.3 days. ALLERGIES: NO KNOWN DRUG ALLERGIES. DISCHARGE PLAN: The patient is being discharged to [facility] for further recuperation and recovery. BRIEF COURSE DURING HOSPITALIZATION: The patient initially got admitted on the with sudden onset of dizziness and right-sided hemiplegia while she was shopping at a grocery store. On arrival, the patient had GCS of 12 and a blood pressure of 263/131. She had clinical findings of right hemiplegia with imaging confirming thalamic hemorrhage with extension. She also required intubation for acute respiratory failure. The patient developed a massive cerebral edema, requiring external ventricular drain and mannitol infusions to reduce cerebral edema. She was also placed on multiple medications to lower her blood pressure. The patient has had placement of trach and PEG by Dr. Monroy. She was successfully weaned off ventilator and later transferred to medical floor. Her stay was prolonged in the hospital due to financial issues. The patient has been accepted to [facility] and will be shortly discharged there. At the time of discharge, the patient is breathing ambient air through her trach and not requiring any supplemental oxygen. She is still getting tube feeding through the PEG tube. The patient is barely able to stand with moderate to maximal assist and has not ambulated so far. The patient responds nonverbally and has been getting trained with a speaking valve to communicate. She will require ongoing speech evaluation and likely trach reversal at the correction. The patient also needs to mobilize herself to prevent decubitus ulcerations and further morbidity. A total of 40 minutes was spent on discharge plan. Please see a [id number] documentation for the day of discharge on [facility]. Job ID: [id number]
== END 2019-01-10 17:16 | DRG 3 ==
LOC: ERS 17:32 → CCU 19:50 → IMCU/EMU 12-19 16:02 → T4-A 12-31 11:29
PROVIDERS: ADMIT Internal Medicine; ATTEND Internal Medicine
PROC: 5A1955Z Respiratory Ventilation, Greater than 96 Consecutive Hours (ICD-10-PCS; 2018-12-10)
PROC: 0BH18EZ Insertion of Endotracheal Airway into Trachea, Via Natural or Artificial Opening Endoscopic (ICD-10-PCS; 2018-12-10)
PROC: 009630Z Drainage of Cerebral Ventricle with Drainage Device, Percutaneous Approach (ICD-10-PCS; principal; 2018-12-12)
PROC: 02H633Z Insertion of Infusion Device into Right Atrium, Percutaneous Approach (ICD-10-PCS; 2018-12-13)
PROC: 0B113F4 Bypass Trachea to Cutaneous with Tracheostomy Device, Percutaneous Approach (ICD-10-PCS; 2018-12-15)
PROC: 0DH63UZ Insertion of Feeding Device into Stomach, Percutaneous Approach (ICD-10-PCS; 2018-12-15)
DX: I61.0 Nontraumatic intracerebral hemorrhage in hemisphere, subcortical (principal); J96.00 Acute respiratory failure, unspecified whether with hypoxia or hypercapnia; G93.6 Cerebral edema; G81.91 Hemiplegia, unspecified affecting right dominant side; I16.9 Hypertensive crisis, unspecified; G91.9 Hydrocephalus, unspecified; Z68.41 Body mass index [BMI] 40.0-44.9, adult; G93.49 Other encephalopathy; R47.01 Aphasia; R13.10 Dysphagia, unspecified; I10 Essential (primary) hypertension; Z91.14 Patient's other noncompliance with medication regimen; E78.5 Hyperlipidemia, unspecified; E87.6 Hypokalemia; E66.9 Obesity, unspecified; E11.9 Type 2 diabetes mellitus without complications; R50.81 Fever presenting with conditions classified elsewhere; Z79.899 Other long term (current) drug therapy
CPT/HCPCS: 36415; 36416; 51702; 70450; 71045; 72128; 72131; 80048; 80053; 80306; 80307; 81003; 81015; 81025; 82550; 82805; 83735; 83930; 83935; 84100; 84484; 85025; 85610; 85730; 86850; 86900; 86901; 87040; 87086; 93005; 93306; 94002; 94003; 94640; 96365; 96366; 96374; 96375; A4218; C1751; J0131; J0360; J0690; J1940; J1953; J2001; J2060; J2150; J2250; J2270; J2405; J2543; J2704; J3010; J3480; J3490; J7050; J7620; J7799; S0028

== ENCOUNTER 2019-01-14 06:14 | Emergency (ER) | payer OTHER | END 2019-01-14 08:30 | disposition home or self-care (01) | LOC: ERS 06:14 | DX: Z43.0 Encounter for attention to tracheostomy (principal); I10 Essential (primary) hypertension; E78.00 Pure hypercholesterolemia, unspecified; Z79.82 Long term (current) use of aspirin | CPT/HCPCS: 31502 ==

== ENCOUNTER 2019-01-26 18:43 | Emergency (ER) | payer OTHER ==
--- NOTE | 2019-01-26 21:13 | RAD ---
PORTABLE CHEST: HISTORY: The patient removed tracheostomy tube. FINDINGS: Heart size is enlarged. Some minimal interstitial changes in the bases, probably on the basis of ate lectasis. A tracheostomy tube is seen overlying the upper trachea region. IMPRESSION: Cardiomegaly with some bibasilar interstitial changes, which appear largely related to atelectasis. POS: DARON
== END 2019-01-26 22:11 ==
LOC: ERS 18:43
DX: J95.09 Other tracheostomy complication (principal); E11.9 Type 2 diabetes mellitus without complications; I10 Essential (primary) hypertension; E78.00 Pure hypercholesterolemia, unspecified
CPT/HCPCS: 71045

== ENCOUNTER 2019-02-23 11:06 | Inpatient (IN) | payer OTHER, SELFPAY ==
[2019-02-23 11:45] LABS: #Eosinphils 0.1 thou/uL (0.0-0.7); #Lymphocytes 1.2 thou/uL (1.20-3.40); #Monocytes 0.7 thou/uL (0.11-0.59); #Neutrophils 4.7 thou/uL (1.40-6.50); %Basophils 0.2 % (0.0-1.0); %Eosinophils 1.2 % (0.0-10.0); %Lymphocytes 17.4 % (21.0-51.0); %Neutrophils 70.2 % (42.0-75.0); Hemoglobin 12.4 g/dL (12.0-16.0); Mean Corpuscular HGB CONC 32.5 g/dL (32.0-36.0); Mean Corpuscular Hemoglobin 27.1 pg (27.0-31.0); Mean Corpuscular Volume 83.4 fL (78.0-98.0); Mean Platelet Volume 9.4 fL (7.4-10.4); Platelet Count 356 thou/uL (130-400); RBC Distribution Width 15.9 % (11.5-14.5); Red Blood Cell (RBC) Count 4.58 mill/uL (4.20-5.40); White Blood Cell (WBC) Count 6.7 thou/uL (4.8-10.8)
[2019-02-23 11:55] LABS: INR-International Normal Ratio 1.1; PTT 33.6 SEC (22.9-36.1)
[2019-02-23 12:00] LABS: ALT (SGPT) 60 U/L (8-55); AST (SGOT) 21 U/L (5-34); Albumin 3.5 g/dL (3.5-5.0); Alkaline Phosphatase 115 U/L (40-150); Anion Gap 9 mmol/L (10-20); BUN (Urea Nitrogen) 9 mg/dL (7.0-18.7); Bilirubin, Total 0.4 mg/dL (0.2-1.2); Calc. Creatinine Clearance 0 mL/min (70-130); Calcium 9.2 mg/dL (7.8-10.44); Carbon Dioxide 28 mmol/L (22-29); Chloride 104 mmol/L (98-107); Estimated GFR-MDRD 90; Glucose 194 mg/dL (70-105); Protein, Total 7.5 g/dL (6.0-8.3); Sodium 138 mmol/L (136-145)
--- NOTE | 2019-02-23 12:07 | CT ---
EXAM: CTA Angio head with IV contrast and 3-D MIPS reconstructions CTA Angio neck with IV contrast and 3-D MIPS reconstructions PROVIDED CLINICAL HISTORY: Altered mental status COMPARISON: None FINDINGS: There is no evidence for significant stenosis involving the great vessels of the neck. No evidence for focal vessel stenosis, branch occlusion or aneurysm involving the intracranial circul ation. Tracheostomy appliance is noted in appropriate position. Visualized lung apices appear clear. The oss eous structures demonstrate no concerning lytic or blastic lesions. IMPRESSION: 1. Normal CT angiogram of the neck. 2. Normal CT angiogram of the brain.
--- NOTE | 2019-02-23 12:28 | RAD ---
EXAM: Portable chest PROVIDED CLINICAL HISTORY: Altered mental status COMPARISON: 01/26/2019 FINDINGS: Cardiac and mediastinal silhouette is unchanged in appearance. No focal consolidation, pleural fluid or pneumothorax evident. Tracheostomy appliance is noted. IMPRESSION: No evidence for an acute cardiopulmonary process.
--- NOTE | 2019-02-23 12:28 | CT ---
EXAM: CT Brain WO Con PROVIDED CLINICAL HISTORY: Altered mental status upon waking up this morning. History of prior hemorrhagic stroke with right-serjio ed deficits. COMPARISON: 12/18/2018 FINDINGS: There is an area of encephalomalacia seen within the left basal ganglia including the left lentiform nucleus and left thalamus and extending into the periventricular white matter on the left related to sequela of prior hemorrhagic infarction. The previously noted intraparenchymal as well as intraventri cular hemorrhage seen on prior study is not visualized on today's examination. Sulcal effacement has also resolved. Low density foci are seen within the right upper lobe related to prior tract from prio r ventriculostomy catheter. There is no evidence of an acute cortical infarction, hemorrhage, mass effect, or midline shift. Vent ricular system is normal in size, shape, and position. A eliasbeth hole right anterior frontal bone is seen related to prior ventriculostomy catheter. Osseous st ructures otherwise have normal appearance. Visualized paranasal sinuses and mastoid air cells are blanco ar. IMPRESSION: 1. No acute intracranial abnormality is demonstrated. 2. Encephalomalacia in the region of left basal ganglia and left frontal periventricular white matter related to site of prior hemorrhagic infarction. There is no evidence of acute cortical infarction o r hemorrhage on today's examination. 3. Above findings discussed with Dr. Alexandra in the emergency Department on 02/23/2019 at 1149 hours.
[2019-02-23 13:00] LABS: Bilirubin Negative (Negative); Blood, Urine Small (Negative); Clarity CLEAR (Clear); Glucose, Urine (Dipstick) Negative (Negative); Leukocyte Moderate (Negative); Nitrite Negative (Negative); Protein, Urine (Dipstick) Negative (Neg-Trace); Specific Gravity, Urine 1.021 (1.002-1.036); pH, Urine 8.5 (5.0-9.0)
[2019-02-23 13:01] LABS: Bacteria/HPF Rare-Few HPF (None Seen); Hyaline Casts/LPF 0-3 HYALINE CAST LPF (0-3 Hyaline); Pathc Cast-AUWi Flag 0.13 (0-2.49); Squamous Epithelial 0-3 HPF (0-3)
[2019-02-23] MEDS ORDERED: ISOVUE-370 76%-LOCM 1 ML ONE (13:44)
[2019-02-23] MEDS ORDERED: cefTRIAXone\\ROCEPHIN 2 GM VIAL ONE (13:51)
[2019-02-23] MEDS ORDERED: Sodium Chloride 0.9% 100 ML ONE (13:51)
[2019-02-23 14:24] LABS: Troponin I Less than 0.010 ng/mL (< 0.028)
--- NOTE | 2019-02-23 14:37 | PDOC.FPRHP ---
- History of Present Illness Chief Complaint: altered mentation History of Present Illness: 48 yo female here for altered mentation today when she woke up. 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 Lives in [place] at [facility]. Pt was having difficulty responding to questions and "acting out of the ordinary." Pt has difficult time verbalizing due to trach, which she received after stroke. , Ana Luisa Francois, provides information that patient was acting strange today when they arrived in the ER, but endorses she is currently back at baseline. No recent complaints of fever, DELA CRUZ, SOB, CP, N/V. Per dad, patient requires Jevity, but uses some mechanical soft for food. ED Course: rocephin aspirin - Allergies/Adverse Reactions Allergies Allergy/AdvReac Type Severity Reaction Status Date / Time No Known Drug Allergies Allergy Verified 02/23/19 18:49 - Home Medications Medication Instructions Recorded Confirmed Type Furosemide [Lasix] 40 mg PO BID 12/11/18 02/23/19 History Pantoprazole [Protonix] 40 mg PO DAILY 12/11/18 02/23/19 History Amlodipine [Norvasc] 10 mg PER TUBE DAILY #30 tab 01/07/19 02/23/19 Rx Labetalol [Normodyne] 100 mg PO BID #60 tab 01/07/19 02/23/19 Rx cloNIDine [Catapres] 0.3 mg PER TUBE TID #90 tab 01/07/19 02/23/19 Rx hydrALAZINE [Apresoline] 100 mg PO TID #90 tab 01/07/19 02/23/19 Rx levETIRAcetam [Keppra Oral 500 mg PO BID #300 ml 01/07/19 02/23/19 Rx Solution] - History PMHx: DMII HTN 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 PSHx: unable to obtain FHx:unable to obtain Social: denies smoking, EtOH, rec drug use - Review of Systems ROS unobtainable: other (difficulty obraining ROS 2/2 trach and no family in room) General: denies: fever/chills Respiratory: denies: shortness of breath Cardiovascular: denies: chest pain, palpitation Gastrointestinal: denies: nausea, vomiting - Vital signs BP: 145/94 HR: 82 RR: 21 Tmax: 98.8 Pox: 99% on 99 Wt: 100kg - Physical Exam Constitutional: NAD, well developed HEENT: PERRLA, EOMI Neck: trachea midline Heart: RRR, normal S1/S2 Lungs: CTAB, no wheezing Abdomen: soft, non-tender Musculoskeletal: normal structure Neurological: other (decreased eyebrow raise on right, asymmetric smile decreased on right, no sensation or movement of right UE and LE) Heme/Lymphatic: no unusual bruising or bleeding Psychiatric: normal mood and affect FMR H&P: Results - Labs Result Diagrams: 02/23/19 11:36 02/23/19 11:36 Lab results: WBC 6.7 thou/uL (4.8-10.8) 02/23/19 11:36 Hgb 12.4 g/dL (12.0-16.0) 02/23/19 11:36 Hct 38.2 % (36.0-47.0) 02/23/19 11:36 MCV 83.4 fL (78.0-98.0) 02/23/19 11:36 Plt Count 356 thou/uL (130-400) 02/23/19 11:36 Neutrophils % 70.2 % (42.0-75.0) 02/23/19 11:36 Sodium 138 mmol/L (136-145) 02/23/19 11:36 Potassium 3.0 mmol/L (3.5-5.1) L 02/23/19 11:36 Chloride 104 mmol/L (98-107) 02/23/19 11:36 Carbon Dioxide 28 mmol/L (22-29) 02/23/19 11:36 BUN 9 mg/dL (7.0-18.7) 02/23/19 11:36 Creatinine 0.83 mg/dL (0.6-1.1) 02/23/19 11:36 Glucose 194 mg/dL (70-105) H 02/23/19 11:36 Calcium 9.2 mg/dL (7.8-10.44) 02/23/19 11:36 Total Bilirubin 0.4 mg/dL (0.2-1.2) 02/23/19 11:36 AST 21 U/L (5-34) 02/23/19 11:36 ALT 60 U/L (8-55) H 02/23/19 11:36 Alkaline Phosphatase 115 U/L (40-150) 02/23/19 11:36 Serum Total Protein 7.5 g/dL (6.0-8.3) 02/23/19 11:36 Albumin 3.5 g/dL (3.5-5.0) 02/23/19 11:36 Urine Ketones Negative mg/dL (Negative) 02/23/19 12:40 Urine Blood Small (Negative) H 02/23/19 12:40 Urine Nitrite Negative (Negative) 02/23/19 12:40 Ur Leukocyte Esterase Moderate (Negative) H 02/23/19 12:40 Urine RBC 11-20 HPF (0-3) H 02/23/19 12:40 Urine WBC 11-20 HPF (0-3) H 02/23/19 12:40 Ur Squamous Epith Cells 0-3 HPF (0-3) 02/23/19 12:40 Urine Bacteria Rare-Few HPF (None Seen) 02/23/19 12:40 - EKG Interpretation EKG: NSR - Radiology Interpretation CT scan - head Status: report reviewed by me (no acute intracranial abnormality is demonstrated ; encephalomalacia in the region of the left basal ganglia and left frontal periventricluar white matter related to site of prior hemorrhagic infarction; no evidence of acute cortical infarction or hemorrhage) FMR H&P: A/P - Problem List (1) History of hemorrhagic stroke with residual hemiparesis Current Visit: Yes Status: Acute Code(s): I69.359 - HEMIPLGA FOLLOWING CEREBRAL INFARCTION AFFECTING UNSP SIDE (2) HTN (hypertension) Current Visit: No Status: Chronic Code(s): I10 - ESSENTIAL (PRIMARY) HYPERTENSION Qualifiers: Hypertension type: essential hypertension Qualified Code(s): I10 - Essential (primary) hypertension Comment: Improved, continue Hydralazine 100mg TID, Clonidine 0.3mg TID,titrate to optimal response, serial BP monitoring (3) Obesity Current Visit: No Status: Chronic Code(s): E66.9 - OBESITY, UNSPECIFIED Qualifiers: Obesity classification: adult class 3 (BMI >= 40) Body mass index: BMI 40.0 -44.9 (4) Acute encephalopathy Current Visit: No Status: Resolved Code(s): G93.40 - ENCEPHALOPATHY, UNSPECIFIED Comment: Secondary to ICH, improved (5) UTI (urinary tract infection) Current Visit: Yes Status: Acute - Plan #encephalopathy, TIA vs CVA -Initial imaging negative for acute event, CT and CTA head/neck -will get MRI -pt back to baseline per -control BP with home meds -will also discuss with Dr. Cameron to see if trach can be removed during this hospital visit #UTI -rocephin given in the ED -urine culture #HTN -continue home meds #DMII -per records -continue to manage with diet -will have dietitian evaluate for jevity recs Disposition/LOS: Stroke 1-2 days SCDs Full code FMR H&P: Upper Level - Plan Date/Time: 02/23/19 [id number] I, [], have evaluated this patient and agree with findings/plan as outlined by internal control analyst resident. Pertinent changes/additions are listed here.
[2019-02-23] MEDS ORDERED: cloNIDine 0.3 MG TAB PO SCH (16:00)
[2019-02-23 17:58] VITALS: BMI 33.5
[2019-02-23 18:22] LABS: Troponin I Less than 0.010 ng/mL (< 0.028)
[2019-02-23] MEDS: cloNIDine 0.3 MG TAB PO SCH (20:56)
[2019-02-23] MEDS: hydrALAZINE 25 MG TAB PO SCH (20:56)
[2019-02-23] MEDS: Labetalol 100 MG TAB PO SCH (20:57)
[2019-02-23] MEDS: levETIRAcetam 500 mg/5 ml Oral Solution PO SCH (20:57)
--- NOTE | 2019-02-24 05:45 | PDOC.FM ---
- Subjective Subjective: Mrs. Villarreal denies any pain or that anything is bothering her. not in room. Communication difficult with patient. She is alert and awake. - Objective MAR Reviewed: Yes Vital Signs & Weight: Vital Signs (12 hours) Temp Pulse Resp BP BP Pulse Ox 02/24/19 04:00 98.7 F 72 17 143/77 H 97 02/24/19 00:00 98.5 F 82 19 156/83 H 95 02/23/19 21:03 146/79 H 02/23/19 20:57 78 130/57 L 02/23/19 20:56 78 130/57 L 02/23/19 20:00 98.9 F 78 19 143/76 H 97 02/23/19 18:10 166/85 H Weight Weight 99.972 kg I&O: 02/22/19 02/23/19 02/24/19 06:59 06:59 06:59 Output Total 1600 Balance -1600 Result Diagrams: 02/24/19 10:25 02/24/19 10:25 Phys Exam - Physical Examination Constitutional: NAD Respiratory: clear to auscultation bilateral Cardiovascular: RRR, no significant murmur Gastrointestinal: soft, non-tender, positive bowel sounds deficits at baseline Skin: normal turgor Dx/Plan (1) Altered mental status Code(s): R41.82 - ALTERED MENTAL STATUS, UNSPECIFIED Status: Acute (2) History of hemorrhagic stroke with residual hemiparesis Code(s): I69.359 - HEMIPLGA FOLLOWING CEREBRAL INFARCTION AFFECTING UNSP SIDE Status: Acute (3) UTI (urinary tract infection) Status: Acute (4) DM type 2 (diabetes mellitus, type 2) Status: Acute Qualifiers: Diabetes mellitus rodent exterminator insulin use: without rodent exterminator use Diabetes mellitus complication status: with unspecified complications Qualified Code(s) : E11.8 - Type 2 diabetes mellitus with unspecified complications (5) Hypokalemia Code(s): E87.6 - HYPOKALEMIA Status: Acute (6) ICH (intracerebral hemorrhage) Code(s): I61.9 - NONTRAUMATIC INTRACEREBRAL HEMORRHAGE, UNSPECIFIED Status: Acute Qualifiers: Intracerebral hemorrhage etiology: nontraumatic Laterality: left (7) HTN (hypertension) Code(s): I10 - ESSENTIAL (PRIMARY) HYPERTENSION Status: Chronic Qualifiers: Hypertension type: essential hypertension Qualified Code(s): I10 - Essential (primary) hypertension (8) Obesity Code(s): E66.9 - OBESITY, UNSPECIFIED Status: Chronic Qualifiers: Obesity classification: adult class 3 (BMI >= 40) Body mass index: BMI 40.0 -44.9 (9) Hypertensive emergency Code(s): I16.1 - HYPERTENSIVE EMERGENCY Status: Resolved - Plan Plan: Encephalopathy, TIA vs CVA -Initial imaging negative for acute event, CT and CTA head/neck -MRI negative for acute findings - PT/OT/speech consults -pt back to baseline per -control BP with home meds -Pulmonology consult pending for trach evaluation UTI -rocephin started in ED -urine culture pending HTN -continue home meds DMII -per records -continue to manage with diet -will have dietitian evaluate for jevity recs SCDs Full code Dispo: after pulm consult may consider discharge back to [place] if continues to be back at baseline Addendum - Attending - Attending Attestation Date/Time: 02/24/19 1602 I personally evaluated the patient and discussed the management with Dr. Benitez I agree with the History, Examination, Assessment and Plan documented above with any addition or exceptions noted below. Patient MRI no acute changes verbal involuting hematoma noted prior from ICH. UTI noted question further clark catheter AMS resolved. Discussed care plan with spouse who relates patient back to baseline.
[2019-02-24] MEDS ORDERED: Amlodipine 10 MG TAB PO SCH (09:00)
--- NOTE | 2019-02-24 09:09 | MRI ---
MRI BRAIN NONCONTRAST: DATE: 02/24/19 HISTORY: 48-year-old female with history of hemorrhagic stroke. Current symptoms of TIA versus acute stroke. COMPARISON: No prior brain MRIs are available. Most recent brain CT of 02/23/19 is available. FINDINGS: There is an irregularly shaped lesion in the left cerebrum representing an involuting subacute intra- axial hematoma, which roughly measures approximately 4 x 3 x 2.5 cm (although the measurements are ne cessarily very imprecise because of the very irregular shape). It involves the left thalamus and cont iguously involves the posterior aspects of the left basal ganglia, posterior limb of left internal ca psule, left external capsule, left connolly radiata, and small portion of the left caudate body. It has a hemosiderin rim. The central portion consists of extracellular methemoglobin. The superior compone nt in the left connolly radiata is probably transitioning between edema and early gliosis. The central portion of the hematoma has restricted diffusion, as expected, but there are no areas of restricted d iffusion outside of the hematoma to indicate any acute infarction. Again noted is the tract, with hem osiderin stain, along the course of the previously removed right ventriculostomy catheter. Ventricles are normal in size and configuration. No mass effect or midline shift. No new hemorrhage or extra-ax ial fluid collection. IMPRESSION: 1. No acute infarction. 2. Involuting intra-axial subacute hematoma involving the left thalamus and left corpus striatum. ARGENIS Ferrell POS: TPC
[2019-02-24] MEDS: hydrALAZINE 25 MG TAB PO SCH ×3 (09:42→20:29)
[2019-02-24] MEDS: cloNIDine 0.3 MG TAB PO SCH ×3 (09:42→20:29)
[2019-02-24] MEDS: Labetalol 100 MG TAB PO SCH ×2 (09:42→20:29)
[2019-02-24] MEDS: Furosemide 40 MG TAB PO SCH (09:43)
[2019-02-24 10:33] LABS: #Eosinphils 0.1 thou/uL (0.0-0.7); #Lymphocytes 1.2 thou/uL (1.20-3.40); #Monocytes 0.5 thou/uL (0.11-0.59); %Basophils 0.6 % (0.0-1.0); %Eosinophils 1.8 % (0.0-10.0); %Lymphocytes 24.9 % (21.0-51.0); %Monocytes 11.1 % (0.0-10.0); %Neutrophils 61.5 % (42.0-75.0); Hemoglobin 12.4 g/dL (12.0-16.0); Mean Corpuscular Hemoglobin 26.7 pg (27.0-31.0); Mean Corpuscular Volume 83.3 fL (78.0-98.0); Mean Platelet Volume 9.1 fL (7.4-10.4); Platelet Count 368 thou/uL (130-400); RBC Distribution Width 15.9 % (11.5-14.5); Red Blood Cell (RBC) Count 4.64 mill/uL (4.20-5.40); White Blood Cell (WBC) Count 4.9 thou/uL (4.8-10.8)
[2019-02-24] MEDS: levETIRAcetam 500 mg/5 ml Oral Solution PO SCH ×2 (10:48→20:28)
[2019-02-24 10:54] LABS: Anion Gap 12 mmol/L (10-20); BUN (Urea Nitrogen) 7 mg/dL (7.0-18.7); Calc. Creatinine Clearance 152 mL/min (70-130); Calcium 9.5 mg/dL (7.8-10.44); Carbon Dioxide 26 mmol/L (22-29); Chloride 106 mmol/L (98-107); Estimated GFR-MDRD Greater than 90; Glucose 119 mg/dL (70-105); Potassium 3.2 mmol/L (3.5-5.1); Sodium 141 mmol/L (136-145)
--- NOTE | 2019-02-24 12:18 | CT ---
EXAM: CTA Angio head with IV contrast and 3-D MIPS reconstructions CTA Angio neck with IV contrast and 3-D MIPS reconstructions PROVIDED CLINICAL HISTORY: Altered mental status COMPARISON: None FINDINGS: There is no evidence for significant stenosis involving the great vessels of the neck. No evidence for focal vessel stenosis, branch occlusion or aneurysm involving the intracranial circul ation. Tracheostomy appliance is noted in appropriate position. Visualized lung apices appear clear. The oss eous structures demonstrate no concerning lytic or blastic lesions. IMPRESSION: 1. Normal CT angiogram of the neck. 2. Normal CT angiogram of the brain. Transcribed Date/Time: 02/24/2019 12:18 PM
--- NOTE | 2019-02-24 23:09 | CON ---
DATE OF CONSULTATION: 02/24/2019 HISTORY: A 48-year-old female who unfortunately had a hemorrhagic CVA in November. She had a tracheostomy and a feeding tube placed. She has been living in a [facility] and being febrile last 2 weeks. Her says he was feeding her before that. She passed a swallowing evaluation today. The consult was for possible removal of the tracheostomy. She has had no respiratory issues since discharge from the hospital. She is smiling and appropriate. She tries to answer questions with yeses and noes, but gets a borderline yes out. She does look 100% better in the last time I saw her. PAST MEDICAL HISTORY: Remarkable for hypertension and cholecystectomy. She has a very supportive . SOCIAL HISTORY: She is nonsmoker and nondrinker. FAMILY HISTORY: Negative for lung disease in early age. REVIEW OF SYSTEMS: 10 point review of systems completed, not accurately obtainable from her, but the says there have been no other issues. PHYSICAL EXAMINATION: VITAL SIGNS: Blood pressure 173/82, heart rate 68, respiratory rate 18, and oximetry is 99 on room air. GENERAL: She has a facial droop that is still there. Again as mentioned, she tries to get a word out, but is not very successful in forming words. This is better though than she was when she was in and she is making much more eye contact, much more interactive and actually smiles quickly now. LUNGS: Clear. HEENT: Pupils react. NECK: Supple. HEART: Regular rhythm. S1 and S2 are normal. ABDOMEN: Soft and nontender. EXTREMITIES: Without clubbing, cyanosis, or edema. She is still hemiplegic on the right. LABORATORY DATA: White count 4.9, hemoglobin 12.4, and platelets 368. Sodium 141, potassium 3.2, chloride 106, bicarb 26, BUN 7, and creatinine 0.73, and glucose 119. IMPRESSION: 1. Status post thalamic hemorrhage ?secondary to hypertension. 2. Status post mechanical ventilation for her stroke, now with tracheostomy. She may be a candidate to remove this. 3. Neurogenic edema last admission. Chest x-ray is unremarkable. 4. ?Seizures while she is in the hospital last admission. She is still on Keppra. 5. Hypertension, on Norvasc, Catapres, Lasix, hydralazine, and labetalol. 6. She had her Catapres increased to 0.3 t.i.d. We might find that she has somnolence with this, but she also might tolerate this. I talked to Dr. Cameron, who had seen her in the past. She may be a candidate for decannulation. This is a 50 minute consult, with greater than 50% of time spent on unit coordinating care. Job ID: [id number] MTDD
--- NOTE | 2019-02-25 06:20 | PDOC.FM ---
- Subjective Subjective: Ms. Villarreal denies pain. Discussed plan for today with patient and she expressed understanding. - Objective MAR Reviewed: Yes Vital Signs & Weight: Vital Signs (12 hours) Temp Pulse Resp BP BP Pulse Ox 02/25/19 04:00 98.5 F 64 19 160/81 H 97 02/25/19 00:00 98.3 F 67 18 136/74 98 02/24/19 20:29 67 166/78 H 02/24/19 20:00 98.4 F 69 18 135/80 100 Weight Admit Weight 99.972 kg Weight 99.972 kg I&O: 02/23/19 02/24/19 02/25/19 06:59 06:59 06:59 Intake Total 180 Output Total 2100 600 Balance -2100 -420 Result Diagrams: 02/24/19 10:25 02/24/19 10:25 Phys Exam - Physical Examination Constitutional: NAD Respiratory: clear to auscultation bilateral Cardiovascular: RRR, no significant murmur Gastrointestinal: soft, non-tender Baseline R sided paralysis Skin: normal turgor Dx/Plan (1) Altered mental status Code(s): R41.82 - ALTERED MENTAL STATUS, UNSPECIFIED Status: Acute (2) History of hemorrhagic stroke with residual hemiparesis Code(s): I69.359 - HEMIPLGA FOLLOWING CEREBRAL INFARCTION AFFECTING UNSP SIDE Status: Acute (3) UTI (urinary tract infection) Status: Acute (4) DM type 2 (diabetes mellitus, type 2) Status: Acute Qualifiers: Diabetes mellitus joint terminal attack controller insulin use: without fdc use Diabetes mellitus complication status: with unspecified complications Qualified Code(s) : E11.8 - Type 2 diabetes mellitus with unspecified complications (5) Hypokalemia Code(s): E87.6 - HYPOKALEMIA Status: Acute (6) ICH (intracerebral hemorrhage) Code(s): I61.9 - NONTRAUMATIC INTRACEREBRAL HEMORRHAGE, UNSPECIFIED Status: Acute Qualifiers: Intracerebral hemorrhage etiology: nontraumatic Laterality: left (7) HTN (hypertension) Code(s): I10 - ESSENTIAL (PRIMARY) HYPERTENSION Status: Chronic Qualifiers: Hypertension type: essential hypertension Qualified Code(s): I10 - Essential (primary) hypertension (8) Obesity Code(s): E66.9 - OBESITY, UNSPECIFIED Status: Chronic Qualifiers: Obesity classification: adult class 3 (BMI >= 40) Body mass index: BMI 40.0 -44.9 - Plan Plan: AMS, TIA vs UTI -Initial imaging negative for acute event, CT and CTA head/neck -MRI negative for acute findings - PT/OT/speech consults -pt back to baseline per -control BP with home meds -Pulmonology consult for trach evaluation UTI -rocephin (02/23) -urine culture pending - mixed results to date HTN -continue home meds DMII -per records -continue to manage with diet -will have dietitian evaluate SCDs Full code Dispo: pending pulm recommendations regarding trach, otherwise at baseline and could return to [place] today Addendum - Attending - Attending Attestation Date/Time: 02/25/19 4580 I personally evaluated the patient and discussed the management with Dr. Benitez I agree with the History, Examination, Assessment and Plan documented above with any addition or exceptions noted below. Trach removed patient stable transfer back to [place].
[2019-02-25] MEDS ORDERED: Potassium Chloride 20 MEQ TAB PO SCH (06:30)
[2019-02-25] MEDS: levETIRAcetam 500 mg/5 ml Oral Solution PO SCH (08:36)
[2019-02-25] MEDS: hydrALAZINE 25 MG TAB PO SCH ×2 (08:37→14:10)
[2019-02-25] MEDS: Furosemide 40 MG TAB PO SCH (08:39)
[2019-02-25] MEDS: cloNIDine 0.3 MG TAB PER TUBE SCH ×2 (08:40→14:10)
[2019-02-25] MEDS: Labetalol 100 MG TAB PO SCH (08:40)
[2019-02-25] MEDS ORDERED: Amlodipine 10 MG TAB PER TUBE SCH (09:00)
--- NOTE | 2019-02-25 10:22 | PRG ---
DATE OF SERVICE: 02/25/2019 SUBJECTIVE: She is awake, alert, doing well. She actually has a size 4 tracheostomy and I am not sure where it was downsized. She is able to talk well with speaking valve on. She is able to eat without difficulty. OBJECTIVE: VITAL SIGNS: On exam, temperature is 97.9, pulse 64, and blood pressure 184/83. HEENT: Unremarkable. NECK: No JVD. CHEST: Clear. CARDIAC: S1 and S2, regular. ABDOMEN: Soft. EXTREMITIES: No edema. ASSESSMENT: 1. Status post cerebrovascular accident. 2. Status post tracheostomy placement. PLAN: Decannulate tracheostomy. She will need to have a bandage placed over this until the ostomy site closes. No further Pulmonary recommendations. Please recall if further assistance is needed. Job ID: [id number]
[2019-02-25 12:25] VITALS: TEMP 97.6
[2019-02-25 13:50] VITALS: BP 164/83
--- NOTE | 2019-02-26 09:05 | EKG ---
Test Reason : WEAKNESS Blood Pressure : / mmHG Vent. Rate : 099 BPM Atrial Rate : 099 BPM P-R Int : 136 ms QRS Dur : 078 ms QT Int : 374 ms P-R-T Axes : 071 013 001 degrees QTc Int : 479 ms Normal sinus rhythm Minimal voltage criteria for LVH, may be normal variant Borderline ECG Confirmed by MAEGAN BUNN D.O. ([id number]), manuscript editor ANNITA CLEANING ([id number]) on 02/26/2019 9:05:15 AM Referred By: Confirmed By:MAEGAN BUNN D.O.
--- NOTE | 2019-02-28 10:13 | DIS ---
DATE OF ADMISSION: 02/23/2019 DATE OF DISCHARGE: 02/25/2019 ADMITTING ATTENDING: Ad Dorantes MD. DISCHARGE ATTENDING: Patel Linton MD. RESIDENT: Ivette Benitez DO. CONSULTS: Pulmonary, Dr. Tam Jane. PROCEDURES: 1. On 02/23/2019, chest x-ray showed no acute cardiopulmonary process. 2. On 02/23/2019, brain CT showed no acute intracranial abnormality, encephalomalacia in the region of the left basal ganglia and left frontal periventricular white matter related to of prior hemorrhagic infarction. No evidence of acute cortical infarction or hemorrhage on today's examination. 3. CTA showed normal CT angiogram of the neck and normal CT angiogram of the brain. 4. On 02/23/2019, brain MRI showed no acute infarction, including intra-axial subacute hematoma involving the left thalamus and left corpus striatum. PRIMARY DIAGNOSES: 1. Altered mental status. 2. Urinary tract infection. SECONDARY DIAGNOSES: 1. Hypertension. 2. Type 2 diabetes. DISCHARGE MEDICATIONS: 1. Pantoprazole 40 mg p.o. daily. 2. Furosemide 40 mg p.o. b.i.d. 3. Amlodipine 10 mg per tube daily. 4. Clonidine 0.3 mg per tube t.i.d. 5. Hydralazine 100 mg p.o. t.i.d. 6. Labetalol 100 mg p.o. b.i.d. 7. Levetiracetam 500 mg p.o. b.i.d. HISTORY OF PRESENT ILLNESS: A 48-year-old female with past medical history of hemorrhagic CVA in November 2018 with right-sided residual paralysis presented from the [facility] due to altered mentation. She was reported to be acting out of the ordinary. She was admitted for altered mental status with concern for possible TIA versus stroke. Imaging was completed as above and was not consistent with a stroke. The patient's mental status rapidly improved and she was back at baseline for the rest of the hospitalization. Thought was that this was likely due to urinary tract infection . The patient is to continue on home medications as previously prescribed. Pulmonology was consulted and Dr. Cameron decannulated the tracheostomy on 02/25/2019. Recommended a bandage to be placed over this until the ostomy site closes and had no other further pulmonary recommendations. The patient was discharged back to the long-term in stable condition. DISPOSITION: Stable. DISCHARGE INSTRUCTIONS: 1. Location: [facility], [place]. 2. Diet: Feedings as previously managed through PEG. 3. Activity as tolerated. 4. Follow up with PCP, Dr. Figueroa within 7 days. Job ID: [id number]
== END 2019-02-25 14:18 | DRG 690 ==
LOC: ERS 11:06 → 2SE 15:49
PROVIDERS: ADMIT Family Medicine; ATTEND Family Medicine
DX: N39.0 Urinary tract infection, site not specified (principal); Z68.41 Body mass index [BMI] 40.0-44.9, adult; I16.1 Hypertensive emergency; I69.151 Hemiplegia and hemiparesis following nontraumatic intracerebral hemorrhage affecting right dominant side; G45.9 Transient cerebral ischemic attack, unspecified; E11.9 Type 2 diabetes mellitus without complications; E66.9 Obesity, unspecified; R56.9 Unspecified convulsions; E87.6 Hypokalemia; Z93.0 Tracheostomy status; Z79.899 Other long term (current) drug therapy
CPT/HCPCS: 36415; 36416; 70450; 70496; 70498; 70551; 71045; 80048; 80053; 80061; 81003; 81015; 84484; 85025; 85610; 85730; 87086; 93005; 96365; J0696; J3490

== ENCOUNTER 2019-02-27 08:00 | Emergency (ER) | payer SELFPAY ==
--- NOTE | 2019-02-27 08:33 | RAD ---
EXAM: Portable chest PROVIDED CLINICAL HISTORY: Altered mental status COMPARISON: 02/23/2019 FINDINGS: Cardiac and mediastinal silhouette is stable in appearance. No focal consolidation, pleural fluid or pneumothorax evident. Tracheostomy appliance is no longer visualized, with surgical clips seen in this location. IMPRESSION: No evidence for an acute cardiopulmonary process.
[2019-02-27 08:35] LABS: Bilirubin Negative (Negative); Blood, Urine Moderate (Negative); Clarity CLEAR (Clear); Glucose, Urine (Dipstick) Negative (Negative); Leukocyte Negative (Negative); Nitrite Negative (Negative); Protein, Urine (Dipstick) Negative (Neg-Trace); Specific Gravity, Urine 1.005 (1.002-1.036); Urobilinogen 0.2 mg/dL (0.2-1.0)
[2019-02-27 08:37] LABS: Bacteria/HPF None Seen HPF (None Seen); Hyaline Casts/LPF 7-10 HYALINE CAST LPF (0-3 Hyaline); RBC/HPF GREATER THAN 50-TNTC HPF (0-3); Squamous Epithelial 0-3 HPF (0-3); WBC/HPF 0-3 HPF (0-3)
[2019-02-27 08:45] LABS: #Eosinphils 0.1 thou/uL (0.0-0.7); #Lymphocytes 1.4 thou/uL (1.20-3.40); #Monocytes 0.7 thou/uL (0.11-0.59); #Neutrophils 4.7 thou/uL (1.40-6.50); %Basophils 0.7 % (0.0-1.0); %Eosinophils 1.2 % (0.0-10.0); %Monocytes 10.4 % (0.0-10.0); %Neutrophils 67.8 % (42.0-75.0); Hemoglobin 12.4 g/dL (12.0-16.0); Mean Corpuscular HGB CONC 31.4 g/dL (32.0-36.0); Mean Corpuscular Hemoglobin 26.6 pg (27.0-31.0); Mean Corpuscular Volume 84.6 fL (78.0-98.0); Mean Platelet Volume 9.5 fL (7.4-10.4); Platelet Count 367 thou/uL (130-400); Red Blood Cell (RBC) Count 4.67 mill/uL (4.20-5.40)
[2019-02-27 09:07] LABS: ALT (SGPT) 64 U/L (8-55); AST (SGOT) 32 U/L (5-34); Albumin 3.9 g/dL (3.5-5.0); Alkaline Phosphatase 125 U/L (40-150); Anion Gap 14 mmol/L (10-20); BUN (Urea Nitrogen) 10 mg/dL (7.0-18.7); Bilirubin, Total 0.4 mg/dL (0.2-1.2); Calc. Creatinine Clearance 0 mL/min (70-130); Calcium 9.8 mg/dL (7.8-10.44); Carbon Dioxide 26 mmol/L (22-29); Chloride 106 mmol/L (98-107); Estimated GFR-MDRD 88; Globulin 3.8 g/dL (2.4-3.5); Glucose 132 mg/dL (70-105); Potassium 3.2 mmol/L (3.5-5.1); Protein, Total 7.7 g/dL (6.0-8.3); Sodium 143 mmol/L (136-145)
--- NOTE | 2019-02-27 09:22 | CT ---
EXAM: CT Brain WO Con PROVIDED CLINICAL HISTORY: Altered mental status COMPARISON: 02/23/2019 FINDINGS: The ventricular system appears normal in size and morphology. There is no evidence for intracranial h emorrhage or mass effect. Encephalomalacia as previously described appears stable. The extracranial soft tissues and osseous structures appear unremarkable. IMPRESSION: No evidence for acute intracranial hemorrhage or mass effect.
== END 2019-02-27 12:29 ==
LOC: ERS 08:00
DX: R41.82 Altered mental status, unspecified (principal); I10 Essential (primary) hypertension; E78.5 Hyperlipidemia, unspecified; E11.9 Type 2 diabetes mellitus without complications; Z86.73 Personal history of transient ischemic attack (TIA), and cerebral infarction without residual deficits; Z79.899 Other long term (current) drug therapy
CPT/HCPCS: 36415; 70450; 71045; 80053; 81003; 81015; 83605; 84484; 85025; 93005; 96360